=== PATIENT | female | born 1940 | race Asian ===

== ENCOUNTER 2016-07-28 00:41 | Inpatient (IN) | payer OTHER ==
[2016-07-28] MEDS ORDERED: dilTIAZem HCL 125 MG/25 ML - 25 ML VIAL ONE (00:55)
[2016-07-28] MEDS ORDERED: ADENOSINE 6 MG/2 ML VIAL IVPUSH ONE (00:55)
[2016-07-28 01:15] VITALS: BMI 16.1
[2016-07-28] MEDS ORDERED: SODIUM CHLORIDE 1,000 ML IV STA ×2 (01:15→03:11)
[2016-07-28] MEDS ORDERED: PANTOPRAZOLE SODIUM 40 MG in SODIUM CHLORIDE 100 ML IVPB ONE (01:15)
[2016-07-28] MEDS ORDERED: PANTOPRAZOLE SODIUM 40 MG VIAL ONE (01:19)
[2016-07-28 01:32] LABS: BASOPHIL 0.3 % (0-2.0); EOSINOPHIL 0.1 % (0-4.5); MCH 34.4 pg (25.7-33.7); MCHC 34.3 g/dl (32.0-36.0); MEAN CELL VOLUME 100.3 fl (80-96); MEAN PLT VOLUME 8.4 fl (7.5-11.1); NEUTROPHILS 82.2 % (42.8-82.8); PLATELET COUNT 143 K/MM3 (134-434); RDW 12.4 % (11.6-15.6); WHITE BLOOD COUNT 10.3 K/mm3 (4.0-10.0)
[2016-07-28 01:46] LABS: INR 1.29 (0.82-1.09); PROTHROMBIN TIME (PATIENT) 14.3 SEC (9.98-11.88)
[2016-07-28 01:48] LABS: ACTIVATED PTT 36.4 SECONDS (26.9-34.4)
[2016-07-28 01:54] LABS: ALBUMIN 2.8 g/dl (3.4-5.0); ANION GAP 11 (8-16); BILIRUBIN,TOTAL 0.9 mg/dL (0.2-1.0); CALCIUM 7.6 mg/dL (8.5-10.1); CO2 24 mmol/L (21-32); CREATININE 0.8 mg/dL (0.55-1.02); GLUCOSE,RANDOM 116 mg/dL (74-106); SGOT/AST 17 U/L (15-37); SGPT/ALT 11 U/L (12-78); TOT PROT 5.8 g/dl (6.4-8.2)
[2016-07-28 01:57] LABS: ALK PHOS 46 U/L (45-117); TROPONIN I 0.02 ng/ml (0.00-0.05)
[2016-07-28] MEDS ORDERED: KCL 10 MEQ IVPB 100 ML IVPB SCH (03:15)
[2016-07-28] MEDS ORDERED: KCL 10 MEQ IVPB 100 ML IVPB ONE (03:18)
--- NOTE | 2016-07-28 05:17 | PDOC ---
History of Present Illness - General Chief Complaint: Irregular Heart Beat Stated Complaint: CHEST PAIN Time Seen by Provider: 07/28/16 01:09 History Source: Patient Exam Limitations: No Limitations - History of Present Illness Initial Comments: 07/28/16 05:12 76yo Female patient w/ PmHx: HTN, CVA, Asthma, COPD presents to ED c/o Chest Pain radiating to her left shoulder. Patient denies nausea, vomiting, diarrhea, fever, trouble breathing, back pain, dizziness, lightheadedness, syncope or any other complaints at this time. Presenting Symptoms: Chest Pain Timing/Duration: reports: constant Severity/Quality: reports: moderate Location: reports: substernal Chest Pain Radiation: reports: arms, shoulders Activities at Onset: reports: no specific activity Past History - Travel Traveled outside of the country in the last 30 days: No Close contact w/someone who was outside of country & ill: No - Past Medical History Allergies/Adverse Reactions: Allergies Allergy/AdvReac Type Severity Reaction Status Date / Time No Known Allergies Allergy Verified 11/26/15 23:48 Home Medications: Ambulatory Orders Aspirin [David Chewable] 81 mg PO DAILY 11/27/15 Cholecalciferol (Vitamin D3) [Vitamin D3 -] 50,000 unit PO WEEKLY 11/27/15 Esomeprazole Magnesium [Nexium 24Hr] 40 mg PO DAILY 11/27/15 Ferrous Sulfate 325 mg PO DAILY 11/27/15 Fluticasone/Salmeterol [Advair 250-50 Diskus] 1 each IH BID 11/27/15 Folic Acid 1 mg PO DAILY 11/27/15 Mirabegron [Myrbetriq] 25 mg PO DAILY 11/27/15 Nitroglycerin [Nitrostat] 0.4 mg SL PRN PRN 11/27/15 Raloxifene HCl 60 mg PO DAILY 11/27/15 Sennosides [Senna] 8.6 mg PO DAILY 11/27/15 Simvastatin 20 mg PO DAILY 11/27/15 Tiotropium [place] [Spiriva] 1 inh PO DAILY 11/27/15 Umeclidinium Brm/Vilanterol Tr [Anoro Ellipta 62.5-25 Mcg INH] 1 each IH ASDIR 11/27/15 Valsartan/Hydrochlorothiazide [Valsartan-Hctz 80-12.5 mg Tab] 1 each PO DAILY Vit B12/FA/Pyridoxine HCl/Aa15 [Glycotrol Capsule] 1 each PO DAILY 11/27/15 Anemia: No Asthma: No Cancer: No Cardiac Disorders: Yes CVA: No COPD: Yes CHF: No Dementia: No Diabetes: No GI Disorders: No Disorders: No HTN: Yes Hypercholesterolemia: Yes Liver Disease: No Seizures: No Thyroid Disease: No - Surgical History Abdominal Surgery: No Appendectomy: No Cardiac Surgery: No Cholecystectomy: No Lung Surgery: No Neurologic Surgery: No Orthopedic Surgery: No - Psycho/Social/Smoking Cessation Hx Anxiety: No Suicidal Ideation: No Smoking Status: No Smoking History: Unknown if ever smoked Have you smoked in the past 12 months: No Number of Cigarettes Smoked Daily: 0 Hx Alcohol Use: No Drug/Substance Use Hx: No Substance Use Type: None Cardiac Specific PMH - Complaint Specific PMHX Pacemaker: No Review of Systems - Review of Systems Able to Perform ROS?: Yes Is the patient limited Ukrainian proficient: No Constitutional: No: Chills, Fever Respiratory: No: Cough, Shortness of Breath, Stridor, Wheezing Cardiac (ROS): Yes: Chest Pain, Chest Tightness. No: Edema, Irregular Heart Rate, Palpitations, Syncope ABD/GI: No: Constipated, Diarrhea, Nausea, Vomiting : No: Burning, Dysuria, Discharge, Hematuria, Pain Musculoskeletal: No: Back Pain, Gout, Muscle Pain Integumentary: No: Bruising, Erythema, Rash, Sweating Neurological: No: Seizure, Tingling, Ataxia, Dizziness All Other Systems: Reviewed and Negative *Physical Exam - Vital Signs Last Vital Signs Temp Pulse Resp BP Pulse Ox 98.2 F 78 20 96/54 97 07/28/16 00:53 07/28/16 06:23 07/28/16 06:23 07/28/16 06:23 07/28/16 06:23 - Physical Exam General Appearance: Yes: Nourished, Appropriately Dressed. No: Apparent Distress, Mild Distress, Moderate Distress, Severe Distress HEENT: positive: EOMI, ZAINA, Normal ENT Inspection, Normal Voice, TMs Normal, Pharynx Normal, Photophobia Neck: positive: Trachea midline, Supple. negative: Rigidity, Tender lateral Respiratory/Chest: positive: Lungs Clear, Normal Breath Sounds. negative: Labored Respiration, Rapid RR, Crackles, Stridor, Wheezing Cardiovascular: positive: Regular Rhythm, Regular Rate Gastrointestinal/Abdominal: positive: Normal Bowel Sounds, Soft. negative: Distended, Guarding, Rebound, Tenderness Musculoskeletal: positive: Normal Inspection. negative: CVA Tenderness Extremity: positive: Normal Capillary Refill, Normal Inspection, Normal Range of Motion. negative: Pedal Edema, Swelling, Calf Tenderness, Erythema, Inflammation Integumentary: positive: Normal Color, Dry, Warm. negative: Pale, Cold, Moist, Swelling, Bruising Neurologic: positive: clinical audiologist II-XII NML intact, Fully Oriented, Alert, Normal Mood/ Affect, Normal Response, Motor Strength 5/5 Heart Score/ECG Review - ECG Impressions Normal ECG: Yes Non-specific ST Elevation: No Ischemic Changes: No Bradycardia: No Torsades timo Pointes: No WPW: No Comment:: 07/28/16 06:41 NSR rate 81bpm ED Treatment Course - LABORATORY CBC & Chemistry Diagram: 07/28/16 01:30 07/28/16 01:30 - ADDITIONAL ORDERS Additional order review: Laboratory Results 07/28/16 07/28/16 01:30 01:30 INR 1.29 H PTT (Actin FS) 36.4 H Sodium 136 Potassium 3.1 L Chloride 101 Carbon Dioxide 24 Anion Gap 11 BUN 19 H Creatinine 0.8 Creat Clearance w eGFR > 60 Random Glucose 116 H Calcium 7.6 L Total Bilirubin 0.9 D AST 17 ALT 11 L D Alkaline Phosphatase 46 Creatine Kinase 59 Troponin I 0.02 Total Protein 5.8 L Albumin 2.8 L 07/28/16 01:30 RBC 3.14 L MCV 100.3 H MCHC 34.3 RDW 12.4 MPV 8.4 Neutrophils % 82.2 Lymphocytes % 6.9 L D Monocytes % 10.5 H Eosinophils % 0.1 Basophils % 0.3 - RADIOLOGY Radiology Studies Ordered: Category Date Time Status CHEST X-RAY PORTABLE* [RAD] Stat Radiology 07/28/16 01:15 Taken - Medications Given in the ED: ED Medications Discontinued Medications Generic Name Dose Route Start Last Admin Trade Name Freq PRN Reason Stop Dose Admin Pantoprazole Sodium 40 mg/ 100 mls @ 200 mls/hr 07/28/16 01:15 07/28/16 01:17 Sodium Chloride IVPB 07/28/16 01:44 200 mls/hr ONCE ONE Administration Sodium Chloride 1,000 mls @ 1,000 mls/hr 07/28/16 01:15 07/28/16 01:17 Normal Saline - IV 07/28/16 02:14 1,000 mls/hr ASDIR STA Administration Potassium Chloride 100 mls @ 100 mls/hr 07/28/16 03:15 07/28/16 03:34 Potassium Chloride 10 Meq Premix Ivpb - IVPB 07/28/16 04:14 100 mls/hr Q60M MANDI Administration Sodium Chloride 1,000 mls @ 1,000 mls/hr 07/28/16 03:11 07/28/16 03:34 Normal Saline - IV 07/28/16 04:10 1,000 mls/hr ASDIR STA Administration *DC/Admit/Observation/Transfer Diagnosis at time of Disposition: Chest pain - Discharge Dispostion Condition at time of disposition: Stable - Referrals Referrals: STAFF,NOT ON [Primary Care Provider] -
--- NOTE | 2016-07-28 05:24 | PDOC ---
*Physical Exam - Vital Signs Last Vital Signs Temp Pulse Resp BP Pulse Ox 98.2 F 85 25 H 95/42 98 07/28/16 00:53 07/28/16 01:16 07/28/16 01:16 07/28/16 01:16 07/28/16 01:16 ED Treatment Course - LABORATORY CBC & Chemistry Diagram: 07/28/16 01:30 07/28/16 01:30 - ADDITIONAL ORDERS Additional order review: Laboratory Results 07/28/16 07/28/16 01:30 01:30 INR 1.29 H PTT (Actin FS) 36.4 H Sodium 136 Potassium 3.1 L Chloride 101 Carbon Dioxide 24 Anion Gap 11 BUN 19 H Creatinine 0.8 Creat Clearance w eGFR > 60 Random Glucose 116 H Calcium 7.6 L Total Bilirubin 0.9 D AST 17 ALT 11 L D Alkaline Phosphatase 46 Creatine Kinase 59 Troponin I 0.02 Total Protein 5.8 L Albumin 2.8 L 07/28/16 01:30 RBC 3.14 L MCV 100.3 H MCHC 34.3 RDW 12.4 MPV 8.4 Neutrophils % 82.2 Lymphocytes % 6.9 L D Monocytes % 10.5 H Eosinophils % 0.1 Basophils % 0.3 - Medications Given in the ED: ED Medications Discontinued Medications Generic Name Dose Route Start Last Admin Trade Name Freq PRN Reason Stop Dose Admin Pantoprazole Sodium 40 mg/ 100 mls @ 200 mls/hr 07/28/16 01:15 07/28/16 01:17 Sodium Chloride IVPB 07/28/16 01:44 200 mls/hr ONCE ONE Administration Sodium Chloride 1,000 mls @ 1,000 mls/hr 07/28/16 01:15 07/28/16 01:17 Normal Saline - IV 07/28/16 02:14 1,000 mls/hr ASDIR STA Administration Potassium Chloride 100 mls @ 100 mls/hr 07/28/16 03:15 07/28/16 03:34 Potassium Chloride 10 Meq Premix Ivpb - IVPB 07/28/16 04:14 100 mls/hr Q60M MANDI Administration Sodium Chloride 1,000 mls @ 1,000 mls/hr 07/28/16 03:11 07/28/16 03:34 Normal Saline - IV 07/28/16 04:10 1,000 mls/hr ASDIR STA Administration Medical Decision Making - Medical Decision Making 07/28/16 05:23 agree with care GIOVANNA Alaniz *DC/Admit/Observation/Transfer Diagnosis at time of Disposition: Chest pain - Discharge Dispostion Condition at time of disposition: Stable Admit: No
[2016-07-28 06:47] LABS: TROPONIN I 0.15 ng/ml (0.00-0.05)
[2016-07-28] MEDS ORDERED: ASPIRIN 81 MG CHEWABLE TABLETS PO ONE (07:02)
[2016-07-28] MEDS ORDERED: ASPIRIN 325 MG ENTERIC COATED TABLET (FP) ONE (07:07)
--- NOTE | 2016-07-28 07:38 | PDOC ---
*Physical Exam - Vital Signs Last Vital Signs Temp Pulse Resp BP Pulse Ox 98.2 F 75 18 111/50 99 07/28/16 00:53 07/28/16 07:33 07/28/16 07:33 07/28/16 07:33 07/28/16 07:33 - Physical Exam General Appearance: Yes: Appropriately Dressed. No: Apparent Distress HEENT: positive: Normal Voice Neck: positive: Supple Respiratory/Chest: positive: Normal Breath Sounds. negative: Respiratory Distress Cardiovascular: positive: Regular Rate, S1, S2 Gastrointestinal/Abdominal: positive: Soft. negative: Tender Integumentary: positive: Dry, Warm Neurologic: positive: Fully Oriented, Alert, Normal Mood/Affect ED Treatment Course - LABORATORY CBC & Chemistry Diagram: 07/28/16 01:30 07/28/16 06:12 - ADDITIONAL ORDERS Additional order review: Laboratory Results 07/28/16 07/28/16 07/28/16 06:12 06:00 01:30 INR PTT (Actin FS) Sodium 136 Potassium 3.7 3.1 L Chloride 101 Carbon Dioxide 24 Anion Gap 11 BUN 19 H Creatinine 0.8 Creat Clearance w eGFR > 60 Random Glucose 116 H Calcium 7.6 L Total Bilirubin 0.9 D AST 17 ALT 11 L D Alkaline Phosphatase 46 Creatine Kinase 67 59 Troponin I 0.15 H 0.02 Total Protein 5.8 L Albumin 2.8 L 07/28/16 01:30 INR 1.29 H PTT (Actin FS) 36.4 H Sodium Potassium Chloride Carbon Dioxide Anion Gap BUN Creatinine Creat Clearance w eGFR Random Glucose Calcium Total Bilirubin AST ALT Alkaline Phosphatase Creatine Kinase Troponin I Total Protein Albumin 07/28/16 01:30 RBC 3.14 L MCV 100.3 H MCHC 34.3 RDW 12.4 MPV 8.4 Neutrophils % 82.2 Lymphocytes % 6.9 L D Monocytes % 10.5 H Eosinophils % 0.1 Basophils % 0.3 - Medications Given in the ED: ED Medications Discontinued Medications Generic Name Dose Route Start Last Admin Trade Name Freq PRN Reason Stop Dose Admin Aspirin 324 mg 07/28/16 07:02 07/28/16 07:06 Asa - PO 07/28/16 07:03 324 mg ONCE ONE Administration Pantoprazole Sodium 40 mg/ 100 mls @ 200 mls/hr 07/28/16 01:15 07/28/16 01:17 Sodium Chloride IVPB 05/24/17 01:44 200 mls/hr ONCE ONE Administration Sodium Chloride 1,000 mls @ 1,000 mls/hr 07/28/16 01:15 07/28/16 01:17 Normal Saline - IV 07/28/16 02:14 1,000 mls/hr ASDIR STA Administration Potassium Chloride 100 mls @ 100 mls/hr 07/28/16 03:15 07/28/16 03:34 Potassium Chloride 10 Meq Premix Ivpb - IVPB 07/28/16 04:14 100 mls/hr Q60M MANDI Administration Sodium Chloride 1,000 mls @ 1,000 mls/hr 07/28/16 03:11 07/28/16 03:34 Normal Saline - IV 07/28/16 04:10 1,000 mls/hr ASDIR STA Administration Medical Decision Making - Medical Decision Making 07/28/16 07:35 Signed out to me at 7am 76-year-old female, history of hypertension, CVA, asthma, COPD, presenting with chest pain radiating to her left shoulder last night, since resolved. Found to be in SVT in the 200s at scene not improved w/ multiple doses of adenosine. At some point found to be in afib that broke with dilt, has been in NSR on ekg in ED. Given asa. Repeat troponin 0.15. Repeat EKG in progress. Patient remains asymptomatic at this time. Plan is to admit to hospitalist and contact cardiology 07/28/16 07:39 07/28/16 07:41 07/28/16 07:42 Rpt ekg unremarkable. Pending cards c/s and admission 07/28/16 07:43 07/28/16 08:25 Pt admitted to hospitalist. Dr Josue of cards aware *DC/Admit/Observation/Transfer Diagnosis at time of Disposition: Chest pain Qualifiers: Chest pain type: unspecified Qualified Code(s): R07.9 - Chest pain, unspecified - Discharge Dispostion Condition at time of disposition: Stable Admit: Yes - Referrals Referrals: STAFF,NOT ON [Primary Care Provider] - - Patient Instructions - Post Discharge Activity
--- NOTE | 2016-07-28 08:50 | HP ---
CHIEF COMPLAINT: Chest pain. PCP:Dr. Elif Hameed ( [place], [place]) Cardiology: Dr. Zari Ballard HISTORY OF PRESENT ILLNESS: Language barrier 76 yo Syriac speaking female with PMHx CAD (no stent), HTN, HLD, COPD presents to ED via EMS after complaints of chest pain. As per EMS patient found to have PSVT and HR of 200 and given adenosine and HR came down to 130 in Afib. She also mentions nausea and poor appetite for the past few days accompanied by cough. At time of this history she denies ongoing CP, SOB, palpitations, edema or abd.pain. ER course was notable for: (1)EKG showed NSR with no acute ST or T wave changes. (2)CXR- shows possible LLL consolidation. (3)Trop I (-) x1 Recent Travel: Denies PAST MEDICAL HISTORY: HTN, HLD, CAD, COPD PAST SURGICAL HISTORY: cataract Social History: Smoking: no Alcohol:no Drugs: no Family History: Allergies No Known Allergies Allergy (Verified 11/26/15 23:48) HOME MEDICATIONS: Home Medications Medication Instructions Recorded Aspirin [David Chewable] 81 mg PO DAILY 11/27/15 Cholecalciferol (Vitamin D3) 50,000 unit PO WEEKLY 11/27/15 [Vitamin D3 -] Esomeprazole Magnesium [Nexium 40 mg PO DAILY 11/27/15 24Hr] Ferrous Sulfate 325 mg PO DAILY 11/27/15 Fluticasone/Salmeterol [Advair 1 each IH BID 11/27/15 250-50 Diskus] Folic Acid 1 mg PO DAILY 11/27/15 Mirabegron [Myrbetriq] 25 mg PO DAILY 11/27/15 Nitroglycerin [Nitrostat] 0.4 mg SL PRN PRN 11/27/15 Raloxifene HCl 60 mg PO DAILY 11/27/15 Sennosides [Senna] 8.6 mg PO DAILY 11/27/15 Simvastatin 20 mg PO DAILY 11/27/15 Tiotropium [place] [Spiriva] 1 inh PO DAILY 11/27/15 Umeclidinium Brm/Vilanterol Tr 1 each IH ASDIR 11/27/15 [Anoro Ellipta 62.5-25 Mcg INH] Valsartan/Hydrochlorothiazide 1 each PO DAILY 11/27/15 [Valsartan-Hctz 80-12.5 mg Tab] Vit B12/FA/Pyridoxine HCl/Aa15 1 each PO DAILY 11/27/15 [Glycotrol Capsule] REVIEW OF SYSTEMS difficult to obtain due to language barrier. PHYSICAL EXAMINATION GENERAL: awake and alert, NAD HEAD: AT/NC. EYES: PERRLA, EOMI sclera anicteric, conjunctiva clear. No lid lag. EARS, NOSE, THROAT: Dry mucous membranes. NECK:Supple with no JVD LUNGS: Diminshed breath sound Left base otherwise clear to auscultation, No wheezes, and no crackles. No accessory muscle use. HEART:RRR normal S1 and S2 ABDOMEN: soft, NT, ND , BS(+) MUSCULOSKELETAL: no deformities or CVA tenderness. UPPER EXTREMITIES: 2+ pulses, warm, well-perfused. No cyanosis. No clubbing. No peripheral edema. LOWER EXTREMITIES: 2+ pulses, warm, well-perfused. No calf tenderness. No peripheral edema. NEUROLOGICAL: Normal speech. gait not observed. PSYCHIATRIC: Cooperative. Good eye contact. Appropriate mood and affect. ASSESSMENT/PLAN: 76 yo F with significant PMHx of HTN, HLD, CAD, and COPD admitted tele to r/o ACS. Problem List - Problem (1) Chest pain Assessment/Plan: * Admitted to telemetry * PSVT vs. PAF * ASA 325 given in field -->81mg PO daily * Repeat troponin I * repeat EKG, * consult cardiology. (2) CAD (coronary artery disease) Assessment/Plan: * Continue ASA and statin (3) HTN (hypertension) Assessment/Plan: * Continue Diovan 80mg PO daily * Metoprolol 25mg PO BID (4) HLD (hyperlipidemia) Assessment/Plan: * Continue statin Lipitor 20mg PO HS (5) COPD without exacerbation Assessment/Plan: * Duonebs PRN * Symbicort 2puff IH BID * supplemental O2 PRN maintain SpO2 >90% Visit type - Emergency Visit Emergency Visit: Yes ED Registration Date: 07/28/16 Care time: The patient presented to the Emergency Department on the above date and was hospitalized for further evaluation of their emergent condition. - New Patient This patient is new to me today: Yes Date on this admission: 07/28/16 - Critical Care Critical Care patient: No
[2016-07-28] MEDS ORDERED: SODIUM CHLORIDE 1,000 ML IV SCH ×2 (09:45→17:07)
--- NOTE | 2016-07-28 10:23 | CON.CARD ---
Consult Consult Specialty:: Cardiology Referred by:: Hospitalist Medicine Reason for Consultation:: Chest pain - History of Present Illness Chief Complaint: Chest pain History of Present Illness: This is a 76 year old Danish woman with history of HTN, HLD, COPD presented to the ED with complaints of chest pain, per EMS patient found to have PSVT 200 and given adenosine and HR came down to 130 in Afib, strips unavailable for review. She denies associated symptoms of dyspnea, near or true syncope, palpitations, orthopnea, PND or LE edema. PCP: Dr. Elif Hameed ( [place], [place]) Cardiology: Dr. Zari Ballard . - History Source History Provided By: Medical Record Limitations to Obtaining History: Language Barrier - Past Medical History Cardio/Vascular: Yes: HTN - Alcohol/Substance Use Hx Alcohol Use: No - Smoking History Smoking history: Unknown if ever smoked Have you smoked in the past 12 months: No Aproximately how many cigarettes per day: 0 Home Medications - Allergies Allergies/Adverse Reactions: Allergies Allergy/AdvReac Type Severity Reaction Status Date / Time No Known Allergies Allergy Verified 11/26/15 23:48 - Home Medications Home Medications: Ambulatory Orders Aspirin [David Chewable] 81 mg PO DAILY 11/27/15 Cholecalciferol (Vitamin D3) [Vitamin D3 -] 50,000 unit PO WEEKLY 11/27/15 Esomeprazole Magnesium [Nexium 24Hr] 40 mg PO DAILY 11/27/15 Ferrous Sulfate 325 mg PO DAILY 11/27/15 Fluticasone/Salmeterol [Advair 250-50 Diskus] 1 each IH BID 11/27/15 Folic Acid 1 mg PO DAILY 11/27/15 Mirabegron [Myrbetriq] 25 mg PO DAILY 11/27/15 Nitroglycerin [Nitrostat] 0.4 mg SL PRN PRN 11/27/15 Raloxifene HCl 60 mg PO DAILY 11/27/15 Sennosides [Senna] 8.6 mg PO DAILY 11/27/15 Simvastatin 20 mg PO DAILY 11/27/15 Tiotropium [place] [Spiriva] 1 inh PO DAILY 11/27/15 Umeclidinium Brm/Vilanterol Tr [Anoro Ellipta 62.5-25 Mcg INH] 1 each IH ASDIR 11/27/15 Valsartan/Hydrochlorothiazide [Valsartan-Hctz 80-12.5 mg Tab] 1 each PO DAILY Vit B12/FA/Pyridoxine HCl/Aa15 [Glycotrol Capsule] 1 each PO DAILY 11/27/15 Review of Systems - Review of Systems Cardiovascular: reports: Chest Pain Vital Signs: Vital Signs Temperature 98.2 F 07/28/16 00:53 Pulse Rate 77 07/28/16 09:16 Respiratory Rate 18 07/28/16 09:16 Blood Pressure 99/49 07/28/16 09:16 O2 Sat by Pulse Oximetry (%) 100 07/28/16 09:16 Constitutional: Yes: No Distress, Calm Neck: Yes: Supple Respiratory: Yes: Regular, CTA Bilaterally Gastrointestinal: Yes: Normal Bowel Sounds, Soft Cardiovascular: Yes: Regular Rate and Rhythm JVD: No Carotid Bruit: No Heart Sounds: Yes: S1, S2 Edema: No - Other Data Labs, Other Data: INR, PTT INR 1.29 (0.82-1.09) H 07/28/16 01:30 Troponin, BNP 07/28/16 08:55 Troponin I 0.17 H Troponin, BNP 07/28/16 08:55 Troponin I 0.17 H NSR @ [address]-T changes Imaging - Results Chest X-ray: Report Reviewed (07/28/2016 CXR-LLL infiltrate) Problem List - Problems (1) Chest pain Code(s): R07.9 - CHEST PAIN, UNSPECIFIED Qualifiers: Chest pain type: unspecified Qualified Code(s): R07.9 - Chest pain, unspecified (2) CAD (coronary artery disease) Code(s): I25.10 - ATHSCL HEART DISEASE OF [place] CORONARY ARTERY W/O ANG PCTRS Qualifiers: Coronary Disease-Associated Artery/Lesion type: [place] artery [place] vs. transplanted heart: [place] heart Associated angina: without angina Qualified Code(s): I25.10 - Atherosclerotic heart disease of [place] coronary artery without angina pectoris (3) COPD without exacerbation Code(s): J44.9 - CHRONIC OBSTRUCTIVE PULMONARY DISEASE, UNSPECIFIED (4) HLD (hyperlipidemia) Code(s): E78.5 - HYPERLIPIDEMIA, UNSPECIFIED Qualifiers: Hyperlipidemia type: pure hypercholesterolemia Qualified Code(s): E78.00 - Pure hypercholesterolemia, unspecified; E78.0 - Pure hypercholesterolemia (5) HTN (hypertension) Code(s): I10 - ESSENTIAL (PRIMARY) HYPERTENSION Qualifiers: Hypertension type: essential hypertension Qualified Code(s): I10 - Essential (primary) hypertension (6) Demand ischemia Code(s): I24.8 - OTHER FORMS OF ACUTE ISCHEMIC HEART DISEASE (7) Paroxysmal supraventricular tachycardia Code(s): I47.1 - SUPRAVENTRICULAR TACHYCARDIA Assessment/Plan 01/26/2016 MPI: No ischemia, LVEF 74% 07/16/2015 ETT-Myoview: No ischemia, LVEF 66% 11/27/2015 Echo: Normal biventricular size and fxn, mild TR 04/04/2015 Echo: Normal LV size and fxn, mild MR, TR, [place] 1. Chest pain syndrome ? PSVT vs PAF 2, HTN/HCVD 3. Hyperlipidemia 4. Demand ischemia 5. COPD Plan: 1. Cycle enzymes to document peak, check TSH, lipid panel 2. Continue Diovan/HCT 80/12.5 qd, add Lopressor 25 bid, ASA 81 qd, Zocor 20 qhs 3. classroom monitor, will benefit from systemic anticoagulation if PAF is confirmed and documented 4. Bronchodilators, O2 as needed 5. Eventual F/u with Dr. Hameed in office. Thank you for consultative opportunity
[2016-07-28] MEDS: METOPROLOL TARTRATE 25 MG TABLET (FP) PO SCH ×2 (12:02→22:05)
[2016-07-28] MEDS: HEPARIN NA (PORCINE) 5,000 UNITS/ML 1ML VIAL SQ SCH ×2 (12:02→22:05)
--- NOTE | 2016-07-28 12:38 | PN ---
Teaching Attending Note Name of Resident: Yury Saldana ATTENDING PHYSICIAN STATEMENT I saw and evaluated the patient. I reviewed the resident's note and discussed the case with the resident. I agree with the resident's findings and plan as documented. SUBJECTIVE: This patient is a 76 year old Urdu woman with history of HTN, HLD, COPD presented to the ED with complaints of chest pain, per EMS notes, patient was found to have PSVT 200 and given adenosine and HR came down to 130 and was found to be in Afib. As per ER. Patient got converted to NSR post IVF. She denies having any dyspnea, or any chest pain at this time . Feels better, stated that she was not drinking enough water and her mouth was so dry . denies having any palpitations, YADAV or at rest. Had cough last week. OBJECTIVE: Vital Signs Temperature 98.1 F 07/28/16 10:16 Pulse Rate 66 07/28/16 10:16 Respiratory Rate 18 07/28/16 10:16 Blood Pressure 98/52 07/28/16 10:16 O2 Sat by Pulse Oximetry (%) 100 07/28/16 10:16 Constitutional: Yes: No Distress, Calm, very cooperative Neck: Yes: Supple, NO JVD Respiratory: Yes: Regular, CTA Bilaterally, GAE BL Gastrointestinal: Yes: Normal Bowel Sounds, Soft, NT, NR, positive BS Cardiovascular: Yes: Regular Rate and Rhythm, no murmur is appreciated Carotid Bruit: No Heart Sounds: Yes: S1, S2, RRR Extremities: edema, pulses are positive BL NEURO: AAOx3, NFD CBCD WBC 10.3 K/mm3 (4.0-10.0) H D 07/28/16 01:30 RBC 3.14 M/mm3 (3.60-5.2) L 07/28/16 01:30 Hgb 10.8 GM/dL (10.7-15.3) 07/28/16 01:30 Hct 31.5 % (32.4-45.2) L 07/28/16 01:30 MCV 100.3 fl (80-96) H 07/28/16 01:30 MCHC 34.3 g/dl (32.0-36.0) 07/28/16 01:30 RDW 12.4 % (11.6-15.6) 07/28/16 01:30 Plt Count 143 K/MM3 (134-434) 07/28/16 01:30 MPV 8.4 fl (7.5-11.1) 07/28/16 01:30 CMP Sodium 136 mmol/L (136-145) 07/28/16 01:30 Potassium 3.7 mmol/L (3.5-5.1) 07/28/16 06:12 Chloride 101 mmol/L (98-107) 07/28/16 01:30 Carbon Dioxide 24 mmol/L (21-32) 07/28/16 01:30 Anion Gap 11 (8-16) 07/28/16 01:30 BUN 19 mg/dL (7-18) H 07/28/16 01:30 Creatinine 0.8 mg/dL (0.55-1.02) 07/28/16 01:30 Creat Clearance w eGFR > 60 (>60) 07/28/16 01:30 Random Glucose 116 mg/dL (74-106) H 07/28/16 01:30 Calcium 7.6 mg/dL (8.5-10.1) L 07/28/16 01:30 Total Bilirubin 0.9 mg/dL (0.2-1.0) D 07/28/16 01:30 AST 17 U/L (15-37) 07/28/16 01:30 ALT 11 U/L (12-78) L D 07/28/16 01:30 Alkaline Phosphatase 46 U/L (45-117) 07/28/16 01:30 Total Protein 5.8 g/dl (6.4-8.2) L 07/28/16 01:30 Albumin 2.8 g/dl (3.4-5.0) L 07/28/16 01:30 CARDIAC ENZYMES Creatine Kinase 67 IU/L (26-192) 07/28/16 06:00 Troponin I 0.17 ng/ml (0.00-0.05) H 07/28/16 08:55 Current Medications Generic Name Dose Route Start Last Admin Trade Name Freq PRN Reason Stop Dose Admin Aspirin 81 mg 07/29/16 10:00 Asa - PO DAILY [facility] Atorvastatin Calcium 20 mg 07/28/16 22:00 Lipitor - PO HS MANDI Heparin Sodium (Porcine) 5,000 unit 07/28/16 10:00 07/28/16 12:02 Heparin - SQ 5,000 unit BID MANDI Administration Sodium Chloride 1,000 mls @ 50 mls/hr 07/28/16 09:45 07/28/16 12:02 Normal Saline - IV 07/29/16 09:32 50 mls/hr ASDIR MANDI Administration Metoprolol Tartrate 25 mg 07/28/16 10:45 07/28/16 12:02 Lopressor - PO 25 mg BID MANDI Administration Valsartan 80 mg 07/29/16 10:00 Diovan - PO DAILY [facility] Home Medications Medication Instructions Recorded Aspirin [David Chewable] 81 mg PO DAILY 11/27/15 Cholecalciferol (Vitamin D3) 50,000 unit PO WEEKLY 11/27/15 [Vitamin D3 -] Esomeprazole Magnesium [Nexium 40 mg PO DAILY 11/27/15 24Hr] Ferrous Sulfate 325 mg PO DAILY 11/27/15 Fluticasone/Salmeterol [Advair 1 each IH BID 11/27/15 250-50 Diskus] Folic Acid 1 mg PO DAILY 11/27/15 Mirabegron [Myrbetriq] 25 mg PO DAILY 11/27/15 Nitroglycerin [Nitrostat] 0.4 mg SL PRN PRN 11/27/15 Raloxifene HCl 60 mg PO DAILY 11/27/15 Sennosides [Senna] 8.6 mg PO DAILY 11/27/15 Simvastatin 20 mg PO DAILY 11/27/15 Tiotropium [place] [Spiriva] 1 inh PO DAILY 11/27/15 Umeclidinium Brm/Vilanterol Tr 1 each IH ASDIR 11/27/15 [Anoro Ellipta 62.5-25 Mcg INH] Valsartan/Hydrochlorothiazide 1 each PO DAILY 11/27/15 [Valsartan-Hctz 80-12.5 mg Tab] Vit B12/FA/Pyridoxine HCl/Aa15 1 each PO DAILY 11/27/15 [Glycotrol Capsule] Laboratory Tests 07/28/16 07/28/16 07/28/16 01:30 01:30 06:00 INR 1.29 H PTT ([place] FS) 36.4 H Potassium Troponin I 0.02 0.15 H 07/28/16 07/28/16 06:12 08:55 INR PTT (Actin FS) Potassium 3.7 Troponin I 0.17 H EKG: NSR @ [address]-T changes Chest X-ray: Report Reviewed (07/28/2016 CXR-LLL infiltrate) ASSESSMENT AND PLAN: This patient is a 76 year old Urdu woman with history of HTN, HLD, COPD presented to the ED with complaints of chest pain, per EMS notes, patient was found to have PSVT 200 and given adenosine and HR came down to 130 and was found to be in Afib. # Acute chest r/o ACS ; serial troponins ordered, EKG, Cardio consult appreciated. Troponins 0.02-->0.15-->0.17 , Troponin 4th set is pending. # s/p PSVT of 200, s/p adenosine, admit patient to Telemetry for further monitoring # Hx of COPD reported LLL infiltrate on 07/28/2016 , had cough last week , Patient is afebrile, no fever, no leukocytosis will monitor. clinically. #Hx of HTN continue meds # hx of T2DM sliding scale with coverage DVT Px: Heparin sq
--- NOTE | 2016-07-28 12:47 | EKG ---
Test Reason : Blood Pressure : / mmHG Vent. Rate : 081 BPM Atrial Rate : 081 BPM P-R Int : 176 ms QRS Dur : 084 ms QT Int : 404 ms P-R-T Axes : 043 064 017 degrees QTc Int : 469 ms NORMAL SINUS RHYTHM NORMAL ECG WHEN COMPARED WITH ECG OF 26-NOV-2015 23:34, NO SIGNIFICANT CHANGE WAS FOUND Confirmed by KENDALL RAMIREZ MD ([id number]) on 07/28/2016 12:47:36 PM Referred By: Confirmed By:KENDALL RAMIREZ MD
--- NOTE | 2016-07-28 12:49 | EKG ---
Test Reason : Blood Pressure : / mmHG Vent. Rate : 075 BPM Atrial Rate : 075 BPM P-R Int : 170 ms QRS Dur : 086 ms QT Int : 414 ms P-R-T Axes : 030 055 040 degrees QTc Int : 462 ms NORMAL SINUS RHYTHM NORMAL ECG WHEN COMPARED WITH ECG OF 28-JUL-2016 01:11, NO SIGNIFICANT CHANGE WAS FOUND Confirmed by KENDALL RAMIREZ MD ([id number]) on 07/28/2016 12:48:49 PM Referred By: Confirmed By:KENDALL RAMIREZ MD
[2016-07-28 13:08] LABS: TROPONIN I 0.16 ng/ml (0.00-0.05)
[2016-07-28] MEDS ORDERED: CHOLECALCIFEROL (VITAMIN D3) 400 UNIT TABLET (FP) PO SCH (13:15)
[2016-07-28 13:29] LABS: URINE APPEARANCE CLEAR; URINE BILIRUBIN NEGATIVE (NEGATIVE); URINE COLOR STRAW; URINE GLUCOSE (UA) NEGATIVE (NEGATIVE); URINE KETONE 1+ (NEGATIVE); URINE LEUK ESTERASE NEGATIVE (NEGATIVE); URINE NITRITE NEGATIVE (NEGATIVE); URINE PROTEIN NEGATIVE (NEGATIVE); URINE UROBILINOGEN NEGATIVE E.U./dl (0.2-1.0)
[2016-07-28 13:35] LABS: URINE BLOOD 1+ (NEGATIVE)
[2016-07-28 13:43] LABS: URINE RBC 1 /hpf (0-3); URINE WBC 1 /hpf (3-5)
[2016-07-28] MEDS: FERROUS SO4 325 MG TABLET (FP) PO SCH (14:24)
[2016-07-28] MEDS: BUDESONIDE/FORMETEROL FUMARATE 80/4.5 mcg INHALER IH SCH (22:00)
[2016-07-28] MEDS: ATORVASTATIN CA 20 MG TABLET (FP) PO SCH (22:05)
[2016-07-29 07:54] LABS: ALBUMIN 2.6 g/dl (3.4-5.0); ANION GAP 6 (8-16); CALCIUM 7.9 mg/dL (8.5-10.1); CO2 27 mmol/L (21-32); GLUCOSE,RANDOM 96 mg/dL (74-106); MAGNESIUM 2.1 mg/dL (1.8-2.4); SGPT/ALT 11 U/L (12-78)
[2016-07-29 08:02] LABS: FREE T4 1.28 ng/dl (0.76-1.46)
[2016-07-29 08:03] LABS: ALK PHOS 43 U/L (45-117); BILIRUBIN,TOTAL 0.4 mg/dL (0.2-1.0); CHOLESTEROL 156 mg/dL (50-200); COCKROFT - GAULT 55.3265; CREATININE 0.6 mg/dL (0.55-1.02); LDL CHOLESTEROL (ONLY SJRH) 84 mg/dL (5-100); PHOSPHOROUS 2.7 mg/dL (2.5-4.9); SGOT/AST 19 U/L (15-37); THYROID STIMULATING HORMONE 1.58 uIU/ml (0.358-3.74); TOT PROT 5.5 g/dl (6.4-8.2)
[2016-07-29 08:11] LABS: BASOPHIL 0.7 % (0-2.0); EOSINOPHIL 0.9 % (0-4.5); MCH 34.4 pg (25.7-33.7); MCHC 34.1 g/dl (32.0-36.0); MEAN CELL VOLUME 100.9 fl (80-96); MEAN PLT VOLUME 9.2 fl (7.5-11.1); NEUTROPHILS 61.1 % (42.8-82.8); PLATELET COUNT 152 K/MM3 (134-434); RDW 12.5 % (11.6-15.6); WHITE BLOOD COUNT 5.1 K/mm3 (4.0-10.0)
[2016-07-29 08:44] LABS: TROPONIN I 0.1 ng/ml (0.00-0.05)
[2016-07-29 08:54] LABS: INR 1.12 (0.82-1.09); PROTHROMBIN TIME (PATIENT) 12.3 SEC (9.98-11.88)
[2016-07-29] MEDS: HEPARIN NA (PORCINE) 5,000 UNITS/ML 1ML VIAL SQ SCH (09:56)
[2016-07-29] MEDS: FERROUS SO4 325 MG TABLET (FP) PO SCH (09:57)
[2016-07-29] MEDS: FOLIC ACID 1 MG TABLET (FP) PO SCH (09:57)
[2016-07-29] MEDS: VALSARTAN 80 MG TABLET (UD) PO SCH (09:57)
[2016-07-29] MEDS: SENNOSIDES 8.6MG TABLET (FP) PO SCH (09:57)
[2016-07-29] MEDS: METOPROLOL TARTRATE 25 MG TABLET (FP) PO SCH (09:57)
[2016-07-29] MEDS: BUDESONIDE/FORMETEROL FUMARATE 80/4.5 mcg INHALER IH SCH ×2 (09:58→22:21)
[2016-07-29] MEDS ORDERED: PATIENT'S OWN MEDICATION (NON-FORMULARY) (Raloxifene Hcl [Raloxifene Hcl] 60 MG) PO SCH (10:00)
[2016-07-29] MEDS ORDERED: ASPIRIN 81 MG CHEWABLE TABLETS PO SCH (10:00)
--- NOTE | 2016-07-29 12:49 | PN ---
Progress Note, Physician History of Present Illness: No events on telemetry, asymptomatic in unit, review of EMS runstrip shows rapid afib with rate-related changes slowed with Adenosine and Cardizem. PCP: Dr. Elif Hameed ( [place], [place]) Cardiology: Dr. Zari Ballard . - Current Medication List Current Medications: Active Medications Aspirin (Asa -) [address] [facility] Last Admin: 07/29/16 09:57 Dose: 81 mg Atorvastatin Calcium (Lipitor -) [address] [facility] Last Admin: 07/28/16 22:05 Dose: 20 mg Budesonide/Formoterol Fumarate (Symbicort 80/4.5mcg -) [address] [facility] Last Admin: 07/29/16 09:58 Dose: 2 puff Ferrous Sulfate (Feosol -) [address] [facility] Last Admin: 07/29/16 09:57 Dose: 325 mg Folic Acid (Folic Acid -) [address] [facility] Last Admin: 07/29/16 09:57 Dose: 1 mg Heparin Sodium (Porcine) (Heparin -) 5,[address] [facility] Last Admin: 07/29/16 09:56 Dose: 5,000 unit Metoprolol Tartrate (Lopressor -) [address] [facility] Last Admin: 07/29/16 09:57 Dose: 25 mg Senna (Senna -) [address] [facility] Last Admin: 07/29/16 09:57 Dose: 1 tab Valsartan (Diovan -) [address] [facility] Last Admin: 07/29/16 09:57 Dose: 80 mg - Objective Vital Signs: Vital Signs Temperature 98.4 F 07/29/16 10:00 Pulse Rate 74 07/29/16 10:00 Respiratory Rate 20 07/29/16 10:00 Blood Pressure 127/62 07/29/16 10:00 O2 Sat by Pulse Oximetry (%) 95 07/29/16 10:00 Constitutional: Yes: No Distress, Calm, Thin Neck: Yes: Supple Cardiovascular: Yes: Regular Rate and Rhythm Respiratory: Yes: Regular, CTA Bilaterally Gastrointestinal: Yes: Normal Bowel Sounds, Soft Edema: No Labs: CBC, BMP 07/29/16 05:35 07/29/16 05:35 INR, PTT INR 1.12 (0.82-1.09) 07/29/16 05:35 Problem List - Problems (1) Chest pain Code(s): R07.9 - CHEST PAIN, UNSPECIFIED Qualifiers: Chest pain type: unspecified Qualified Code(s): R07.9 - Chest pain, unspecified (2) CAD (coronary artery disease) Code(s): I25.10 - ATHSCL HEART DISEASE OF [place] CORONARY ARTERY W/O ANG PCTRS Qualifiers: Coronary Disease-Associated Artery/Lesion type: [place] artery [place] vs. transplanted heart: [place] heart Associated angina: without angina Qualified Code(s): I25.10 - Atherosclerotic heart disease of [place] coronary artery without angina pectoris (3) COPD without exacerbation Code(s): J44.9 - CHRONIC OBSTRUCTIVE PULMONARY DISEASE, UNSPECIFIED (4) HLD (hyperlipidemia) Code(s): E78.5 - HYPERLIPIDEMIA, UNSPECIFIED Qualifiers: Hyperlipidemia type: pure hypercholesterolemia Qualified Code(s): E78.00 - Pure hypercholesterolemia, unspecified; E78.0 - Pure hypercholesterolemia (5) HTN (hypertension) Code(s): I10 - ESSENTIAL (PRIMARY) HYPERTENSION Qualifiers: Hypertension type: essential hypertension Qualified Code(s): I10 - Essential (primary) hypertension (6) Demand ischemia Code(s): I24.8 - OTHER FORMS OF ACUTE ISCHEMIC HEART DISEASE (7) Paroxysmal atrial fibrillation Code(s): I48.0 - PAROXYSMAL ATRIAL FIBRILLATION Assessment/Plan 01/26/2016 MPI: No ischemia, LVEF 74% 07/16/2015 ETT-Myoview: No ischemia, LVEF 66% 11/27/2015 Echo: Normal biventricular size and fxn, mild TR 04/04/2015 Echo: Normal LV size and fxn, mild MR, TR, [place] 1. Chest pain syndrome referable to PAF->SR [id number] 2, HTN/HCVD 3. Hyperlipidemia 4. Demand ischemia 5. COPD Plan: 1. Trops have peaked 2. Continue Diovan 80 qd, Toprol XL 25 qd, start Eliquis 5 bid and Lipitor 20 qhs 3. 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 Bronchodilators, O2 as needed 5. Will f/u with Dr. Hameed in office 08/04 9:15 AM, consider cardionet to further elucidate PAF burden.
--- NOTE | 2016-07-29 14:32 | PN ---
Physical Exam: SUBJECTIVE: Patient seen and examined at bedside. No overnight events. No new complaints. Denies CP, HARRIS, SOB, abd. pain, N/V OBJECTIVE: Vital Signs Period Temp Pulse Resp BP Sys/Berg Pulse Ox Last 24 Hr 97.9 F-98.7 F 61-77 18-20 97-135/50-64 95-100 GENERAL: The patient is awake, alert, and fully oriented, in no acute distress. HEAD: Normal with no signs of trauma. EYES: PERRL, extraocular movements intact, sclera anicteric, conjunctiva clear. No ptosis. ENT: Ears normal, nares patent, oropharynx clear without exudates, moist mucous membranes. NECK: Trachea midline, full range of motion, supple. LUNGS: Breath sounds equal, clear to auscultation bilaterally, no wheezes, no crackles, no accessory muscle use. HEART: Regular rate and rhythm, S1, S2 without murmur, rub or gallop. ABDOMEN: Soft, nontender, nondistended, normoactive bowel sounds, no guarding, no rebound, no hepatosplenomegaly, no masses. EXTREMITIES: 2+ pulses, warm, well-perfused, no edema. NEUROLOGICAL: Cranial nerves II through XII grossly intact. Normal speech, gait not observed. PSYCH: Normal mood, normal affect. SKIN: Warm, dry, normal turgor, no rashes or lesions noted Laboratory Results - last 24 hr 07/28/16 07/29/16 07/29/16 13:00 05:35 05:35 WBC 5.1 D RBC 3.02 L Hgb 10.4 L Hct 30.5 L MCV 100.9 H MCHC 34.1 RDW 12.5 Plt Count 152 MPV 9.2 Neutrophils % 61.1 D Lymphocytes % 26.8 D Monocytes % 10.5 H Eosinophils % 0.9 D Basophils % 0.7 INR 1.12 Sodium Potassium Chloride Carbon Dioxide Anion Gap BUN Creatinine Creat Clearance w eGFR Random Glucose Calcium Phosphorus Magnesium Total Bilirubin AST ALT Alkaline Phosphatase Troponin I Total Protein Albumin Triglycerides Cholesterol Total LDL Cholesterol HDL Cholesterol TSH Free T4 Ur Specific [place] <= 1.005 07/29/16 07/29/16 07/29/16 05:35 05:35 05:35 WBC RBC Hgb Hct MCV MCHC RDW Plt Count MPV Neutrophils % Lymphocytes % Monocytes % Eosinophils % Basophils % INR Sodium 144 Potassium 3.6 Chloride 111 H Carbon Dioxide 27 Anion Gap 6 L BUN 18 Creatinine 0.6 D Creat Clearance w eGFR > 60 Random Glucose 96 Calcium 7.9 L Phosphorus 2.7 Magnesium 2.1 Total Bilirubin 0.4 D AST 19 ALT 11 L Alkaline Phosphatase 43 L Troponin I 0.10 H Cancelled Total Protein 5.5 L Albumin 2.6 L Triglycerides 105 Cholesterol 156 Total LDL Cholesterol 84 HDL Cholesterol 60 TSH 1.58 Free T4 1.28 Ur Specific [place] Active Medications Generic Name Dose Route Start Last Admin Trade Name Freq PRN Reason Stop Dose Admin Apixaban 5 mg 07/29/16 13:15 Eliquis - PO BID MANDI Atorvastatin Calcium 20 mg 07/28/16 22:00 07/28/16 22:05 Lipitor - PO 20 mg HS MANDI Administration Budesonide/Formoterol Fumarate 2 puff 07/28/16 22:00 07/29/16 09:58 Symbicort 80/4.5mcg - IH 2 puff BID MANDI Administration Ferrous Sulfate 325 mg 07/28/16 13:15 07/29/16 09:57 Feosol - PO 325 mg DAILY MANDI Administration Folic Acid 1 mg 07/29/16 10:00 07/29/16 09:57 Folic Acid - PO 1 mg DAILY MANDI Administration Metoprolol Succinate 25 mg 07/30/16 10:00 Toprol Xl - PO DAILY MANDI Senna 1 tab 07/29/16 10:00 07/29/16 09:57 Senna - PO 1 tab DAILY MANDI Administration Valsartan 80 mg 07/29/16 10:00 07/29/16 09:57 Diovan - PO 80 mg DAILY MANDI Administration ASSESSMENT/PLAN: Problem List - Problems (1) Chest pain Assessment/Plan: * NO events on tele. * CHADVASC2- 4 started on Eliwuis by cardiology. * ASA 325 given in field -->81mg PO daily * Repeat troponin I trending down * repeat EKG shows NSR with no st-t wave abdnormalities. (2) CAD (coronary artery disease) Assessment/Plan: * Continue ASA and statin (3) HTN (hypertension) Assessment/Plan: * Continue Diovan 80mg PO daily * Metoprolol 25mg PO BID (4) HLD (hyperlipidemia) Assessment/Plan: * Continue statin Lipitor 20mg PO HS (5) COPD without exacerbation Assessment/Plan: * Duonebs PRN * Symbicort 2puff IH BID * supplemental O2 PRN maintain SpO2 >90% Visit type - Emergency Visit Emergency Visit: Yes ED Registration Date: 07/28/16 Care time: The patient presented to the Emergency Department on the above date and was hospitalized for further evaluation of their emergent condition. - New Patient This patient is new to me today: No - Critical Care Critical Care patient: No
[2016-07-29] MEDS: APIXABAN 5 MG TABLET PO SCH ×2 (15:10→22:21)
--- NOTE | 2016-07-29 19:15 | PN ---
Teaching Attending Note Name of Resident: Yury Saldana ATTENDING PHYSICIAN STATEMENT I saw and evaluated the patient. I reviewed the resident's note and discussed the case with the resident. I agree with the resident's findings and plan as documented. SUBJECTIVE: Patient is comfortable with no acute distress, no further chest pain. OBJECTIVE: Vital Signs Temperature 98 F 07/29/16 14:00 Pulse Rate 67 07/29/16 14:00 Respiratory Rate 20 07/29/16 14:00 Blood Pressure 124/62 07/29/16 14:00 O2 Sat by Pulse Oximetry (%) 95 07/29/16 10:00 CBCD WBC 5.1 K/mm3 (4.0-10.0) D 07/29/16 05:35 RBC 3.02 M/mm3 (3.60-5.2) L 07/29/16 05:35 Hgb 10.4 GM/dL (10.7-15.3) L 07/29/16 05:35 Hct 30.5 % (32.4-45.2) L 07/29/16 05:35 MCV 100.9 fl (80-96) H 07/29/16 05:35 MCHC 34.1 g/dl (32.0-36.0) 07/29/16 05:35 RDW 12.5 % (11.6-15.6) 07/29/16 05:35 Plt Count 152 K/MM3 (134-434) 07/29/16 05:35 MPV 9.2 fl (7.5-11.1) 07/29/16 05:35 CMP Sodium 144 mmol/L (136-145) 07/29/16 05:35 Potassium 3.6 mmol/L (3.5-5.1) 07/29/16 05:35 Chloride 111 mmol/L (98-107) H 07/29/16 05:35 Carbon Dioxide 27 mmol/L (21-32) 07/29/16 05:35 Anion Gap 6 (8-16) L 07/29/16 05:35 BUN 18 mg/dL (7-18) 07/29/16 05:35 Creatinine 0.6 mg/dL (0.55-1.02) D 07/29/16 05:35 Creat Clearance w eGFR > 60 (>60) 07/29/16 05:35 Random Glucose 96 mg/dL (74-106) 07/29/16 05:35 Calcium 7.9 mg/dL (8.5-10.1) L 07/29/16 05:35 Total Bilirubin 0.4 mg/dL (0.2-1.0) D 07/29/16 05:35 AST 19 U/L (15-37) 07/29/16 05:35 ALT 11 U/L (12-78) L 07/29/16 05:35 Alkaline Phosphatase 43 U/L (45-117) L 07/29/16 05:35 Total Protein 5.5 g/dl (6.4-8.2) L 07/29/16 05:35 Albumin 2.6 g/dl (3.4-5.0) L 07/29/16 05:35 CARDIAC ENZYMES Creatine Kinase 78 IU/L (26-192) 07/28/16 12:20 Troponin I 0.10 ng/ml (0.00-0.05) H 07/29/16 05:35 Current Medications Generic Name Dose Route Start Last Admin Trade Name Freq PRN Reason Stop Dose Admin Apixaban 5 mg 07/29/16 13:15 07/29/16 15:10 Eliquis - PO 5 mg BID MANDI Administration Atorvastatin Calcium 20 mg 07/28/16 22:00 07/28/16 22:05 Lipitor - PO 20 mg HS MANDI Administration Budesonide/Formoterol Fumarate 2 puff 07/28/16 22:00 07/29/16 09:58 Symbicort 80/4.5mcg - IH 2 puff BID MANDI Administration Ferrous Sulfate 325 mg 07/28/16 13:15 07/29/16 09:57 Feosol - PO 325 mg DAILY MANDI Administration Folic Acid 1 mg 07/29/16 10:00 07/29/16 09:57 Folic Acid - PO 1 mg DAILY MANDI Administration Metoprolol Succinate 25 mg 07/30/16 10:00 Toprol Xl - PO DAILY MANDI Senna 1 tab 07/29/16 10:00 07/29/16 09:57 Senna - PO 1 tab DAILY MANDI Administration Valsartan 80 mg 07/29/16 10:00 07/29/16 09:57 Diovan - PO 80 mg DAILY MANDI Administration Home Medications Medication Instructions Recorded Aspirin [David Chewable] 81 mg PO DAILY 11/27/15 Cholecalciferol (Vitamin D3) 50,000 unit PO WEEKLY 11/27/15 [Vitamin D3 -] Esomeprazole Magnesium [Nexium 40 mg PO DAILY 11/27/15 24Hr] Ferrous Sulfate 325 mg PO DAILY 11/27/15 Fluticasone/Salmeterol [Advair 1 each IH BID 11/27/15 250-50 Diskus] Folic Acid 1 mg PO DAILY 11/27/15 Mirabegron [Myrbetriq] 25 mg PO DAILY 11/27/15 Nitroglycerin [Nitrostat] 0.4 mg SL PRN PRN 11/27/15 Raloxifene HCl 60 mg PO DAILY 11/27/15 Sennosides [Senna] 8.6 mg PO DAILY 11/27/15 Simvastatin 20 mg PO DAILY 11/27/15 Tiotropium [place] [Spiriva] 1 inh PO DAILY 11/27/15 Umeclidinium Brm/Vilanterol Tr 1 each IH ASDIR 11/27/15 [Anoro Ellipta 62.5-25 Mcg INH] Valsartan/Hydrochlorothiazide 1 each PO DAILY 11/27/15 [Valsartan-Hctz 80-12.5 mg Tab] Vit B12/FA/Pyridoxine HCl/Aa15 1 each PO DAILY 11/27/15 [Glycotrol Capsule] ASSESSMENT AND PLAN: This patient is a 76 year old Telugu woman with history of HTN, HLD, COPD presented to the ED with complaints of chest pain, per EMS notes, patient was found to have PSVT 200 and given adenosine and HR came down to 130 and was found to be in Afib. # Acute chest, CO is rulled out by negative troponins , Cardio consult appreciated. Troponins 0.02-->0.15-->0.17 , Troponin 4th set is pending. Chest pain syndrome most likely due to PAF->SR [id number] on Eliquis as per [place] 5mg po bid continue. # s/p PSVT of 200, s/p adenosine, admit patient to Telemetry for further monitoring # Hx of COPD reported LLL infiltrate on 07/28/2016 , had cough last week , Patient is afebrile, no fever, no leukocytosis will monitor. clinically. #Hx of HTN continue meds # hx of T2DM sliding scale with coverage DVT Px: Eliquis possible discharge in am
[2016-07-29] MEDS: ATORVASTATIN CA 20 MG TABLET (FP) PO SCH (22:21)
[2016-07-30 07:21] LABS: MCH 34.6 pg (25.7-33.7); MCHC 34.3 g/dl (32.0-36.0); MEAN CELL VOLUME 101.1 fl (80-96); MEAN PLT VOLUME 8.7 fl (7.5-11.1); PLATELET COUNT 164 K/MM3 (134-434); RDW 12.3 % (11.6-15.6); WHITE BLOOD COUNT 3.8 K/mm3 (4.0-10.0)
[2016-07-30 07:54] LABS: CALCIUM 8.1 mg/dL (8.5-10.1)
[2016-07-30 07:55] LABS: COCKROFT - GAULT 55.3265; CREATININE 0.6 mg/dL (0.55-1.02)
[2016-07-30] MEDS: FOLIC ACID 1 MG TABLET (FP) PO SCH (09:10)
[2016-07-30] MEDS: SENNOSIDES 8.6MG TABLET (FP) PO SCH (09:10)
[2016-07-30] MEDS: VALSARTAN 80 MG TABLET (UD) PO SCH (09:10)
[2016-07-30] MEDS: APIXABAN 5 MG TABLET PO SCH (09:10)
[2016-07-30] MEDS: FERROUS SO4 325 MG TABLET (FP) PO SCH (09:11)
[2016-07-30] MEDS: BUDESONIDE/FORMETEROL FUMARATE 80/4.5 mcg INHALER IH SCH (09:12)
[2016-07-30 09:27] VITALS: BP 135/57; PULSE 82; TEMP 98.6
--- NOTE | 2016-07-30 09:55 | PN ---
Progress Note, Physician History of Present Illness: No events on telemetry, asymptomatic in unit, review of EMS runstrip shows rapid afib with rate-related changes slowed with Adenosine and Cardizem. PCP: Dr. Elif Hameed ( [place], [place]) Cardiology: Dr. Zari Ballard . - Current Medication List Current Medications: Active Medications Apixaban (Eliquis -) 5 mg PO BID [facility] Last Admin: 07/30/16 09:10 Dose: 5 mg Atorvastatin Calcium (Lipitor -) 20 mg PO HS [facility] Last Admin: 07/29/16 22:21 Dose: 20 mg Budesonide/Formoterol Fumarate (Symbicort 80/4.5mcg -) 2 puff IH BID [facility] Last Admin: 07/30/16 09:12 Dose: 2 puff Ferrous Sulfate (Feosol -) 325 mg PO DAILY [facility] Last Admin: 07/30/16 09:11 Dose: 325 mg Folic Acid (Folic Acid -) 1 mg PO DAILY [facility] Last Admin: 07/30/16 09:10 Dose: 1 mg Metoprolol Succinate (Toprol Xl -) 25 mg PO DAILY [facility] Last Admin: 07/30/16 09:11 Dose: 25 mg Senna (Senna -) 1 tab PO DAILY [facility] Last Admin: 07/30/16 09:10 Dose: 1 tab Valsartan (Diovan -) 80 mg PO DAILY [facility] Last Admin: 07/30/16 09:10 Dose: 80 mg - Objective Vital Signs: Vital Signs Temperature 98.6 F 07/30/16 09:26 Pulse Rate 82 07/30/16 09:26 Respiratory Rate 22 07/30/16 09:26 Blood Pressure 135/57 07/30/16 09:26 O2 Sat by Pulse Oximetry (%) 96 07/29/16 21:00 Constitutional: Yes: No Distress, Calm, Thin Neck: Yes: Supple Cardiovascular: Yes: Regular Rate and Rhythm Respiratory: Yes: Regular, Diminished Gastrointestinal: Yes: Normal Bowel Sounds, Soft Edema: No Labs: CBC, BMP 07/30/16 05:35 07/30/16 05:35 INR, PTT INR 1.12 (0.82-1.09) 07/29/16 05:35 - ....Imaging EKG: Report Reviewed (Tele: NSR, no PAF) Problem List - Problems (1) Chest pain Code(s): R07.9 - CHEST PAIN, UNSPECIFIED Qualifiers: Chest pain type: unspecified Qualified Code(s): R07.9 - Chest pain, unspecified (2) CAD (coronary artery disease) Code(s): I25.10 - ATHSCL HEART DISEASE OF [place] CORONARY ARTERY W/O ANG PCTRS Qualifiers: Coronary Disease-Associated Artery/Lesion type: [place] artery [place] vs. transplanted heart: [place] heart Associated angina: without angina Qualified Code(s): I25.10 - Atherosclerotic heart disease of [place] coronary artery without angina pectoris (3) COPD without exacerbation Code(s): J44.9 - CHRONIC OBSTRUCTIVE PULMONARY DISEASE, UNSPECIFIED (4) HLD (hyperlipidemia) Code(s): E78.5 - HYPERLIPIDEMIA, UNSPECIFIED Qualifiers: Hyperlipidemia type: pure hypercholesterolemia Qualified Code(s): E78.00 - Pure hypercholesterolemia, unspecified; E78.0 - Pure hypercholesterolemia (5) HTN (hypertension) Code(s): I10 - ESSENTIAL (PRIMARY) HYPERTENSION Qualifiers: Hypertension type: essential hypertension Qualified Code(s): I10 - Essential (primary) hypertension (6) Demand ischemia Code(s): I24.8 - OTHER FORMS OF ACUTE ISCHEMIC HEART DISEASE (7) Paroxysmal atrial fibrillation Code(s): I48.0 - PAROXYSMAL ATRIAL FIBRILLATION Assessment/Plan 01/26/2016 MPI: No ischemia, LVEF 74% 07/16/2015 ETT-Myoview: No ischemia, LVEF 66% 11/27/2015 Echo: Normal biventricular size and fxn, mild TR 04/04/2015 Echo: Normal LV size and fxn, mild MR, TR, [place] 1. Chest pain syndrome referable to PAF->SR [id number] 2, HTN/HCVD 3. Hyperlipidemia 4. Demand ischemia 5. COPD Plan: 1. Trops have peaked 2. 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 Bronchodilators, O2 as needed 5. Will f/u with Dr. Hameed in office 08/04 9:15 AM, consider cardionet to further elucidate PAF burden.
[2016-07-30] MEDS ORDERED: METOPROLOL SUCCINATE 25 MG TAB.SR.24H (FP) PO SCH (10:00)
[2016-07-30] MEDS ORDERED: PT OWN MED DRAWER 7, Y5N ONE (10:01)
--- NOTE | 2016-07-30 11:28 | DS ---
Physical Exam: SUBJECTIVE: Patient seen and examined at bedside.No overnight events. No new compliants. Denies CP,HARRIS,SOB,abd. pain, N/V. OBJECTIVE: Vital Signs Period Temp Pulse Resp BP Sys/Berg Pulse Ox Last 24 Hr 97.9 F-98.6 F 62-82 18-22 120-135/57-67 96 PHYSICAL EXAM GENERAL: AAOx3 NAD HEAD:NC/AT EYES: PERRL, EOMI, sclera anicteric, conjunctiva clear. ENT: moist mucous membranes. NECK: Supple no jvd LUNGS: CTAB no wheezes, no crackles, no accessory muscle use. HEART: RRR, S1, S2 without murmur, rub or gallop. ABDOMEN: Soft, NT,ND, BS(+) no guarding, no rebound, no hepatosplenomegaly, no masses. EXTREMITIES: 2+ pulses, warm, well-perfused, no edema. NEUROLOGICAL: Normal speech, gait not observed. LABS Laboratory Results - last 24 hr 07/29/16 07/30/16 07/30/16 05:35 05:35 05:35 WBC 3.8 L RBC 3.04 L Hgb 10.5 L Hct 30.7 L MCV 101.1 H MCHC 34.3 RDW 12.3 Plt Count 164 MPV 8.7 Sodium 144 Potassium 3.7 Chloride 111 H Carbon Dioxide 27 Anion Gap 6 L BUN 14 D Creatinine 0.6 Random Glucose 98 Calcium 8.1 L Free T3 2.3 HOSPITAL COURSE: 76 yo Occitan speaking female with PMHx CAD (no stent), HTN, HLD, COPD presented to ED via EMS after complaints of chest pain. As per EMS patient found to have PSVT and HR of 200 and given adenosine and HR came down to 130 in Afib. She also mentioned nausea and poor appetite for the past few days accompanied by cough. ER course was notable for: (1)EKG showed NSR with no acute ST or T wave changes. (2)CXR- shows possible LLL consolidation. (3)Trop I (-) x1 Date of Admission:07/28/16 Date of Discharge: 07/30/16 Minutes to complete discharge: 35 Discharge Summary Reason For Visit: CHEST PAIN Current Active Problems Chest pain (Acute) Demand ischemia (Acute) Paroxysmal atrial fibrillation (Acute) Paroxysmal supraventricular tachycardia (Acute) Condition: Stable - Instructions Diet, Activity, Other Instructions: Please follow up with chart clerk Dr. Hameed on July. 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 One new medication Eliquis is a blood thinner please be conscious of any signs of bleeding and notify your doctor immediately. Regular diet. Increase activity as tolerated. Referrals: STAFF,NOT ON [Primary Care Provider] - Disposition: HOME - Home Medications Comprehensive Discharge Medication List: Ambulatory Orders Aspirin [David Chewable Aspirin] 81 mg PO DAILY 11/27/15 Cholecalciferol (Vitamin D3) [Vitamin D -] 50,000 unit PO WEEKLY 11/27/15 Esomeprazole Magnesium [Nexium 24Hr] 40 mg PO DAILY 11/27/15 Ferrous Sulfate 325 mg PO DAILY 11/27/15 Fluticasone/Salmeterol [Advair 250-50 Diskus] 1 each IH BID 11/27/15 Folic Acid 1 mg PO DAILY 11/27/15 Mirabegron [Myrbetriq] 25 mg PO DAILY 11/27/15 Nitroglycerin [Nitrostat] 0.4 mg SL PRN PRN 11/27/15 Raloxifene HCl 60 mg PO DAILY 11/27/15 Sennosides [Senna] 8.6 mg PO DAILY 11/27/15 Simvastatin 20 mg PO DAILY 11/27/15 Tiotropium [place] [Spiriva] 1 inh PO DAILY 11/27/15 Umeclidinium Brm/Vilanterol Tr [Anoro Ellipta 62.5-25 Mcg INH] 1 each IH ASDIR 11/27/15 Valsartan/Hydrochlorothiazide [Valsartan-Hctz 80-12.5 mg Tab] 1 each PO DAILY Vit B12/FA/Pyridoxine HCl/Aa15 [Glycotrol Capsule] 1 each PO DAILY 11/27/15 Apixaban [Eliquis -] 5 mg PO BID #60 tablet 07/30/16 Metoprolol Tartrate [Lopressor -] 25 mg PO BID #60 tablet 07/30/16 Problem List - Problems (1) Chest pain Assessment/Plan: * NO events on tele. * CHADVASC2- 4 started on Eliquis by cardiology. * Repeat troponin I trended down * repeat EKG shows NSR with no st-t wave abdnormalities. * Follow up with Cardiology in one week. * stable for discharge. (2) CAD (coronary artery disease) Assessment/Plan: * Continue ASA and statin * resume upon discharge (3) HTN (hypertension) Assessment/Plan: * Continued Diovan 80mg PO daily * Metoprolol 25mg PO BID (4) HLD (hyperlipidemia) Assessment/Plan: * Continued statin Lipitor 20mg PO HS (5) COPD without exacerbation Assessment/Plan: * Duonebs PRN * Symbicort 2puff IH BID * supplemental O2 PRN maintain SpO2 >90% This patient is new to me today: No Emergency Visit: Yes ED Registration Date: 07/28/16 Care time: The patient presented to the Emergency Department on the above date and was hospitalized for further evaluation of their emergent condition. Critical Care patient: No - Discharge Referral Referred to [facility] Med P.C.: No
--- NOTE | 2016-07-30 18:16 | PN ---
Teaching Attending Note Name of Resident: Yury Saldana ATTENDING PHYSICIAN STATEMENT I saw and evaluated the patient. I reviewed the resident's note and discussed the case with the resident. I agree with the resident's findings and plan as documented. SUBJECTIVE: Patient is feeling better, no new events. comfortable, no acute distress. OBJECTIVE: Vital Signs Temperature 98.6 F 07/30/16 09:26 Pulse Rate 82 07/30/16 09:26 Respiratory Rate 22 07/30/16 09:26 Blood Pressure 135/57 07/30/16 09:26 O2 Sat by Pulse Oximetry (%) 97 07/30/16 09:00 CBCD WBC 3.8 K/mm3 (4.0-10.0) L 07/30/16 05:35 RBC 3.04 M/mm3 (3.60-5.2) L 07/30/16 05:35 Hgb 10.5 GM/dL (10.7-15.3) L 07/30/16 05:35 Hct 30.7 % (32.4-45.2) L 07/30/16 05:35 MCV 101.1 fl (80-96) H 07/30/16 05:35 MCHC 34.3 g/dl (32.0-36.0) 07/30/16 05:35 RDW 12.3 % (11.6-15.6) 07/30/16 05:35 Plt Count 164 K/MM3 (134-434) 07/30/16 05:35 MPV 8.7 fl (7.5-11.1) 07/30/16 05:35 CMP Sodium 144 mmol/L (136-145) 07/30/16 05:35 Potassium 3.7 mmol/L (3.5-5.1) 07/30/16 05:35 Chloride 111 mmol/L (98-107) H 07/30/16 05:35 Carbon Dioxide 27 mmol/L (21-32) 07/30/16 05:35 Anion Gap 6 (8-16) L 07/30/16 05:35 BUN 14 mg/dL (7-18) D 07/30/16 05:35 Creatinine 0.6 mg/dL (0.55-1.02) 07/30/16 05:35 Creat Clearance w eGFR > 60 (>60) 07/29/16 05:35 Random Glucose 98 mg/dL (74-106) 07/30/16 05:35 Calcium 8.1 mg/dL (8.5-10.1) L 07/30/16 05:35 Total Bilirubin 0.4 mg/dL (0.2-1.0) D 07/29/16 05:35 AST 19 U/L (15-37) 07/29/16 05:35 ALT 11 U/L (12-78) L 07/29/16 05:35 Alkaline Phosphatase 43 U/L (45-117) L 07/29/16 05:35 Total Protein 5.5 g/dl (6.4-8.2) L 07/29/16 05:35 Albumin 2.6 g/dl (3.4-5.0) L 07/29/16 05:35 CARDIAC ENZYMES Creatine Kinase 78 IU/L (26-192) 07/28/16 12:20 Troponin I 0.10 ng/ml (0.00-0.05) H 07/29/16 05:35 Home Medications Medication Instructions Recorded Aspirin [David Chewable Aspirin] 81 mg PO DAILY 11/27/15 Cholecalciferol (Vitamin D3) 50,000 unit PO WEEKLY 11/27/15 [Vitamin D -] Esomeprazole Magnesium [Nexium 40 mg PO DAILY 11/27/15 24Hr] Ferrous Sulfate 325 mg PO DAILY 11/27/15 Fluticasone/Salmeterol [Advair 1 each IH BID 11/27/15 250-50 Diskus] Folic Acid 1 mg PO DAILY 11/27/15 Mirabegron [Myrbetriq] 25 mg PO DAILY 11/27/15 Nitroglycerin [Nitrostat] 0.4 mg SL PRN PRN 11/27/15 Raloxifene HCl 60 mg PO DAILY 11/27/15 Sennosides [Senna] 8.6 mg PO DAILY 11/27/15 Simvastatin 20 mg PO DAILY 11/27/15 Tiotropium [place] [Spiriva] 1 inh PO DAILY 11/27/15 Umeclidinium Brm/Vilanterol Tr 1 each IH ASDIR 11/27/15 [Anoro Ellipta 62.5-25 Mcg INH] Valsartan/Hydrochlorothiazide 1 each PO DAILY 11/27/15 [Valsartan-Hctz 80-12.5 mg Tab] Vit B12/FA/Pyridoxine HCl/Aa15 1 each PO DAILY 11/27/15 [Glycotrol Capsule] Apixaban [Eliquis -] 5 mg PO BID #60 tablet 07/30/16 Metoprolol Tartrate [Lopressor -] 25 mg PO BID #60 tablet 07/30/16 Laboratory Tests 07/28/16 07/28/16 07/28/16 01:30 01:30 06:00 INR 1.29 H PTT (Actin FS) 36.4 H Potassium Troponin I 0.02 0.15 H TSH Free T4 Free T3 07/28/16 07/28/16 07/28/16 06:12 08:55 12:20 INR PTT (Actin FS) Potassium 3.7 Troponin I 0.17 H 0.16 H TSH Free T4 Free T3 07/29/16 07/29/16 07/29/16 05:35 05:35 05:35 INR PTT (Actin FS) Potassium Troponin I 0.10 H TSH 1.58 Free T4 1.28 Free T3 2.3 01/26/2016 MPI: No ischemia, LVEF 74% 07/16/2015 ETT-Myoview: No ischemia, LVEF 66% 11/27/2015 Echo: Normal biventricular size and fxn, mild TR 04/04/2015 Echo: Normal LV size and fxn, mild MR, TR, [place] EKG: NSR @ [address]-T changes Chest X-ray: Report Reviewed (07/28/2016 CXR-LLL infiltrate) ASSESSMENT AND PLAN: This patient is a 76 year old Khmer woman with history of HTN, HLD, COPD presented to the ED with complaints of chest pain, per EMS notes, patient was found to have PSVT 200 and given adenosine and HR came down to 130 and was found to be in Afib. # Acute chest ,with mildly elevated troponins due to demand Ischemia ,cardio seen the patient ;Troponins 0.02-->0.15-->0.17-->0.10 # s/p PSVT of 200, s/p adenosine s/p PAF->SR [id number], patient was started by cinder block mason Eliquis 5mg po bid # Hx of COPD reported LLL infiltrate on 07/28/2016 , had cough last week , has no symptoms of Pneumonia #Hx of HTN continue meds # hx of T2DM sliding scale with coverage Continue Diovan 80 qd, Toprol XL 25 qd, Eliquis 5 bid and Lipitor [address] Hameed in office 08/04 9:15 AM, consider cardionet to further elucidate PAF burden. POssible stress test as an outpatient. discharge patient home
== END 2016-07-30 12:17 | disposition home or self-care (01) | DRG 309 ==
LOC: JER 00:41 → JERBED 08:24 → J4W 09:31
PROVIDERS: ADMIT Internal Medicine; ATTEND Internal Medicine
DX: I48.0 Paroxysmal atrial fibrillation (principal); I24.8 Other forms of acute ischemic heart disease; I10 Essential (primary) hypertension; J45.909 Unspecified asthma, uncomplicated; J44.9 Chronic obstructive pulmonary disease, unspecified; Z86.73 Personal history of transient ischemic attack (TIA), and cerebral infarction without residual deficits; I25.10 Atherosclerotic heart disease of native coronary artery without angina pectoris; I47.1 Supraventricular tachycardia
CPT/HCPCS: 36415; 71010-TC; 80048; 80053; 80061; 81003; 81015; 82550; 83721; 83735; 84100; 84132; 84439; 84443; 84481; 84484; 85025; 85027; 85610; 85730; 93005; 93010; 93306-TC; 94010; 99285-25; J1644

== ENCOUNTER 2016-08-12 01:03 | Emergency (ER) | payer OTHER ==
[2016-08-12 01:12] VITALS: BMI 20.7
[2016-08-12 01:22] LABS: BASOPHIL 0.7 % (0-2.0); EOSINOPHIL 0.8 % (0-4.5); MCH 33.1 pg (25.7-33.7); MEAN PLT VOLUME 7.8 fl (7.5-11.1); NEUTROPHILS 46.1 % (42.8-82.8); PLATELET COUNT 242 K/MM3 (134-434); WHITE BLOOD COUNT 5.8 K/mm3 (4.0-10.0)
[2016-08-12 01:37] LABS: INR 1.5 (0.82-1.09); PROTHROMBIN TIME (PATIENT) 16.6 SEC (9.98-11.88)
[2016-08-12 01:51] LABS: ALBUMIN 3.2 g/dl (3.4-5.0); ANION GAP 8 (8-16); BILIRUBIN,TOTAL 0.2 mg/dL (0.2-1.0); CALCIUM 8.3 mg/dL (8.5-10.1); CO2 27 mmol/L (21-32); COCKROFT - GAULT 52.1645; CREATININE 0.7 mg/dL (0.55-1.02); GLUCOSE,RANDOM 98 mg/dL (74-106); SGOT/AST 22 U/L (15-37); SGPT/ALT 16 U/L (12-78); TOT PROT 6.4 g/dl (6.4-8.2)
[2016-08-12 01:54] LABS: ALK PHOS 44 U/L (45-117); TROPONIN I < 0.02 ng/ml (0.00-0.05)
--- NOTE | 2016-08-12 02:27 | PDOC ---
History of Present Illness - General History Source: Patient Exam Limitations: Language Barrier - History of Present Illness Initial Comments: 08/12/16 02:36 The patient is a 76 year old female with significant past medical history of CAD with no stent, hypertension, hyperlipidemia, and asthma/COPD who presents to the ED for elevated blood pressure prior to arrival. Poor historian secondary to language barrier. Attempted to use [employer] via cell phone with minimal translation as patient does not have her glasses to read. Patient states she took her medications last night. However, she still felt her blood pressure was elevated despite taking her medications. During triage, patients blood pressure was noted to be 178/86. She denies lightheadedness, diaphoresis, chest pain, SOB, palpitations, nausea, or vomiting. The patient denies fever, chills, cough, abdominal pain, and diarrhea. Allergies: NKDA Social History: No alcohol, tobacco, or drug use reported. Past Surgical History: None reported PCP: Dr. Elif Hameed ([place], [place]) Cardio: Dr. Zari Ballard <Cinda Crystal - Last Filed: 08/12/16 05:36> - General History Source: Patient Exam Limitations: Language Barrier <Jeremy Mitchell - Last Filed: 08/12/16 06:06> - General Chief Complaint: Blood Pressure Problem Stated Complaint: BLOOD PRESSURE PROBLEM,CHEST PAIN Time Seen by Provider: 08/12/16 02:27 Past History <Cinda Crystal - Last Filed: 08/12/16 05:36> - Past Medical History Anemia: No Asthma: No Cancer: No Cardiac Disorders: Yes CVA: No COPD: Yes CHF: No Dementia: No Diabetes: No GI Disorders: No Disorders: No HTN: Yes Hypercholesterolemia: Yes Liver Disease: No Seizures: No Thyroid Disease: No - Surgical History Abdominal Surgery: No Appendectomy: No Cardiac Surgery: No Cholecystectomy: No Lung Surgery: No Neurologic Surgery: No Orthopedic Surgery: No - Psycho/Social/Smoking Cessation Hx Anxiety: No Suicidal Ideation: No Smoking Status: No Smoking History: Never smoked Have you smoked in the past 12 months: No Number of Cigarettes Smoked Daily: 0 Information on smoking cessation initiated: No Hx Alcohol Use: No Drug/Substance Use Hx: No Substance Use Type: None <Jeremy Mitchell - Last Filed: 08/12/16 06:06> - Past Medical History Allergies/Adverse Reactions: Allergies Allergy/AdvReac Type Severity Reaction Status Date / Time No Known Allergies Allergy Verified 08/12/16 01:11 Home Medications: Ambulatory Orders Cholecalciferol (Vitamin D3) [Vitamin D -] 50,000 unit PO WEEKLY 11/27/15 Esomeprazole Magnesium [Nexium 24Hr] 40 mg PO DAILY 11/27/15 Ferrous Sulfate 325 mg PO DAILY 11/27/15 Fluticasone/Salmeterol [Advair 250-50 Diskus] 1 each IH BID 11/27/15 Folic Acid 1 mg PO DAILY 11/27/15 Nitroglycerin [Nitrostat] 0.4 mg SL PRN PRN 11/27/15 Raloxifene HCl 60 mg PO DAILY 11/27/15 Sennosides [Senna] 8.6 mg PO DAILY 11/27/15 Apixaban [Eliquis -] 5 mg PO BID #60 tablet 07/30/16 Metoprolol Tartrate [Lopressor -] 25 mg PO BID #60 tablet 07/30/16 Review of Systems - Review of Systems Able to Perform ROS?: Yes Comments:: 08/12/16 02:38 CONSTITUTIONAL: Absent: fever, chills, diaphoresis, generalized weakness, malaise, loss of appetite HEENT: Absent: rhinorrhea, nasal congestion, throat pain, throat swelling, difficulty swallowing, ear pain, eye pain, visual Changes CARDIOVASCULAR: +elevated blood pressure Absent: chest pain, syncope, palpitations, lightheadedness, peripheral edema RESPIRATORY: Absent: cough, shortness of breath, dyspnea with exertion, orthopnea, wheezing GASTROINTESTINAL: Absent: abdominal pain, abdominal distension, nausea, vomiting, diarrhea, constipation MUSCULOSKELETAL: Absent: myalgia, arthralgia, joint swelling SKIN: Absent: rash, itching, pallor NEUROLOGIC: Absent: headache, focal weakness or paresthesias, dizziness, seizure <Cinda Crystal - Last Filed: 08/12/16 05:36> *Physical Exam - Vital Signs Last Vital Signs Temp Pulse Resp BP Pulse Ox 98.9 F 62 18 178/86 99 08/12/16 01:11 08/12/16 01:11 08/12/16 01:11 08/12/16 01:11 08/12/16 01:11 - Physical Exam Comments: 08/12/16 02:38 GENERAL: Well developed, well nourished. Awake and alert. No acute distress. HEENT: Normocephalic, atraumatic. PERRLA, EOMI. No conjunctival pallor. Sclera are non- icteric. Moist mucous membranes. Oropharynx is clear. NECK: Supple. Full ROM. No JVD. Carotid pulses 2+ and symmetric, without bruits. No thyromegaly. No lymphadenopathy. CARDIOVASCULAR: Regular rate and rhythm. No murmurs, rubs, or gallops. Distal pulses are 2+ and symmetric. PULMONARY: No evidence of respiratory distress. Lungs clear to auscultation bilaterally. No wheezing, rales or rhonchi. ABDOMINAL: Soft. Non-tender. Non-distended. No rebound or guarding. No organomegaly. Normoactive bowel sounds. MUSCULOSKELETAL Normal range of motion at all joints. No bony deformities or tenderness. No CVA tenderness. EXTREMITIES: No cyanosis. No clubbing. No edema. No calf tenderness. SKIN: Warm and dry. Normal capillary refill. No rashes. No jaundice. NEUROLOGICAL: Alert, awake, appropriate. Cranial nerves 2-12 intact. Moving all extremities. No gross neurological deficits. <Cinda Crystal - Last Filed: 08/12/16 05:36> - Vital Signs Last Vital Signs Temp Pulse Resp BP Pulse Ox 98.9 F 62 18 178/86 99 08/12/16 01:11 08/12/16 01:11 08/12/16 01:11 08/12/16 01:11 08/12/16 01:11 <Jeremy Mitchell - Last Filed: 08/12/16 06:06> Heart Score/ECG Review - ECG Impressions Comment:: 08/12/16 02:38 Undetermined rhythm @61bpm Voltage criteria for L ventricular hypertrophy Abnormal ECG 08/12/16 05:36 Sinus bradycardia @51bpm Minimal voltage criteria for LVH, may be normal variant Borderline ECG <Cinda Crystal - Last Filed: 08/12/16 05:36> ED Treatment Course - LABORATORY CBC & Chemistry Diagram: 08/12/16 01:16 08/12/16 01:16 - ADDITIONAL ORDERS Additional order review: Laboratory Results 08/12/16 08/12/16 01:16 01:16 INR 1.50 H D Sodium 141 Potassium 3.6 Chloride 106 Carbon Dioxide 27 Anion Gap 8 BUN 20 H D Creatinine 0.7 Creat Clearance w eGFR > 60 Random Glucose 98 Calcium 8.3 L Total Bilirubin 0.2 D AST 22 ALT 16 D Alkaline Phosphatase 44 L Creatine Kinase 85 Troponin I < 0.02 Total Protein 6.4 Albumin 3.2 L D 08/12/16 01:16 RBC 3.19 L MCV 100.0 H MCHC 33.0 RDW 13.0 MPV 7.8 D Neutrophils % 46.1 D Lymphocytes % 44.9 H D Monocytes % 7.5 Eosinophils % 0.8 Basophils % 0.7 - RADIOLOGY Radiograph Interpretation: 08/12/16 03:15 EXAM: CHEST XRAY Reviewed by Imaging clinical documentation manager: CHEST: CARDIOVASCULAR: The cardiopericardial silhouette is enlarged. Aortic calcifications noted. The mediastinum is not widened. LUNGS: Nosnecpfic retrocardiac opacities. No large pleural effusion. There is no visible pneumothorax. BONES: The imaged osseous structures demonstrate no acute abnormality. IMPRESSION: Nonspecific left lower lobe opacities may represent atelectasis, pneumonia and/or aspiration. Cardiomegaly. <Cinda Crystal - Last Filed: 08/12/16 05:36> - LABORATORY CBC & Chemistry Diagram: 08/12/16 01:16 08/12/16 01:16 - ADDITIONAL ORDERS Additional order review: Laboratory Results 08/12/16 08/12/16 01:16 01:16 INR 1.50 H D Sodium 141 Potassium 3.6 Chloride 106 Carbon Dioxide 27 Anion Gap 8 BUN 20 H D Creatinine 0.7 Creat Clearance w eGFR > 60 Random Glucose 98 Calcium 8.3 L Total Bilirubin 0.2 D AST 22 ALT 16 D Alkaline Phosphatase 44 L Creatine Kinase 85 Troponin I < 0.02 Total Protein 6.4 Albumin 3.2 L D 08/12/16 01:16 RBC 3.19 L MCV 100.0 H MCHC 33.0 RDW 13.0 MPV 7.8 D Neutrophils % 46.1 D Lymphocytes % 44.9 H D Monocytes % 7.5 Eosinophils % 0.8 Basophils % 0.7 - RADIOLOGY Radiology Studies Ordered: Category Date Time Status CHEST X-RAY PORTABLE* [RAD] Stat Radiology 08/12/16 01:13 Taken <Jeremy Mitchell Last Filed: 08/12/16 06:06> Medical Decision Making - Medical Decision Making 08/12/16 06:06 Dr. Mitchell: The scribe's documentation has been prepared under my direction and personally reviewed by me in its entirery. I confirm that the note above accurately reflects all work, treatment, procedures, and medical decision making performed by me. <Jeremy Mitchell - Last Filed: 08/12/16 06:06> *DC/Admit/Observation/Transfer - Attestations Scribe Attestion: 08/12/16 02:39 Documentation prepared by Cinda Crystal, acting as medical detailist for Jeremy Mitchell MD/DO. <Cinda Crystal - Last Filed: 08/12/16 05:36> - Discharge Dispostion Admit: No <Jeremy Mitchell - Last Filed: 08/12/16 06:06> Diagnosis at time of Disposition: HTN (hypertension) Qualifiers: Hypertension type: essential hypertension Qualified Code(s): I10 - Essential ( primary) hypertension - Discharge Dispostion Disposition: HOME Condition at time of disposition: Stable - Referrals Referrals: David Hameed MD [Primary Care Provider] - - Patient Instructions Printed Discharge Instructions: DI for High Blood Pressure
[2016-08-12 05:38] VITALS: BP 148/57; PULSE 61; TEMP 97.4
[2016-08-12 05:58] LABS: TROPONIN I < 0.02 ng/ml (0.00-0.05)
--- NOTE | 2016-08-12 10:30 | EKG ---
Test Reason : Blood Pressure : / mmHG Vent. Rate : 061 BPM Atrial Rate : 066 BPM P-R Int : 000 ms QRS Dur : 086 ms QT Int : 454 ms P-R-T Axes : 000 060 069 degrees QTc Int : 457 ms POOR DATA QUALITY, INTERPRETATION MAY BE ADVERSELY AFFECTED SINUS RHYTHM VOLTAGE CRITERIA FOR LEFT VENTRICULAR HYPERTROPHY ABNORMAL ECG WHEN COMPARED WITH ECG OF 28-JUL-2016 07:33, CURRENT UNDETERMINED RHYTHM PRECLUDES RHYTHM COMPARISON, NEEDS REVIEW Confirmed by HEAVEN FERNANDEZ MD ([id number]) on 08/12/2016 10:29:41 AM Referred By: Confirmed By:HEAVEN FERNANDEZ MD
--- NOTE | 2016-08-12 10:34 | EKG ---
Test Reason : Blood Pressure : / mmHG Vent. Rate : 051 BPM Atrial Rate : 051 BPM P-R Int : 142 ms QRS Dur : 074 ms QT Int : 484 ms P-R-T Axes : 003 056 058 degrees QTc Int : 446 ms POOR DATA QUALITY, INTERPRETATION MAY BE ADVERSELY AFFECTED SINUS BRADYCARDIA MINIMAL VOLTAGE CRITERIA FOR LVH, MAY BE NORMAL VARIANT BORDERLINE ECG WHEN COMPARED WITH ECG OF 12-AUG-2016 01:14, PREVIOUS ECG HAS UNDETERMINED RHYTHM, NEEDS REVIEW Confirmed by HEAVEN FERNANDEZ MD ([id number]) on 08/12/2016 10:34:26 AM Referred By: Confirmed By:HEAVEN FERNANDEZ MD
== END 2016-08-12 06:25 | disposition home or self-care (01) ==
LOC: JER 01:03
DX: I10 Essential (primary) hypertension (principal); E78.5 Hyperlipidemia, unspecified; J44.9 Chronic obstructive pulmonary disease, unspecified; J45.909 Unspecified asthma, uncomplicated
CPT/HCPCS: 36415; 71010-TC; 80053; 82550; 84484; 85025; 85610; 93005; 93010; 99282-25

== ENCOUNTER 2016-09-28 16:23 | Observation (INO) | payer OTHER ==
[2016-09-28 17:29] VITALS: BMI 17.4
--- NOTE | 2016-09-28 17:38 | PDOC ---
History of Present Illness - General Chief Complaint: Chest Pain Stated Complaint: CHEST PAIN Time Seen by Provider: 09/28/16 17:14 History Source: Patient Exam Limitations: Language Barrier - History of Present Illness Initial Comments: 09/28/16 17:30 HPI conducted using translation phone services Patient is a 76 y.o. female with a PMH of CAD, HTN, HLD and Asthma who presents to the ED today c/o substernal, non-radiating, 10/10 chest pain, which she states is "burning." Patient denies any associated shortness of breath, vomiting, diaphoresis, palpitations or lightheadedness. Patient states the pain is unassociated with food consumption. Patient further denies any recent travel, sick contacts or medication changes. As per EMR patient has been evaluated on two occasions for chest pain at which time she had a resting echocardiogram, however no stress testing. PMH: HTN, CAD, HLD, Asthma Surgical: None PMD: Dr. Elif Hameed Cardiology: Dr. Zari Ballard Timing/Duration: 24 hours Past History - Past Medical History Allergies/Adverse Reactions: Allergies Allergy/AdvReac Type Severity Reaction Status Date / Time No Known Allergies Allergy Verified 09/28/16 17:56 Home Medications: Ambulatory Orders Cholecalciferol (Vitamin D3) [Vitamin D -] 50,000 unit PO WEEKLY 11/27/15 Fluticasone/Salmeterol [Advair 250-50 Diskus] 1 each IH BID 11/27/15 Nitroglycerin [Nitrostat] 0.4 mg SL PRN PRN 11/27/15 Raloxifene HCl 60 mg PO DAILY 11/27/15 Apixaban [Eliquis -] 5 mg PO BID #60 tablet 07/30/16 Metoprolol Tartrate [Lopressor -] 25 mg PO BID #60 tablet 07/30/16 Simvastatin [Zocor -] 20 mg PO HS 09/28/16 Valsartan/Hydrochlorothiazide [Valsartan-Hctz 80-12.5 mg Tab] 1 each PO DAILY Anemia: No Asthma: No Cancer: No Cardiac Disorders: Yes CVA: No COPD: Yes CHF: No Dementia: No Diabetes: No GI Disorders: No Disorders: No HTN: Yes Hypercholesterolemia: Yes Liver Disease: No Seizures: No Thyroid Disease: No - Surgical History Abdominal Surgery: No Appendectomy: No Cardiac Surgery: No Cholecystectomy: No Lung Surgery: No Neurologic Surgery: No Orthopedic Surgery: No - Psycho/Social/Smoking Cessation Hx Anxiety: No Suicidal Ideation: No Smoking Status: No Smoking History: Never smoked Have you smoked in the past 12 months: No Number of Cigarettes Smoked Daily: 0 Hx Alcohol Use: No Drug/Substance Use Hx: No Substance Use Type: None Review of Systems - Review of Systems Constitutional: No: Chills, Diaphoresis, Fever, Malaise HEENTM: No: Blurred Vision, Double Vision, Hearing Loss, Throat Pain Respiratory: No: Cough, Orthopnea, Shortness of Breath, Wheezing Cardiac (ROS): Yes: Chest Pain. No: Irregular Heart Rate, Lightheadedness, Palpitations, Chest Tightness ABD/GI: No: Constipated, Diarrhea, Nausea, Vomiting : No: Burning, Dysuria Musculoskeletal: No: Back Pain, Joint Pain, Muscle Pain, Muscle Weakness Neurological: Yes: Headache. No: Numbness, Tingling, Tremors, Weakness Psychiatric: No: Anxiety, Depression All Other Systems: Reviewed and Negative *Physical Exam - Vital Signs Last Vital Signs Temp Pulse Resp BP Pulse Ox 98.2 F 55 L 18 138/60 99 09/28/16 16:44 09/28/16 16:49 09/28/16 16:44 09/28/16 16:44 09/28/16 16:49 - Physical Exam General Appearance: Yes: Nourished, Appropriately Dressed HEENT: positive: EOMI, ZAINA Neck: positive: Trachea midline Respiratory/Chest: positive: Lungs Clear, Normal Breath Sounds Cardiovascular: positive: Regular Rhythm, Regular Rate, S1, S2 Gastrointestinal/Abdominal: positive: Normal Bowel Sounds, Soft Musculoskeletal: positive: Normal Inspection Extremity: positive: Normal Capillary Refill, Normal Inspection Integumentary: positive: Normal Color, Dry, Warm Neurologic: positive: precipitator operator II-XII NML intact, Fully Oriented, Alert ED Treatment Course - LABORATORY CBC & Chemistry Diagram: 09/28/16 17:40 09/28/16 17:40 Medical Decision Making - Medical Decision Making 09/28/16 17:39 Patient is a 76 y.o. female who presents with acute onset of chest pain. On PE , patient's VS were within normal limits and EKG showed Sinus Bradycardia (as per EMR, consistent with previous EKG of 08/11/16). Differential diagnosis included ACS (less likely) vs. Muskoskeletal chest pain vs. Atypical Chest pain. DAVID score is calculated at 5. Troponin is negative and CXR showed no acute cardiopulmonary process. Patient was admitted to Telemetry under Dr. Baker. *DC/Admit/Observation/Transfer Diagnosis at time of Disposition: Chest pain in adult, Chest pain - Discharge Dispostion Condition at time of disposition: Good Admit: Yes - Attestations Physician Attestion: 09/28/16 19:29 I, Dr. Noelle Moreira, attest that this document has been prepared under my direction and personally reviewed by me in its entirety. I further attest, that it accurately reflects all work, treatment, procedures and medical decision -making performed by me.
[2016-09-28 17:56] LABS: BASOPHIL 0.7 % (0-2.0); EOSINOPHIL 1.3 % (0-4.5); MCH 33.9 pg (25.7-33.7); MCHC 33.6 g/dl (32.0-36.0); MEAN CELL VOLUME 100.8 fl (80-96); MEAN PLT VOLUME 10.1 fl (7.5-11.1); NEUTROPHILS 53.6 % (42.8-82.8); PLATELET COUNT 139 K/MM3 (134-434); RDW 12.8 % (11.6-15.6)
[2016-09-28 18:24] LABS: ANION GAP 7 (8-16); CALCIUM 8.6 mg/dL (8.5-10.1); CO2 31 mmol/L (21-32); GLUCOSE,RANDOM 120 mg/dL (74-106)
[2016-09-28 18:30] LABS: CREATININE 0.7 mg/dL (0.55-1.02); TROPONIN I < 0.02 ng/ml (0.00-0.05)
[2016-09-28 18:32] LABS: INR 1.43 (0.82-1.09); PROTHROMBIN TIME (PATIENT) 15.8 SEC (9.98-11.88)
[2016-09-28 18:35] LABS: ACTIVATED PTT 39.7 SECONDS (26.9-34.4)
--- NOTE | 2016-09-28 19:07 | PDOC ---
Attending Attestation - Resident Resident Name: Noelle Moreira - ED Attending Attestation I have performed the following: I have examined & evaluated the patient, The case was reviewed & discussed with the resident, I agree w/resident's findings & plan, Exceptions are as noted - HPI HPI: 09/28/16 19:06 68-year-old female with past mental history of coronary disease, hypertension, hyperlipidemia, asthma presents to the emergency department for chest pain. Patient reports some chest pain relieved with nitroglycerin. States that her chest pain improved. Came into the ED for further evaluation. - Physicial Exam PE: 09/28/16 19:06 GENERAL: Awake, alert, and fully oriented, in no acute distress. HEAD: No signs of trauma EYES: PERRLA, EOMI, sclera anicteric, conjunctiva clear ENT: Auricles normal inspection, hearing grossly normal, nares patent, oropharynx clear without exudates. NECK: Normal ROM, supple, no lymphadenopathy, JVD, or masses LUNGS: Breath sounds equal, clear to auscultation bilaterally. No wheezes, and no crackles HEART: Regular rate and rhythm, normal S1 and S2, no murmurs, rubs or gallops ABDOMEN: Soft, nontender, normoactive bowel sounds. No guarding, no rebound. No masses EXTREMITIES: Normal range of motion, no edema. No clubbing or cyanosis. No cords, erythema, or tenderness NEUROLOGICAL: Cranial nerves II through XII grossly intact. Normal speech, normal gait SKIN: Warm, Dry, normal turgor, no rashes or lesions noted. - Medical Decision Making 09/28/16 19:07 Will BUD. Chest xray, labs, troponin, and admit the patient to the hospital for ACS workup. Heart Score/ECG Review - History History: Moderately suspicious - Electrocardiogram EKG: Non specific repolarization disturbance - Age Age: >/= 65 - Risk Factors Based on the list above the patient has:: >/=3 risk factors or Hx atherosclerotic disease #1 ECG reviewed & interpreted by me at: 16:35 09/28/16 19:07 NSR 52, no std/vikki, normal axis, normal intervals, QTC 431 msec
[2016-09-28] MEDS ORDERED: ASPIRIN 81 MG CHEWABLE TABLETS PO ONE (19:47)
[2016-09-28] MEDS ORDERED: ASPIRIN 81 MG CHEWABLE TABLETS ONE (19:55)
[2016-09-28] MEDS ORDERED: ATORVASTATIN CA 10 MG TABLET (FP) PO SCH (22:00)
[2016-09-28] MEDS: BUDESONIDE/FORMETEROL FUMARATE 80/4.5 mcg INHALER IH SCH (22:29)
[2016-09-28] MEDS: METOPROLOL TARTRATE 25 MG TABLET (FP) PO SCH (22:29)
[2016-09-28] MEDS: APIXABAN 5 MG TABLET PO SCH (22:29)
[2016-09-29 01:05] LABS: TROPONIN I < 0.02 ng/ml (0.00-0.05)
--- NOTE | 2016-09-29 06:24 | HP ---
CHIEF COMPLAINT: Chest Pain PCP: Dr. Elif Hameed HISTORY OF PRESENT ILLNESS: This is a 76 y/o woman with a past medical history of CAD, HTN, HLD. Who presents to the ED with chest pain x 1 day. 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 Patient reports that she took her blood pressure and it was elevated sys- 200s, then she started having chest pain radiating to her left shoulder. Patient reports having pressure to both sides of her chest. Patient reports having dizziness as well. Patient denies SOB, N/V, numbness. Patient denies fever, chills, AP, diarrhea, constipation, dysuria. ER course was notable for: (1) Cardiac Enzymes neg x1 (2) EKG- SB 52 bpm (3) Chest Xray- no Acute Disease Recent Travel: None PAST MEDICAL HISTORY: CAD HTN HLD Asthma COPD PAST SURGICAL HISTORY: Social History: Smoking: Never, second hand exposure- work Alcohol: None Drugs: None Family History: Allergies No Known Allergies Allergy (Verified 09/28/16 17:56) HOME MEDICATIONS: Home Medications Medication Instructions Recorded Cholecalciferol (Vitamin D3) 50,000 unit PO WEEKLY 11/27/15 [Vitamin D -] Fluticasone/Salmeterol [Advair 1 each IH BID 11/27/15 250-50 Diskus] Nitroglycerin [Nitrostat] 0.4 mg SL PRN PRN 11/27/15 Raloxifene HCl 60 mg PO DAILY 11/27/15 Apixaban [Eliquis -] 5 mg PO BID #60 tablet 07/30/16 Metoprolol Tartrate [Lopressor -] 25 mg PO BID #60 tablet 07/30/16 Simvastatin [Zocor -] 20 mg PO HS 09/28/16 Valsartan/Hydrochlorothiazide 1 each PO DAILY 09/28/16 [Valsartan-Hctz 80-12.5 mg Tab] REVIEW OF SYSTEMS CONSTITUTIONAL: Absent: fever, chills, diaphoresis, generalized weakness, malaise, loss of appetite, weight change HEENT: Absent: rhinorrhea, nasal congestion, throat pain, throat swelling, difficulty swallowing, mouth swelling, ear pain, eye pain, visual changes CARDIOVASCULAR: chest pain Absent: syncope, palpitations, irregular heart rate, lightheadedness, peripheral edema RESPIRATORY: Absent: cough, shortness of breath, dyspnea with exertion, orthopnea, wheezing, stridor, hemoptysis GASTROINTESTINAL: Absent: abdominal pain, abdominal distension, nausea, vomiting, diarrhea, constipation, melena, hematochezia GENITOURINARY: Absent: dysuria, frequency, urgency, hesitancy, hematuria, flank pain, genital pain MUSCULOSKELETAL: Absent: myalgia, arthralgia, joint swelling, back pain, neck pain SKIN: Absent: rash, itching, pallor HEMATOLOGIC/IMMUNOLOGIC: Absent: easy bleeding, easy bruising, lymphadenopathy, frequent infections ENDOCRINE: Absent: unexplained weight gain, unexplained weight loss, heat intolerance, cold intolerance NEUROLOGIC: Absent: headache, focal weakness or paresthesias, dizziness, unsteady gait, seizure, mental status changes, bladder or bowel incontinence PSYCHIATRIC: Absent: anxiety, depression, suicidal or homicidal ideation, hallucinations. PHYSICAL EXAMINATION Vital Signs - 24 hr 09/29/16 09/29/16 03:20 03:41 Temperature 97.5 F L 98.2 F Pulse Rate 78 Pulse Rate [ 53 L Left Radial] Respiratory 17 20 Rate Blood Pressure 165/56 Blood Pressure 127/60 [Right Arm] O2 Sat by Pulse 99 98 Oximetry (%) GENERAL: Awake, alert, and fully oriented, in no acute distress. HEAD: Normal with no signs of trauma. EYES: Pupils equal, round and reactive to light, extraocular movements intact, sclera anicteric, conjunctiva clear. No lid lag. EARS, NOSE, THROAT: Ears normal, nares patent, oropharynx clear without exudates. Moist mucous membranes. NECK: Normal range of motion, supple without lymphadenopathy, JVD, or masses. LUNGS: Breath sounds equal, clear to auscultation bilaterally. No wheezes, and no crackles. No accessory muscle use. HEART: Regular rate and rhythm, normal S1 and S2 without murmur, rub or gallop. CP non reproducible ABDOMEN: Soft, nontender, not distended, normoactive bowel sounds, no guarding, no rebound, no masses. No hepatomegaly or splenomegaly. MUSCULOSKELETAL: Normal range of motion at all joints. No bony deformities or tenderness. No CVA tenderness. UPPER EXTREMITIES: 2+ pulses, warm, well-perfused. No cyanosis. No clubbing. No peripheral edema. LOWER EXTREMITIES: 2+ pulses, warm, well-perfused. No calf tenderness. No peripheral edema. NEUROLOGICAL: Cranial nerves II-XII intact. Normal speech. Gait not observed. PSYCHIATRIC: Cooperative. Good eye contact. Appropriate mood and affect. SKIN: Warm, dry, normal turgor, no rashes or lesions noted, normal capillary refill. Laboratory Results - last 24 hr 09/28/16 09/28/16 09/28/16 17:40 17:40 17:40 WBC 4.0 D RBC 3.32 L Hgb 11.2 Hct 33.5 MCV 100.8 H MCH 33.9 H MCHC 33.6 RDW 12.8 Plt Count 139 D MPV 10.1 D Neutrophils % 53.6 Lymphocytes % 36.0 Monocytes % 8.4 Eosinophils % 1.3 Basophils % 0.7 INR 1.43 H PTT (Actin FS) 39.7 H Sodium 141 Potassium 4.1 Chloride 103 Carbon Dioxide 31 Anion Gap 7 L BUN 19 H Creatinine 0.7 Random Glucose 120 H D Calcium 8.6 Creatine Kinase 86 Troponin I < 0.02 09/29/16 00:24 WBC RBC Hgb Hct MCV MCH MCHC RDW Plt Count MPV Neutrophils % Lymphocytes % Monocytes % Eosinophils % Basophils % INR PTT (Actin FS) Sodium Potassium Chloride Carbon Dioxide Anion Gap BUN Creatinine Random Glucose Calcium Creatine Kinase 76 Troponin I < 0.02 ASSESSMENT/PLAN: This is a 76 y/o woman with a PMHx of: CAD, HTN, HLD, Asthma, COPD. Placed on Tele Observation, Chest Pain r/o ACS for further evaluation of their emergent condition. Problem List - Problem (1) Chest pain Assessment/Plan: - r/o ACS - HEART Score 5 - DAVID Score 2 - Tele monitoring - Serial Enzymes '- EKG reviewed - Chest Xray- reviewed - Appreciate Cardiology Consult - Asa - Echo 07/2016 showed LVSF normal, mod TR, mild aortic valve thickening, mild Code(s): R07.9 - CHEST PAIN, UNSPECIFIED (2) CAD (coronary artery disease) Assessment/Plan: - Continue home meds Code(s): I25.10 - ATHSCL HEART DISEASE OF [place] CORONARY ARTERY W/O ANG PCTRS Qualifiers: Coronary Disease-Associated Artery/Lesion type: elem artery [place] vs. transplanted heart: elem heart Associated angina: without angina Qualified Code(s): I25.10 - Atherosclerotic heart disease of [place] coronary artery without angina pectoris (3) HLD (hyperlipidemia) Assessment/Plan: - Lipid profile - Continue Zocor Code(s): E78.5 - HYPERLIPIDEMIA, UNSPECIFIED Qualifiers: Hyperlipidemia type: pure hypercholesterolemia Qualified Code(s): E78.00 - Pure hypercholesterolemia, unspecified; E78.0 - Pure hypercholesterolemia (4) HTN (hypertension) Assessment/Plan: - Controlled - Monitor BP - Continue home med - Low Na Diet Code(s): I10 - ESSENTIAL (PRIMARY) HYPERTENSION Qualifiers: Hypertension type: essential hypertension Qualified Code(s): I10 - Essential (primary) hypertension (5) DVT prophylaxis Assessment/Plan: - OOB - SCDs Code(s): [id number] - Visit type - Emergency Visit Emergency Visit: Yes ED Registration Date: 09/28/16 Care time: The patient presented to the Emergency Department on the above date and was hospitalized for further evaluation of their emergent condition. - New Patient This patient is new to me today: Yes Date on this admission: 09/28/16 - Critical Care Critical Care patient: No
[2016-09-29 08:23] LABS: BASOPHIL 0.8 % (0-2.0); EOSINOPHIL 0.7 % (0-4.5); MCH 34.5 pg (25.7-33.7); MCHC 34.2 g/dl (32.0-36.0); MEAN PLT VOLUME 9.6 fl (7.5-11.1); PLATELET COUNT 136 K/MM3 (134-434); RDW 12.6 % (11.6-15.6); WHITE BLOOD COUNT 4.5 K/mm3 (4.0-10.0)
[2016-09-29 08:59] LABS: CHOLESTEROL 177 mg/dL (50-200)
[2016-09-29 09:02] LABS: LDL CHOLESTEROL (ONLY SJRH) 90 mg/dL (5-100); TROPONIN I < 0.02 ng/ml (0.00-0.05)
[2016-09-29 09:14] LABS: ANION GAP 9 (8-16); CALCIUM 8.9 mg/dL (8.5-10.1); CO2 28 mmol/L (21-32); GLUCOSE,RANDOM 86 mg/dL (74-106); MAGNESIUM 2.2 mg/dL (1.8-2.4)
[2016-09-29 09:16] LABS: CREATININE 0.7 mg/dL (0.55-1.02); PHOSPHOROUS 3.7 mg/dL (2.5-4.9)
[2016-09-29] MEDS ORDERED: HYDROCHLOROTHIAZIDE 12.5 MG CAPSULE (FP) PO SCH (10:00)
[2016-09-29] MEDS ORDERED: VALSARTAN 80 MG TABLET (UD) PO SCH (10:00)
[2016-09-29] MEDS ORDERED: ASPIRIN 81 MG CHEWABLE TABLETS PO SCH (10:00)
[2016-09-29] MEDS: METOPROLOL TARTRATE 25 MG TABLET (FP) PO SCH (10:41)
[2016-09-29] MEDS: APIXABAN 5 MG TABLET PO SCH (10:41)
[2016-09-29] MEDS: BUDESONIDE/FORMETEROL FUMARATE 80/4.5 mcg INHALER IH SCH (10:43)
--- NOTE | 2016-09-29 12:05 | CON.CARD ---
Consult Consult Specialty:: Cardiology Referred by:: Hospitalist Medicine Reason for Consultation:: Chest pain - History of Present Illness Chief Complaint: Chest pain History of Present Illness: This is a 76 year old [place] woman with history of CAD, HTN, HLD, COPD, PAF->SR presented to the ED with complaints of chest pain radiating to left shoulder in context of elevated SBP 200s associated with dizziness. She denies associated symptoms of dyspnea, true syncope, palpitations, orthopnea, PND or LE edema. She subsequently ruled out for IN, BP controlled, no events on telemetry. PCP: Dr. Elif Hameed ( [place], [place]) Cardiology: Dr. Zari Ballard - History Source History Provided By: Medical Record Limitations to Obtaining History: Language Barrier - Past Medical History Cardio/Vascular: Yes: HTN ...: No - Alcohol/Substance Use Hx Alcohol Use: No - Smoking History Smoking history: Never smoked Have you smoked in the past 12 months: No Aproximately how many cigarettes per day: 0 Home Medications - Allergies Allergies/Adverse Reactions: Allergies Allergy/AdvReac Type Severity Reaction Status Date / Time No Known Allergies Allergy Verified 09/28/16 17:56 - Home Medications Home Medications: Ambulatory Orders Cholecalciferol (Vitamin D3) [Vitamin D -] 50,000 unit PO WEEKLY 11/27/15 Fluticasone/Salmeterol [Advair 250-50 Diskus] 1 each IH BID 11/27/15 Nitroglycerin [Nitrostat] 0.4 mg SL PRN PRN 11/27/15 Raloxifene HCl 60 mg PO DAILY 11/27/15 Apixaban [Eliquis -] 5 mg PO BID #60 tablet 07/30/16 Metoprolol Tartrate [Lopressor -] 25 mg PO BID #60 tablet 07/30/16 Simvastatin [Zocor -] 20 mg PO HS 09/28/16 Valsartan/Hydrochlorothiazide [Valsartan-Hctz 80-12.5 mg Tab] 1 each PO DAILY Review of Systems - Review of Systems Cardiovascular: reports: Chest Pain Vital Signs: Vital Signs Temperature 98.4 F 09/29/16 07:52 Pulse Rate 74 09/29/16 07:52 Respiratory Rate 18 09/29/16 08:00 Blood Pressure 125/74 09/29/16 07:52 O2 Sat by Pulse Oximetry (%) 100 07/26/17 08:00 Constitutional: Yes: No Distress, Calm, Thin Neck: Yes: Supple Respiratory: Yes: Regular, CTA Bilaterally Gastrointestinal: Yes: Normal Bowel Sounds, Soft Cardiovascular: Yes: Regular Rate and Rhythm JVD: No Carotid Bruit: No Heart Sounds: Yes: S1, S2 Murmur: Yes: Systolic Murmur, Grade 1 Edema: No - Other Data Labs, Other Data: CBC, BMP 09/29/16 05:40 09/29/16 05:40 INR, PTT INR 1.43 (0.82-1.09) H 09/28/16 17:40 Troponin, BNP 09/29/16 09/29/16 00:24 05:40 Troponin I < 0.02 < 0.02 Troponin, BNP 09/29/16 09/29/16 00:24 05:40 Troponin I < 0.02 < 0.02 SB min criteria LVH Holter: Report Reviewed (Tele: SR) Ejection Fraction %: LVEF > or = 40 % Imaging - Results Chest X-ray: Report Reviewed (NAD) Problem List - Problems (1) Chest pain Code(s): R07.9 - CHEST PAIN, UNSPECIFIED Qualifiers: Chest pain type: precordial pain Qualified Code(s): R07.2 - Precordial pain (2) COPD without exacerbation Code(s): J44.9 - CHRONIC OBSTRUCTIVE PULMONARY DISEASE, UNSPECIFIED (3) Paroxysmal atrial fibrillation Code(s): I48.0 - PAROXYSMAL ATRIAL FIBRILLATION (4) CAD (coronary artery disease) Code(s): I25.10 - ATHSCL HEART DISEASE OF [place] CORONARY ARTERY W/O ANG PCTRS Qualifiers: Coronary Disease-Associated Artery/Lesion type: [place] artery [place] vs. transplanted heart: [place] heart Associated angina: without angina Qualified Code(s): I25.10 - Atherosclerotic heart disease of [place] coronary artery without angina pectoris (5) HLD (hyperlipidemia) Code(s): E78.5 - HYPERLIPIDEMIA, UNSPECIFIED Qualifiers: Hyperlipidemia type: pure hypercholesterolemia Qualified Code(s): E78.00 - Pure hypercholesterolemia, unspecified; E78.0 - Pure hypercholesterolemia (6) HTN (hypertension) Code(s): I10 - ESSENTIAL (PRIMARY) HYPERTENSION Qualifiers: Hypertension type: essential hypertension Qualified Code(s): I10 - Essential (primary) hypertension Assessment/Plan 01/26/2016 MPI: No ischemia, LVEF 74% 07/16/2015 ETT-Myoview: No ischemia, LVEF 66% 11/27/2015 Echo: Normal biventricular size and fxn, mild TR 04/04/2015 Echo: Normal LV size and fxn, mild MR, TR, TN Echo 07/2016 showed LVSF normal, mod TR, mild aortic valve thickening, mild 1. Chest pain syndrome 2. PAF->SR [id number] 3. HTN/HCVD 4. Hyperlipidemia 5. CAD, no ischemia on most recent MPI 6. COPD Plan: 1. Ruled out for IN 2. Continue Diovan-HCT 80/12.5 qd, Toprol XL 25 qd, Eliquis 5 bid and Lipitor [address] unrevealing in-house for recurrent PAF 4. Bronchodilators, O2 as needed 5. May d/c from CV standpoint with f/u with Dr. Hameed Sunday 10/01 11:15 AM. Consider cardionet to further elucidate PAF burden.
[2016-09-29] MEDS ORDERED: ACETAMINOPHEN 325 MG TABLET (FP) PO ONE (12:45)
--- NOTE | 2016-09-29 12:58 | EKG ---
Test Reason : Blood Pressure : / mmHG Vent. Rate : 052 BPM Atrial Rate : 052 BPM P-R Int : 162 ms QRS Dur : 082 ms QT Int : 464 ms P-R-T Axes : 033 060 062 degrees QTc Int : 431 ms SINUS BRADYCARDIA OTHERWISE NORMAL ECG WHEN COMPARED WITH ECG OF 12-AUG-2016 05:31, NO SIGNIFICANT CHANGE WAS FOUND Confirmed by KENDALL RAMIREZ MD ([id number]) on 09/29/2016 12:58:45 PM Referred By: Confirmed By:KENDALL RAMIREZ MD
--- NOTE | 2016-09-29 13:02 | DS ---
Physical Exam: Exam obtained with assistance of [employer] milk runner #[id number] SUBJECTIVE: Patient seen and examined. Complaining of headache which started after taking ntg at home yesterday. No chest pain, shortness of breath, palpitations, or dizziness. OBJECTIVE: Vital Signs Period Temp Pulse Resp BP Sys/Berg Pulse Ox Last 24 Hr 97.5 F-98.4 F 52-78 17-20 125-165/56-74 98-100 PHYSICAL EXAM GENERAL: The patient is awake, alert, and fully oriented, in no acute distress. EYES: PERRL, extraocular movements intact, sclera anicteric, conjunctiva clear. ENT: Ears normal, nares patent, oropharynx clear without exudates, moist mucous membranes. NECK: Trachea midline, full range of motion, supple. LUNGS: Breath sounds equal, clear to auscultation bilaterally, no wheezes, no crackles, no accessory muscle use. HEART: Regular rate and rhythm, S1, S2 without murmur, rub or gallop. ABDOMEN: Soft, nontender, nondistended, normoactive bowel sounds, no guarding, no rebound, no hepatosplenomegaly, no masses. EXTREMITIES: 2+ pulses, warm, well-perfused, no edema. NEUROLOGICAL: Cranial nerves II through XII grossly intact. Normal speech, gait not observed. PSYCH: Normal mood, normal affect. SKIN: Warm, dry, normal turgor, no rashes or lesions noted. LABS Laboratory Results - last 24 hr 09/29/16 09/29/16 09/29/16 00:24 05:40 05:40 WBC 4.5 RBC 3.59 L Hgb 12.4 D Hct 36.3 MCV 101.0 H MCH 34.5 H MCHC 34.2 RDW 12.6 Plt Count 136 MPV 9.6 Neutrophils % 63.0 Lymphocytes % 28.8 Monocytes % 6.7 Eosinophils % 0.7 Basophils % 0.8 Sodium 140 Potassium 3.8 Chloride 103 Carbon Dioxide 28 Anion Gap 9 BUN 15 D Creatinine 0.7 Random Glucose 86 D Hemoglobin A1c % Calcium 8.9 Phosphorus 3.7 D Magnesium 2.2 Creatine Kinase 76 Troponin I < 0.02 Triglycerides Cholesterol Total LDL Cholesterol HDL Cholesterol 09/29/16 09/29/16 05:40 05:40 WBC RBC Hgb Hct MCV MCH MCHC RDW Plt Count MPV Neutrophils % Lymphocytes % Monocytes % Eosinophils % Basophils % Sodium Potassium Chloride Carbon Dioxide Anion Gap BUN Creatinine Random Glucose Hemoglobin A1c % 5.5 D Calcium Phosphorus Magnesium Creatine Kinase 72 Troponin I < 0.02 Triglycerides 116 Cholesterol 177 Total LDL Cholesterol 90 HDL Cholesterol 73 H D HOSPITAL COURSE: This is a 76 year old female with a history CAD/angina pectoris , HTN, and HLD who presented to the ED on 09/28 complaining of chest pain which began after taking a walk. She was also noted that her blood pressure was in the "200s" at home, although it was within normal range here. Hospital course was notable for: (1) EKG: Sinus bradycardia at 52 bpm, no ischemic changes (2) CXR: No acute process (3) Troponins negative x 3 (4) BP well-maintained on home regimen This morning she complained of some headache, which she attributed to taking ntg. Tylenol given with improvement in symptoms. Neurologic exam is normal. Plan is to continue all prescribed medications and follow up with her tread booker next week. Return precautions reviewed. Date of Admission:09/28/16 Date of Discharge: 09/29/16 Minutes to complete discharge: 35 Discharge Summary Reason For Visit: CHEST PAIN Current Active Problems Chest pain (Acute) Chest pain in adult (Acute) DVT prophylaxis (Acute) Condition: Good - Instructions Diet, Activity, Other Instructions: -Continue all of your prescribed medications -Follow up with Dr. Hameed next week -Return here for recurrent chest pain, shortness of breath, fainting/near fainting, or any other concerning symptoms Referrals: Elio Hameed MD [Staff Physician] - Disposition: HOME - Home Medications Comprehensive Discharge Medication List: Ambulatory Orders Cholecalciferol (Vitamin D3) [Vitamin D -] 50,000 unit PO WEEKLY 11/27/15 Fluticasone/Salmeterol [Advair 250-50 Diskus] 1 each IH BID 11/27/15 Nitroglycerin [Nitrostat] 0.4 mg SL PRN PRN 11/27/15 Raloxifene HCl 60 mg PO DAILY 11/27/15 Apixaban [Eliquis -] 5 mg PO BID #60 tablet 07/30/16 Metoprolol Tartrate [Lopressor -] 25 mg PO BID #60 tablet 07/30/16 Simvastatin [Zocor -] 20 mg PO HS 07/25/17 Valsartan/Hydrochlorothiazide [Valsartan-Hctz 80-12.5 mg Tab] 1 each PO DAILY This patient is new to me today: Yes Date on this admission: 10/30/16 Emergency Visit: Yes ED Registration Date: 09/28/16 Care time: The patient presented to the Emergency Department on the above date and was hospitalized for further evaluation of their emergent condition. Critical Care patient: No - Discharge Referral Referred to [facility] No
[2016-09-29 14:21] VITALS: BP 117/50; PULSE 57; TEMP 98.7
== END 2016-09-29 16:45 | disposition home or self-care (01) ==
LOC: JER 16:23 → JERBED 19:29 → J4W 09-29 04:03
PROVIDERS: ADMIT Internal Medicine; ATTEND Registered Nurse Emergency
DX: R07.9 Chest pain, unspecified (principal); I10 Essential (primary) hypertension; I25.10 Atherosclerotic heart disease of native coronary artery without angina pectoris; I48.0 Paroxysmal atrial fibrillation; E78.5 Hyperlipidemia, unspecified; J45.909 Unspecified asthma, uncomplicated; J44.9 Chronic obstructive pulmonary disease, unspecified
CPT/HCPCS: 36415; 71020-TC; 80048; 80061; 82550; 83036; 83721; 83735; 84100; 84484; 85025; 85610; 85730; 93005; 93010; 99285-25; G0378

== ENCOUNTER 2018-03-17 02:18 | Emergency (ER) | payer OTHER ==
[2018-03-17 02:35] VITALS: TEMP 98.5; BMI 26.4
[2018-03-17 03:51] LABS: BASO % 1.2 % (0-2.0); HEMATOCRIT 30.9 % (32.4-45.2); HEMOGLOBIN 10.9 GM/dL (10.7-15.3); LYMPH % 24.9 % (8-40); MCH 35.5 pg (25.7-33.7); MCHC 35.2 g/dl (32.0-36.0); MEAN CELL VOLUME 100.8 fl (80-96); MEAN PLT VOLUME 8.2 fl (7.5-11.1); MONO % 8.3 % (3.8-10.2); NEUT % 64.6 % (42.8-82.8); PLATELET COUNT 253 K/MM3 (134-434); RBC 3.06 M/mm3 (3.60-5.2); RDW 13.5 % (11.6-15.6); WHITE BLOOD COUNT 3.8 K/mm3 (4.0-10.0)
[2018-03-17 04:30] LABS: ALBUMIN 3.3 g/dl (3.4-5.0); ALK PHOS 54 U/L (45-117); ANION GAP 6 MMOL/L (8-16); BILIRUBIN,TOTAL 0.3 mg/dL (0.2-1); BLOOD UREA NITROGEN 13 mg/dL (7-18); CALCIUM 8.6 mg/dL (8.5-10.1); CHLORIDE 104 mmol/L (98-107); CO2 29 mmol/L (21-32); CREATININE 0.8 mg/dL (0.55-1.3); GLUCOSE,RANDOM 92 mg/dL (74-106); POTASSIUM 4.1 mmol/L (3.5-5.1); SGOT/AST 27 U/L (15-37); SGPT/ALT 26 U/L (13-61); SODIUM 139 mmol/L (136-145); TOT PROT 6.8 g/dl (6.4-8.2)
--- NOTE | 2018-03-17 04:57 | PDOC ---
History of Present Illness - General Chief Complaint: Chest Pain Stated Complaint: CHEST PAIN Time Seen by Provider: 03/17/18 02:21 History Source: Patient Exam Limitations: Language Barrier (Phone Muffler Hand used) Past History - Past Medical History Allergies/Adverse Reactions: Allergies Allergy/AdvReac Type Severity Reaction Status Date / Time No Known Allergies Allergy Verified 12/04/16 23:44 Home Medications: Ambulatory Orders Cholecalciferol (Vitamin D3) [Vitamin D -] 50,000 unit PO WEEKLY 11/27/15 Fluticasone/Salmeterol [Advair 250-50 Diskus] 1 each IH BID 11/27/15 Nitroglycerin [Nitrostat] 0.4 mg SL PRN PRN 11/27/15 Raloxifene HCl 60 mg PO DAILY 11/27/15 Simvastatin [Zocor -] 20 mg PO HS 09/28/16 Valsartan/Hydrochlorothiazide [Valsartan-Hctz 80-12.5 mg Tab] 1 each PO DAILY Apixaban [Eliquis] 5 mg PO BID #60 tablet 12/04/16 Metoprolol Tartrate [Lopressor -] 25 mg PO BID #60 tablet 12/04/16 Apixaban [Eliquis -] 5 mg PO BID #60 tablet 12/05/16 Metoprolol Tartrate [Lopressor -] 25 mg PO BID #60 tablet 12/05/16 Anemia: No Asthma: No Cancer: No Cardiac Disorders: Yes CVA: No COPD: Yes CHF: No Dementia: No Diabetes: No GI Disorders: No Disorders: No HTN: Yes Hypercholesterolemia: Yes Liver Disease: No Seizures: No Thyroid Disease: No - Surgical History Abdominal Surgery: No Appendectomy: No Cardiac Surgery: No Cholecystectomy: No Lung Surgery: No Neurologic Surgery: No Orthopedic Surgery: No - Immunization History Td Vaccination: Yes TDAP Vaccination: Yes Immunization Up to Date: Yes - Suicide/Smoking/Psychosocial Hx Smoking Status: No Smoking History: Unknown if ever smoked Have you smoked in the past 12 months: No Number of Cigarettes Smoked Daily: 0 Information on smoking cessation initiated: No Hx Alcohol Use: No Drug/Substance Use Hx: No Substance Use Type: None Hx Substance Use Treatment: No *Physical Exam - Vital Signs Last Vital Signs Temp Pulse Resp BP Pulse Ox 98.5 F 53 L 53 H 156/59 L 100 03/17/18 02:33 03/17/18 02:33 03/17/18 02:33 03/17/18 02:33 03/17/18 02:33 - Physical Exam General Appearance: No: Apparent Distress Respiratory/Chest: positive: Lungs Clear, Normal Breath Sounds. negative: Respiratory Distress Cardiovascular: positive: Regular Rhythm, S1, S2, Bradycardia. negative: Murmur Gastrointestinal/Abdominal: positive: Normal Bowel Sounds, Soft. negative: Tender, Distended, Guarding, Rebound Extremity: positive: Normal Inspection. negative: Pedal Edema, Calf Tenderness Integumentary: positive: Normal Color Neurologic: positive: Fully Oriented, Alert, Normal Mood/Affect Moderate Sedation - Procedure Monitoring Vital Signs: Procedure Monitoring Vital Signs Temperature 98.5 F 03/17/18 02:33 Pulse Rate 53 L 03/17/18 02:33 Respiratory Rate 53 H 03/17/18 02:33 Blood Pressure 156/59 L 03/17/18 02:33 O2 Sat by Pulse Oximetry (%) 100 03/17/18 02:33 ED Treatment Course - LABORATORY CBC & Chemistry Diagram: 03/17/18 03:30 03/17/18 03:30 - ADDITIONAL ORDERS Additional order review: Laboratory Results 03/17/18 03:30 Sodium 139 Potassium 4.1 Chloride 104 Carbon Dioxide 29 Anion Gap 6 L BUN 13 Creatinine 0.8 Creat Clearance w eGFR > 60 Random Glucose 92 Calcium 8.6 Total Bilirubin 0.3 AST 27 ALT 26 Alkaline Phosphatase 54 Creatine Kinase 66 Troponin I < 0.02 Total Protein 6.8 Albumin 3.3 L 03/17/18 03:30 RBC 3.06 L MCV 100.8 H MCHC 35.2 RDW 13.5 MPV 8.2 D Neutrophils % 64.6 Lymphocytes % 24.9 D Monocytes % 8.3 Eosinophils % 1.0 Basophils % 1.2 Medical Decision Making - Medical Decision Making 78 y/o F hx of HTN, HLD, CAD (no PCI), pAF (on Eliquis), COPD, recent hospital admission in [facility] 02/25 for ?afib with RVR (patient mentions having very fast rhythm and requiring shock (?cardioversion)) presents as having elevated BP today. Mentions her SBP was around 190 at 12 PM today and it made her anxious and restless. She continued about her day hoping the pressure would improve on it's own. However, states when she checked it again around 1 AM, it was in the 200s and she grew nervous and came to ED. Patient mentions she was in [facility] recently again around 03/10 when she was told she had PNA and was started on Augmentin. During that time, the ED physician told her to stop taking her BP meds. Patient had missed 1-2 days of her BP meds, but saw her bike technician, Dr. Zari Reagan, yesterday who told her she can resume her BP meds. Patient has been taking her BP meds since yesterday and is compliant with her meds. Currently takes Toprol XL 25 mg and Olmesartan 20 mg daily. Denies fever, URI sxs, sob, cp, abd pain, n/v, dizziness. Since coming to hospital, patient no longer feels anxious and mentions feeling comfortable. BP on initial presentation was 156/59 EKG showed sinus bradycardia at 51 bpm Initial plan to d/c patient as was feeling well, but patient mentions would feel better if we could check some labs Labs done and unremarkable Repeat BP was 147/64 Patient has f/u with her bike technician next week 03/17/18 04:45 *DC/Admit/Observation/Transfer Diagnosis at time of Disposition: Hypertension Qualifiers: Hypertension type: essential hypertension Qualified Code(s): I10 - Essential ( primary) hypertension - Discharge Dispostion Disposition: HOME Condition at time of disposition: Stable Decision to Admit order: No - Referrals - Patient Instructions Printed Discharge Instructions: DI for High Blood Pressure Additional Instructions: Thank you for choosing [facility]. It was a pleasure taking care of you. Your labs here were reassuring Please continue taking your blood pressure medications Continue follow-up with your bike technician next week Also follow-up with your PCP in 3 days. Return to the Emergency Department if your symptoms worsen or persist, you have fever, shortness of breath, chest pain, severe abdominal pain, vomiting, dizziness, weakness of extremities (arms and/or legs), changes in vision or walking or other concerning symptoms. - Post Discharge Activity
[2018-03-17 05:16] VITALS: BP 147/64; PULSE 60
--- NOTE | 2018-03-17 11:53 | EKG ---
Test Reason : Blood Pressure : / mmHG Vent. Rate : 051 BPM Atrial Rate : 051 BPM P-R Int : 170 ms QRS Dur : 080 ms QT Int : 516 ms P-R-T Axes : 046 063 057 degrees QTc Int : 475 ms SINUS BRADYCARDIA MODERATE VOLTAGE CRITERIA FOR LVH, MAY BE NORMAL VARIANT BORDERLINE ECG WHEN COMPARED WITH ECG OF 04-DEC-2016 23:32, QT HAS LENGTHENED Confirmed by ASHLEY FERREIRA, KENDALL ([id number]) on 03/17/2018 11:53:21 AM Referred By: Confirmed By:KENDALL RAMIREZ MD
== END 2018-03-17 05:16 | disposition home or self-care (01) ==
LOC: JER 02:18
DX: I10 Essential (primary) hypertension (principal); I25.10 Atherosclerotic heart disease of native coronary artery without angina pectoris; E78.00 Pure hypercholesterolemia, unspecified; I48.0 Paroxysmal atrial fibrillation; Z79.01 Long term (current) use of anticoagulants; J44.9 Chronic obstructive pulmonary disease, unspecified
CPT/HCPCS: 36415; 80053; 82550; 84484; 85025; 93005; 93010; 99282-25

== ENCOUNTER 2018-03-21 22:04 | Emergency (ER) | payer OTHER ==
--- NOTE | 2018-03-21 22:41 | PDOC ---
History of Present Illness - General Chief Complaint: Irregular Heart Beat Stated Complaint: Bradycardia Time Seen by Provider: 03/21/18 22:33 - History of Present Illness Initial Comments: 03/21/18 22:36 78 yo F with h/o HTN, CAD, Sinus bradycardia, pAF( On Eliquis), COPD, who p/w palpitations. Patient reports 9 episodes of intermittent, palpitations, today with no identifiable triggers or alleviators. Palpitations lasted seconds and resolved. No other complaints. Reports ongoing h/o similiar symptoms. Follows with Dr. Zari Ballard cardiology. Patient recently evaluated in [facility] (03/17/18) with neg workup for chest pain, repeat trop neg, EKG sinus bradycardia. Patient denies HARRIS, vision change, tinnitus, orthopnea, PND, cough, wheezing, N/V , F,C, CP, SOB, urinary complaints, abdominal pain, diarrhea, hematuria, BPR, constipation, lightheadedness, weakness, sensory changes. PMHx: as noted above. Denies h/o KS, stent placement, CABG. Denies h/o DVT/PE. ROS: as noted SHx: Denies tobacco use, Etoh, IVDA Allergies: NKDA Past History - Past Medical History Allergies/Adverse Reactions: Allergies Allergy/AdvReac Type Severity Reaction Status Date / Time No Known Allergies Allergy Verified 03/21/18 22:24 Home Medications: Ambulatory Orders Cholecalciferol (Vitamin D3) [Vitamin D -] 50,000 unit PO WEEKLY 11/27/15 Nitroglycerin [Nitrostat] 0.4 mg SL PRN PRN 11/27/15 Simvastatin [Zocor -] 20 mg PO HS 09/28/16 Metoprolol Tartrate [Lopressor -] 25 mg PO BID #60 tablet 12/04/16 Amiodarone HCl [Cordarone -] 400 mg PO DAILY 03/21/18 Apixaban [Eliquis -] 2.5 mg PO BID 03/21/18 Hydrochlorothiazide [Hctz -] 12.5 mg PO DAILY 03/21/18 Olmesartan Medoxomil [Benicar (Nf)] 20 mg PO DAILY 03/21/18 Anemia: No Asthma: No Cancer: No Cardiac Disorders: Yes CVA: No COPD: Yes CHF: No Dementia: No Diabetes: No GI Disorders: No Disorders: No HTN: Yes Hypercholesterolemia: Yes Liver Disease: No Seizures: No Thyroid Disease: No - Surgical History Abdominal Surgery: No Appendectomy: No Cardiac Surgery: No Cholecystectomy: No Lung Surgery: No Neurologic Surgery: No Orthopedic Surgery: No - Immunization History Td Vaccination: Yes TDAP Vaccination: Yes Immunization Up to Date: Yes - Suicide/Smoking/Psychosocial Hx Smoking Status: No Smoking History: Never smoked Have you smoked in the past 12 months: No Number of Cigarettes Smoked Daily: 0 Information on smoking cessation initiated: No Hx Alcohol Use: No Drug/Substance Use Hx: No Substance Use Type: None Hx Substance Use Treatment: No Review of Systems - Review of Systems Comments:: 03/21/18 22:39 GENERAL/CONSTITUTIONAL: No fever or chills. No weakness. HEAD, EYES, EARS, NOSE AND THROAT: No change in vision. No ear pain or discharge. No sore throat. CARDIOVASCULAR: + Palpitations. No chest pain or shortness of breath RESPIRATORY: No cough, wheezing, or hemoptysis. GASTROINTESTINAL: No nausea, vomiting, diarrhea or constipation. GENITOURINARY: No dysuria, frequency, or change in urination. MUSCULOSKELETAL: No joint or muscle swelling or pain. No neck or back pain. SKIN: No rash NEUROLOGIC: No headache, vertigo, loss of consciousness, or change in strength/ sensation. ENDOCRINE: No increased thirst. No abnormal weight change HEMATOLOGIC/LYMPHATIC: No anemia, easy bleeding, or history of blood clots. ALLERGIC/IMMUNOLOGIC: No hives or skin allergy. *Physical Exam - Vital Signs Last Vital Signs Temp Pulse Resp BP Pulse Ox 98.1 F 55 L 16 174/75 H 98 03/21/18 22:04 03/21/18 22:04 03/21/18 22:04 03/21/18 22:04 03/21/18 22:04 - Physical Exam Comments: 03/21/18 22:39 GENERAL: Awake, alert, and fully oriented, in no acute distress HEAD: No signs of trauma, normocephalic, atraumatic EYES: PERRLA, EOMI, sclera anicteric, conjunctiva clear ENT: Hearing grossly normal, nares patent, oropharynx clear without exudates. Moist mucosa NECK: Normal ROM, supple, no lymphadenopathy, JVD, or masses LUNGS: No distress, speaks full sentences, clear to auscultation bilaterally HEART: Irregular rate and nml rhythm, normal S1 and S2, no murmurs, rubs or gallops, peripheral pulses normal and equal bilaterally. ABDOMEN: Soft, nontender, normoactive bowel sounds. No guarding, no rebound. No masses EXTREMITIES : Normal inspection, Normal range of motion, no edema. No clubbing or cyanosis. NEUROLOGICAL: Cranial nerves II through XII grossly intact. Normal speech, normal gait, no focal sensorimotor deficits SKIN: Warm, Dry, normal turgor, no rashes or lesions noted Moderate Sedation - Procedure Monitoring Vital Signs: Procedure Monitoring Vital Signs Temperature 98.1 F 03/21/18 22:04 Pulse Rate 55 L 03/21/18 22:04 Respiratory Rate 16 03/21/18 22:04 Blood Pressure 174/75 H 03/21/18 22:04 O2 Sat by Pulse Oximetry (%) 98 03/21/18 22:04 ED Treatment Course - LABORATORY CBC & Chemistry Diagram: 03/21/18 22:45 03/21/18 22:45 Medical Decision Making - Medical Decision Making 03/21/18 22:39 78 yo F with h/o HTN, CAD, Sinus bradycardia, pAF( On Eliquis), COPD, who p/w palpitations. BP 174/75, HR 55, vitals otherwise wnl, AF, A&Ox3. ACS/KS r/o. R/ o PNA. Will assess for cardiac dysarrtyhemia, electolyte abnl, metabolic derangements. Low suspicion pericarditis, CHF, asthma, COPD. No coughing, wheezing, fluid overload. Will reassess. ED Course: CBC, CMP, Cardiac Pr. EKG, CXR 03/21/18 22:43 EKG: Sinus bradycardia with HR 56. Absent SRI, STD. Nml interval durations, and axis. 03/21/18 23:05 03/22/18 01:24 CXR: Unremarkable CBC,CMP: Unremarkable Trop: Neg 03/22/18 01:23 Patient stable and ready for d/c. Advised to f/u with cardiology *DC/Admit/Observation/Transfer Diagnosis at time of Disposition: Heart palpitations - Discharge Dispostion Disposition: HOME Condition at time of disposition: Stable Decision to Admit order: No - Referrals Referrals: ON STAFF,NOT [Primary Care Provider] - Sonu Cox MD [Staff Physician] - - Patient Instructions Printed Discharge Instructions: DI for Arrhythmias Additional Instructions: Please return to the emergency department with any new or worsening symptoms or concerns. Please follow up with your primary care physician within 72 hours. Please follow up with cardiology within 48 hours. Return to ED with chest pain, shortness of breath, or other concerning symptoms. - Post Discharge Activity - Attestations Physician Attestion: 03/21/18 22:41 I attest to the information provided in this note.
[2018-03-21 22:44] VITALS: PULSE 55; TEMP 98.1; BMI 28.3
[2018-03-21 23:08] LABS: BASO % 1.2 % (0-2.0); EOS % 1.9 % (0-4.5); HEMATOCRIT 31.1 % (32.4-45.2); HEMOGLOBIN 10.9 GM/dL (10.7-15.3); LYMPH % 34.3 % (8-40); MCH 35.3 pg (25.7-33.7); MCHC 34.9 g/dl (32.0-36.0); MEAN CELL VOLUME 100.9 fl (80-96); MEAN PLT VOLUME 8.2 fl (7.5-11.1); MONO % 10.1 % (3.8-10.2); NEUT % 52.5 % (42.8-82.8); PLATELET COUNT 189 K/MM3 (134-434); RBC 3.09 M/mm3 (3.60-5.2); RDW 13.3 % (11.6-15.6); WHITE BLOOD COUNT 3.3 K/mm3 (4.0-10.0)
[2018-03-21 23:32] LABS: ALBUMIN 3.4 g/dl (3.4-5.0); ALK PHOS 50 U/L (45-117); ANION GAP 6 MMOL/L (8-16); BILIRUBIN,TOTAL 0.5 mg/dL (0.2-1); BLOOD UREA NITROGEN 12 mg/dL (7-18); CALCIUM 8.6 mg/dL (8.5-10.1); CHLORIDE 102 mmol/L (98-107); CO2 29 mmol/L (21-32); CREATININE 0.9 mg/dL (0.55-1.3); GLUCOSE,RANDOM 89 mg/dL (74-106); SGOT/AST 22 U/L (15-37); SGPT/ALT 19 U/L (13-61); SODIUM 137 mmol/L (136-145); TOT PROT 6.8 g/dl (6.4-8.2)
--- NOTE | 2018-03-21 23:57 | PDOC ---
Attending Attestation - Resident Resident Name: Geo Franco - ED Attending Attestation I have performed the following: I have examined & evaluated the patient, The case was reviewed & discussed with the resident, I agree w/resident's findings & plan, Exceptions are as noted - HPI HPI: 03/21/18 23:57 78 yo female has experienced nine episodes of palpitations today. 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 Plan outpt follow up w her overage shortage and damage clerk
[2018-03-22 02:20] VITALS: BP 147/87
--- NOTE | 2018-03-22 09:55 | EKG ---
Test Reason : Blood Pressure : / mmHG Vent. Rate : 056 BPM Atrial Rate : 056 BPM P-R Int : 158 ms QRS Dur : 088 ms QT Int : 478 ms P-R-T Axes : 032 068 052 degrees QTc Int : 461 ms SINUS BRADYCARDIA MODERATE VOLTAGE CRITERIA FOR LVH, MAY BE NORMAL VARIANT BORDERLINE ECG WHEN COMPARED WITH ECG OF 17-MAR-2018 02:32, NO SIGNIFICANT CHANGE WAS FOUND Confirmed by ASHLEY FERREIRA, KENDALL ([id number]) on 03/22/2018 9:55:06 AM Referred By: Confirmed By:KENDALL RAMIREZ MD
== END 2018-03-22 02:08 | disposition home or self-care (01) ==
LOC: JER 22:04
DX: R00.2 Palpitations (principal); I25.10 Atherosclerotic heart disease of native coronary artery without angina pectoris; I10 Essential (primary) hypertension; I48.0 Paroxysmal atrial fibrillation; Z79.01 Long term (current) use of anticoagulants; R00.1 Bradycardia, unspecified; J44.9 Chronic obstructive pulmonary disease, unspecified; E78.00 Pure hypercholesterolemia, unspecified
CPT/HCPCS: 36415; 71045-TC-FY; 80053; 82550; 84484; 85025; 93005; 93010; 99283-25

== ENCOUNTER 2018-07-03 23:24 | Observation (INO) | payer OTHER ==
[2018-07-03 23:30] VITALS: TEMP 96.3; BMI 16.9
--- NOTE | 2018-07-04 00:19 | PDOC ---
History of Present Illness - General Chief Complaint: Chest Pain Stated Complaint: CHEST PAIN Time Seen by Provider: 07/04/18 00:18 - History of Present Illness Initial Comments: 07/04/18 01:09 The patient is an 78 year old female with a history of HTN, HLD, COPD, Afib on eloquis who presents for evaluation of chest pain, headache, and elevated BP. The patient reports onset of chest pressure with associated pressure like headache earlier today. She noted that her BP was elevated at home despite taking her home medications prompting her presentation to the ED for further evaluation. She otherwise denies fevers, chills, SOB, nausea, vomiting, abdominal pain, numbness, tingling, weakness, or changes with urination or bowel movements. Past History - Past Medical History Allergies/Adverse Reactions: Allergies Allergy/AdvReac Type Severity Reaction Status Date / Time No Known Allergies Allergy Verified 07/03/18 23:30 Home Medications: Ambulatory Orders Cholecalciferol (Vitamin D3) [Vitamin D -] 50,000 unit PO WEEKLY 11/27/15 Nitroglycerin [Nitrostat] 0.4 mg SL PRN PRN 11/27/15 Simvastatin [Zocor -] 20 mg PO HS 09/28/16 Metoprolol Tartrate [Lopressor -] 25 mg PO BID #60 tablet 12/04/16 Amiodarone HCl [Cordarone -] 400 mg PO DAILY 03/21/18 Apixaban [Eliquis -] 2.5 mg PO BID 03/21/18 Hydrochlorothiazide [Hctz -] 12.5 mg PO DAILY 03/21/18 Olmesartan Medoxomil [Benicar (Nf)] 20 mg PO DAILY 03/21/18 Anemia: No Asthma: No Cancer: No Cardiac Disorders: Yes CVA: No COPD: Yes CHF: No Dementia: No Diabetes: No GI Disorders: No Disorders: No HTN: Yes Hypercholesterolemia: Yes Liver Disease: No Seizures: No Thyroid Disease: No - Surgical History Abdominal Surgery: No Appendectomy: No Cardiac Surgery: No Cholecystectomy: No Lung Surgery: No Neurologic Surgery: No Orthopedic Surgery: No - Immunization History Td Vaccination: Yes TDAP Vaccination: Yes Immunization Up to Date: Yes - Suicide/Smoking/Psychosocial Hx Smoking Status: No Smoking History: Never smoked Have you smoked in the past 12 months: No Number of Cigarettes Smoked Daily: 0 Information on smoking cessation initiated: No Hx Alcohol Use: No Drug/Substance Use Hx: No Substance Use Type: None Hx Substance Use Treatment: No Review of Systems - Review of Systems Comments:: 07/04/18 01:11 Constitutional: No fevers, chills, fatigue, malaise HEENT: No Rhinorrhea, nasal congestion, visual changes Cardiovascular: Chest pain. No syncope, palpitations, lightheadedness Respiratory: No Cough, SOB, Hemoptysis, Gastrointestinal: No Abdominal pain, Nausea, Vomiting, Constipation, Diarrhea, Melena Genitourinary: No Dysuria, Frequency, Urgency, Hesitancy, Hematuria, Flank pain Musculoskeletal: No Myalgia, arthralgia Skin: No rashes, itching, bruising, pallor Neurologic: Headache. No Dizziness, Numbness, Weakness, or Tingling Psychiatric: No Hallucinations. No SI or HI *Physical Exam - Vital Signs Last Vital Signs Temp Pulse Resp BP Pulse Ox 96.3 F L 72 17 222/71 H 100 07/03/18 23:25 07/03/18 23:25 07/03/18 23:25 07/03/18 23:25 07/03/18 23:25 - Physical Exam Comments: 07/04/18 01:13 General Appearance: Nourished. No Apparent Distress HEENT: EOMI, ZAINA. No Pharyngeal Erythema, Tonsillar Exudate, Tonsillar Erythema Neck: No Cervical Lymphadenopathy Respiratory/Chest: Lungs Clear, Normal Breath Sounds. No Crackles, Rales, Rhonchi, Wheezing Cardiovascular: Regular Rhythm, Regular Rate. No Murmur, Gallops, Rubs Gastrointestinal/Abdominal: Normal Bowel Sounds, Soft. No Guarding, Rebound, Tenderness Musculoskeletal: No CVA Tenderness Extremity: Normal Capillary Refill Integumentary: Normal Color, Dry, Warm Neurologic: electric power superintendent II-XII NML intact, Fully Oriented, Alert, Normal Mood/Affect, Normal Response, Motor Strength 5/5. Normal Finger to Nose and Heel to [place] Heart Score/ECG Review #1 ECG reviewed & interpreted by me at: 01:13 07/04/18 01:13 Normal Sinus Rhythm Prolonged QT No Acute ST elevations or depressions HR 66 QRS 92 QTc 488 ED Treatment Course - LABORATORY CBC & Chemistry Diagram: 07/04/18 01:05 07/04/18 01:05 Medical Decision Making - Medical Decision Making 07/04/18 01:15 The patient is an 78 year old female with a history of HTN, HLD, COPD, Afib on eloquis who presents for evaluation of chest pain, headache, and elevated BP. Differential includes but is not limited to: ACS, Intracranial process, Infectious, Metabolic Derangement. Given the patient's history and physical exam, we will obtain a cbc, cmp, troponin, ekg, chest plain film, head CT to evaluate further. The patient's BP has improved in the main ED to 170/74. We will continue to monitor and reassess while here in the ED. 07/04/18 04:41 CBC, cmp, troponin are unremarkable. Chest plain film is unremarkable. Head CT is unremarkable as preliminarily read by our outside sales consultant radiologist. Given the patient's cardiac risk factors, we believe she requires admission for further monitoring. We discussed the case with the admitting team who accepted the patient for admission. *DC/Admit/Observation/Transfer Diagnosis at time of Disposition: Chest pain Qualifiers: Chest pain type: unspecified Qualified Code(s): R07.9 - Chest pain, unspecified HTN (hypertension) Qualifiers: Hypertension type: unspecified Qualified Code(s): I10 - Essential (primary) hypertension - Discharge Dispostion Condition at time of disposition: Stable Decision to Admit order: Yes - Referrals - Patient Instructions - Post Discharge Activity
[2018-07-04 01:17] LABS: BASO % 0.9 % (0-2.0); EOS % 1.1 % (0-4.5); HEMATOCRIT 38.2 % (32.4-45.2); HEMOGLOBIN 12.8 GM/dL (10.7-15.3); LYMPH % 20.1 % (8-40); MCH 34.5 pg (25.7-33.7); MCHC 33.6 g/dl (32.0-36.0); MEAN CELL VOLUME 102.6 fl (80-96); MEAN PLT VOLUME 8.7 fl (7.5-11.1); MONO % 8.3 % (3.8-10.2); NEUT % 69.6 % (42.8-82.8); PLATELET COUNT 183 K/MM3 (134-434); RBC 3.73 M/mm3 (3.60-5.2); RDW 13.2 % (11.6-15.6); WHITE BLOOD COUNT 4.5 K/mm3 (4.0-10.0)
[2018-07-04 02:00] LABS: ALK PHOS 50 U/L (45-117); ANION GAP 4 MMOL/L (8-16); BILIRUBIN,TOTAL 0.5 mg/dL (0.2-1); BLOOD UREA NITROGEN 17 mg/dL (7-18); CALCIUM 9.1 mg/dL (8.5-10.1); CHLORIDE 102 mmol/L (98-107); CO2 30 mmol/L (21-32); CREATININE 0.9 mg/dL (0.55-1.3); GLUCOSE,RANDOM 97 mg/dL (74-106); POTASSIUM 4.3 mmol/L (3.5-5.1); SGOT/AST 40 U/L (15-37); SGPT/ALT 34 U/L (13-61); SODIUM 136 mmol/L (136-145)
--- NOTE | 2018-07-04 02:19 | PDOC ---
Documentation entered by Mj Talamantes SCRIBE, acting as scribe for Deisi Ramirez DO. Deisi Ramirez DO: This documentation has been prepared by the Vinita hammond Matthew, SCRIBE, under my direction and personally reviewed by me in its entirety. I confirm that the documentation accurately reflects all work, treatment, procedures, and medical decision making performed by me. Attending Attestation - Resident Resident Name: Vinh Joshua - HPI HPI: 07/04/18 01:07 Patient is an 78 year old female with a significant past medical history of CAD , HTN, HLD, Asthma, COPD, who presents to the ED with complaints of chest pain that began earlier today. Patient reports experiencing chest pain that she states is a pressure like pain that does not radiate. She reports experiencing associated symptoms of elevated blood pressure and head pain. Patient reports coming to the ED for further evaluation after becoming worried about the chest pain due to her past history of Afib. Denies chest pain, Sob. Denies nausea, vomiting. Denies fevers, chills. Denies constipation, diarrhea. Denies contact with sick individuals, out of state travellings. Denies any other symptoms. Allergies: NKDA Social history: No smoking. No alcohol. No illicit drugs. Surgical history: None PMD: Not on staff. - Physicial Exam PE: 07/04/18 01:07 Agree with residents Physical Exam. - Medical Decision Making 07/04/18 02:09 78-year-old female with a history of A. fib currently on anticoagulation complaining of chest pain headache and elevated blood pressures CT scan of the brain showed no acute abnormality Chest x-ray shows no acute infiltrate Patient is currently in a sinus rhythm, chest pain has been relieved Markedly elevated systolic blood pressure on arrival has improved on its own Due to patient's age and chest pain while in the emergency department she will be held for observation on medical service
--- NOTE | 2018-07-04 02:44 | PN ---
Teaching Attending Note Name of Resident: Vinh Holloway ATTENDING PHYSICIAN STATEMENT I saw and evaluated the patient. I reviewed the resident's note and discussed the case with the resident. I agree with the resident's findings and plan as documented. SUBJECTIVE: Seen and examined; please refer to resident note for further historical information. Briefly, she presents with a 1 day history of chest pain and headache (no red flag signs) and she noted that she had elevated BP at home. Pressures 174/75 in triage, 200s in the ER and corrected back to 170s without any intervention. Labs were unremarkable. NSR on EKG. Dr. Hameed consulted by ER ; appreciate expert opinion. No prior stress tests, last echo 07/2016. Noted to be chest pain free when we assessed her. She did take all her PM medications today and endorses compliance at home. Headache is resolved. She will be placed on telemetry with a cardiology consultation. 10 sys ROS done and negative aside from PMH PMH, PSH, FH, SH reviewed Home Medications Medication Instructions Recorded Cholecalciferol (Vitamin D3) 50,000 unit PO WEEKLY 11/27/15 [Vitamin D -] Nitroglycerin [Nitrostat] 0.4 mg SL PRN PRN 11/27/15 Simvastatin [Zocor -] 20 mg PO HS 09/28/16 Metoprolol Tartrate [Lopressor -] 25 mg PO BID #60 tablet 12/04/16 Amiodarone HCl [Cordarone -] 400 mg PO DAILY 03/21/18 Apixaban [Eliquis -] 2.5 mg PO BID 03/21/18 Hydrochlorothiazide [Hctz -] 12.5 mg PO DAILY 03/21/18 Olmesartan Medoxomil [Benicar (Nf)] 20 mg PO DAILY 03/21/18 OBJECTIVE: VS, labs, imaging reviewed NAD, AAO, resting comfortably in bed NC AT EOMI PERRLA RRR s1/2 no mgr Lungs CTAB, w/ sym exp NT ND +BS CN2-12 wnl, no fnd Normal mood, appropriate behavior EKG reviewed Echo pending Telemetry ordered CXR reviewed; NAD and awaiting final report CT head reviewed; final report pending ASSESSMENT AND PLAN: Presents with chest pain and headache found to be hypertensive (170sx2 with ? reading off the cuff in the 200s that resolved spontaneously). 1) Chest Pain in Adult -Place on telemetry and trend troponin (first one was negative). CV was consulted by the ER; appreciate expert opinion. -Would like to r/o ACS but will consider other diagnosis on ddx, especially given elevated pressure, etc. Will defer further diagnostics and treatment to CV -Check echo to r/o any wmas. -Prior echo, stress reviewed. 2) Hypertensive urgency vs. emergency -Her HARRIS, CP, etc. could be from this issue. All presenting sx have resolved, negative troponin, etc. -BP 170s; this has been the trend. The 1 value documented off the cuff in the ER in the 200s was not reproducible and resolved spontaneously. Would like to keep <160mmHg when inpatient. Will continue home meds; if BP still elevated can give a PRN dose of hydralazine. -Reconcile and continue home medications; she is on olmesartan 20, lopressor, and HCTZ 12.5 3) Headache -CT head negative and symptoms resolved; will continue to monitor and give PRN APAP. Likely could be related to pressure. If recurring, etc. can consider OP followup, etc. 4) P-Afib on Eliquis -EKG reviewed; not acute issue. Continue amio, eliquis, lopressor. 5) HLD -Continue home Zocor 6) Hx CAD -Noted; negative MIBI 2015 7) Hx COPD -Noted in prior encounters; no current exacerbation. Full Code
[2018-07-04] MEDS ORDERED: NITROGLYCERIN SUBLINGUAL 1/150 0.4 MG TAB SL PRN (02:47)
[2018-07-04] MEDS ORDERED: hydrALAZINE HCL 20 MG/ML VIAL IVPUSH ONE (02:49)
--- NOTE | 2018-07-04 02:58 | HP ---
CHIEF COMPLAINT: CP, HARRIS, HTN PCP: Larissa Hameed HISTORY OF PRESENT ILLNESS: Patient is an 78 y/o F w/ PMHx HTN, HLD, COPD, Afib on Eliquis, p/w 1 day h/o pressure-like CP, pressure-like HARRIS, elevated BP noted on home BP monitor despite compliance with all home medications including 3 anti-hypertensive agents. Blood pressure elevation in this setting prompted ED visit. On presentation afebrile, labile HR ranging 55-72, initial BP 174/75, then 222/71, then 170/74 in the absence of any intervention. Labs show mild macrocytic anemia , chemistry wnl, negative troponin. EKG NSR w/ QTc 488. HCT negative. Most recent echocardiogram 07/2016 was grossly normal. No prior record of a stress test. Pain had resolved by time of encounter. Recent Travel: PAST MEDICAL HISTORY: As per [facility] PAST SURGICAL HISTORY: None Social History: Smoking: Alcohol: Drugs: Family History: Allergies No Known Allergies Allergy (Verified 07/03/18 23:30) HOME MEDICATIONS: Home Medications Medication Instructions Recorded Cholecalciferol (Vitamin D3) 50,000 unit PO WEEKLY 11/27/15 [Vitamin D -] Nitroglycerin [Nitrostat] 0.4 mg SL PRN PRN 11/27/15 Simvastatin [Zocor -] 20 mg PO HS 09/28/16 Metoprolol Tartrate [Lopressor -] 25 mg PO BID #60 tablet 12/04/16 Amiodarone HCl [Cordarone -] 400 mg PO DAILY 03/21/18 Apixaban [Eliquis -] 2.5 mg PO BID 03/21/18 Hydrochlorothiazide [Hctz -] 12.5 mg PO DAILY 03/21/18 Olmesartan Medoxomil [Benicar (Nf)] 20 mg PO DAILY 03/21/18 REVIEW OF SYSTEMS As per [facility] PHYSICAL EXAMINATION Vital Signs - 24 hr 07/03/18 23:25 Temperature 96.3 F L Pulse Rate 72 Respiratory 17 Rate Blood Pressure 222/71 H O2 Sat by Pulse 100 Oximetry (%) GENERAL: A&Ox3, NAD HEENT: NC/AT, PERRLA, EOMI, MMM NECK: Normal range of motion, supple without lymphadenopathy, JVD, or masses. LUNGS: CTA b/l HEART: RRR no m/r/g ABDOMEN: +bs, soft, NT, ND UPPER EXTREMITIES: 2+ pulses, warm, well-perfused. No cyanosis. No clubbing. No peripheral edema. LOWER EXTREMITIES: 2+ pulses, warm, well-perfused. No calf tenderness. No peripheral edema. 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 Good eye contact. Appropriate mood and affect. SKIN: Warm, dry, normal turgor, no rashes or lesions noted, normal capillary refill. Laboratory Results - last 24 hr 07/04/18 07/04/18 01:05 01:05 WBC 4.5 RBC 3.73 Hgb 12.8 Hct 38.2 D MCV 102.6 H MCH 34.5 H MCHC 33.6 RDW 13.2 Plt Count 183 MPV 8.7 Absolute Neuts (auto) 3.1 Neutrophils % 69.6 D Lymphocytes % 20.1 D Monocytes % 8.3 Eosinophils % 1.1 Basophils % 0.9 Nucleated RBC % 0 Sodium 136 Potassium 4.3 Chloride 102 Carbon Dioxide 30 Anion Gap 4 L BUN 17 Creatinine 0.9 Creat Clearance w eGFR 60.24 Random Glucose 97 Calcium 9.1 Total Bilirubin 0.5 AST 40 H ALT 34 Alkaline Phosphatase 50 Creatine Kinase 113 Troponin I < 0.02 Total Protein 8.0 Albumin 4.0 ASSESSMENT/PLAN: 78 y/o F w/ PMHx HTN, HLD, COPD, Afib on Eliquis, p/w 1 day h/o pressure-like CP , pressure-like HARRIS, elevated BP #A -negative troponin -benign EKG -negative HCT -BP control inadequate on home regimen -macrocytic anemia #P -cardiology consulted (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 - New Patient This patient is new to me today: Yes Date on this admission: 07/04/18 - Critical Care Critical Care patient: No
[2018-07-04] MEDS ORDERED: CHOLECALCIFEROL (VITAMIN D3) 400 UNIT TABLET (FP) PO SCH (03:00)
[2018-07-04] MEDS: VALSARTAN 160 MG TABLET (UD) PO SCH ×2 (09:43→11:07)
[2018-07-04] MEDS: AMIODARONE HCL 200 MG TABLET (FP) PO SCH ×2 (09:43→11:07)
[2018-07-04] MEDS: APIXABAN 2.5 MG TABLET PO SCH ×2 (09:43→11:06)
[2018-07-04] MEDS: METOPROLOL TARTRATE 25 MG TABLET (FP) PO SCH ×2 (09:43→11:07)
[2018-07-04] MEDS: HYDROCHLOROTHIAZIDE 12.5 MG CAPSULE (FP) PO SCH ×2 (09:43→11:07)
[2018-07-04 09:53] VITALS: PULSE 51
[2018-07-04] MEDS ORDERED: ENOXAPARIN NA (PORCINE) 40 MG/0.4 ML DISP.SYRIN SQ SCH (10:00)
--- NOTE | 2018-07-04 11:27 | CON.CARD ---
Consult Consult Specialty:: Cardiology Referred by:: ER Reason for Consultation:: Cardiac evaluation - History of Present Illness Chief Complaint: Hypertensive urgency History of Present Illness: Patient is an 78 year old [place] female with underlying history of HTN, hypercholesterolemia, CAD (non-obstructive), COPD and PAF ([id number] score of 5) on DOAC/Eliquis history of synchronized cardioversions, presents to [facility] with elevated BP>200 systolic. She complained of epigastric discomfort during the elevation up to 250 mmHg systolic when she measured at home. Episode of hypertension occurred on Tuesday and then again last night. Currently, her BP has decreased to 110/50 mmHg and she appears comfortable. She denies chest pain , SOB or palpitations. She denies paroxysmal nocturnal dyspnea or orthopnea. She denies fever or chills. She denies headache or lightheadedness this morning , although she did complain of headache of lightheadedness while her BP was elevated. She states that she did not take her BP meds everyday since her BP would sometimes go too low. - History Source History Provided By: Patient, Medical Record Limitations to Obtaining History: No Limitations - Past Medical History Cardio/Vascular: Yes: AFIB, CAD, HTN, Hyperlipdemia Pulmonary: Yes: COPD Renal/: Yes: Renal Inusuff - Alcohol/Substance Use Hx Alcohol Use: No History of Substance Use: reports: None - Smoking History Smoking history: Never smoked Have you smoked in the past 12 months: No Aproximately how many cigarettes per day: 0 Home Medications - Allergies Allergies/Adverse Reactions: Allergies Allergy/AdvReac Type Severity Reaction Status Date / Time No Known Allergies Allergy Verified 07/03/18 23:30 - Home Medications Home Medications: Ambulatory Orders Cholecalciferol (Vitamin D3) [Vitamin D -] 50,000 unit PO WEEKLY 11/27/15 Nitroglycerin [Nitrostat] 0.4 mg SL PRN PRN 11/27/15 Simvastatin [Zocor -] 20 mg PO HS 09/28/16 Metoprolol Tartrate [Lopressor -] 25 mg PO BID #60 tablet 12/04/16 Amiodarone HCl [Cordarone -] 400 mg PO DAILY 03/21/18 Apixaban [Eliquis -] 2.5 mg PO BID 03/21/18 Hydrochlorothiazide [Hctz -] 12.5 mg PO DAILY 03/21/18 Olmesartan Medoxomil [Benicar (Nf)] 20 mg PO DAILY 03/21/18 Review of Systems - Review of Systems Constitutional: denies: Chills, Fever Cardiovascular: reports: Chest Pain, Palpitations. denies: Shortness of Breath Respiratory: denies: Cough, Hemoptysis, Orthopnea, PND, SOB, SOB on Exertion Gastrointestinal: denies: Abdominal Pain, Constipation, Diarrhea, Melena, Nausea , Rectal Bleeding, Vomiting Musculoskeletal: reports: Joint Pain. denies: Back Pain Neurological: reports: Dizziness, Headache. denies: Seizure, Syncope Vital Signs: Vital Signs Temperature 96.3 F L 07/03/18 23:25 Pulse Rate 51 L 07/04/18 09:52 Respiratory Rate 17 07/03/18 23:25 Blood Pressure 122/55 L 07/04/18 09:52 O2 Sat by Pulse Oximetry (%) 100 07/04/18 09:52 Eyes: Yes: PERRL HENT: Yes: Atraumatic Neck: Yes: Supple Respiratory: Yes: CTA Bilaterally Gastrointestinal: Yes: Normal Bowel Sounds, Soft. No: Tenderness Cardiovascular: Yes: Regular Rate and Rhythm JVD: No Carotid Bruit: No PMI: Non-Displaced Heart Sounds: Yes: S1, S2. No: Gallop Edema: No - Other Data Labs, Other Data: CBC, BMP 07/04/18 01:05 07/04/18 01:05 Troponin, BNP 07/04/18 01:05 Troponin I < 0.02 Sinus rhythm Imaging - Results Chest X-ray: Report Reviewed (Unremarkable) Cat Scan: Report Reviewed (Head CT unremarkable) EKG: Report Reviewed Problem List - Problems (1) HTN (hypertension) Code(s): I10 - ESSENTIAL (PRIMARY) HYPERTENSION Qualifiers: Hypertension type: unspecified Qualified Code(s): I10 - Essential (primary ) hypertension (2) Atypical chest pain Code(s): R07.89 - OTHER CHEST PAIN (3) COPD without exacerbation Code(s): J44.9 - CHRONIC OBSTRUCTIVE PULMONARY DISEASE, UNSPECIFIED (4) Paroxysmal atrial fibrillation Code(s): I48.0 - PAROXYSMAL ATRIAL FIBRILLATION (5) CAD (coronary artery disease) Code(s): I25.10 - ATHSCL HEART DISEASE OF [place] CORONARY ARTERY W/O ANG PCTRS Qualifiers: Coronary Disease-Associated Artery/Lesion type: [place] artery [place] vs. transplanted heart: [place] heart Associated angina: without angina Qualified Code(s): I25.10 - Atherosclerotic heart disease of [place] coronary artery without angina pectoris (6) HLD (hyperlipidemia) Code(s): E78.5 - HYPERLIPIDEMIA, UNSPECIFIED Qualifiers: Hyperlipidemia type: pure hypercholesterolemia Qualified Code(s): E78.00 - Pure hypercholesterolemia, unspecified (7) Hypertensive urgency Code(s): I10 - ESSENTIAL (PRIMARY) HYPERTENSION Assessment/Plan 1. Post hypertensive urgency now normalized 2. CAD, angina pectoris 3. Hypercholesterolemia 4. PAF currently in sinus rhythm [id number] score of 5 on DOAC 5. COPD PLAN: 1. Continue Eliquis 2.5 mg BID and Amiodarone 200 mg QD 2. Continue Metoprolol Tartrate 25 mg BID 3. Recommend to resume Olmesartan 20 mg QD or equivalent if not available. She may resume her medications 4. She may be discharged home and will follow up in office 1-2 weeks Further plans are to follow Elio Hameed MD
--- NOTE | 2018-07-04 12:07 | PN ---
Teaching Attending Note Name of Resident: Jhon Jin ATTENDING PHYSICIAN STATEMENT I saw and evaluated the patient. I reviewed the resident's note and discussed the case with the resident. I agree with the resident's findings and plan as documented. SUBJECTIVE:asymptomatic. denies CP, SOB, fever, chills, N/V/C/D states she is compliant with medications OBJECTIVE: Last Vital Signs Temp Pulse Resp BP Pulse Ox 96.3 F L 51 L 17 122/55 L 100 07/03/18 23:25 07/04/18 09:52 07/03/18 23:25 07/04/18 09:52 07/04/18 09:52 General NAD CV S1 S2 irregular +murmur Lungs CTA B/L no wheezing/rales/rhonchi abdomen soft NT/ND ASSESSMENT AND PLAN: 78yo F with PMH afib on eliquis, dyslipidemia, CAD s/p PCI in 2015 and COPD presented to with HARRIS and CP and found to have elevated BP 1. HTN emergency- initial SBP 200's however then on repeat reading is 170 without medications. received hydralazine 10mg IVP for SBP 170 and now BP is controlled. pt is no longer having any symptoms. trop neg x 1. cardio consulted. if BP remains controlled and cardio agrees with outpatient monitoring can likely d/c home later today
--- NOTE | 2018-07-04 12:43 | DS ---
Physical Exam: SUBJECTIVE: Patient seen and examined OBJECTIVE: Vital Signs Period Temp Pulse Resp BP Sys/Berg Pulse Ox Last 24 Hr 96.3 F 51-72 17 122-222/55-71 100-100 PHYSICAL EXAM GENERAL: The patient is awake, alert, and fully oriented, in no acute distress. HEAD: Normal with no signs of trauma. EYES: PERRL, extraocular movements intact, sclera anicteric, conjunctiva clear. ENT: Ears normal, nares patent, oropharynx clear without exudates, moist mucous membranes. NECK: Trachea midline, full range of motion, supple. LUNGS: Breath sounds equal, clear to auscultation bilaterally, no wheezes, no crackles, no accessory muscle use. HEART: Regular rate and rhythm, S1, S2 without murmur, rub or gallop. ABDOMEN: Soft, nontender, nondistended, normoactive bowel sounds, no guarding, no rebound, no hepatosplenomegaly, no masses. EXTREMITIES: 2+ pulses, warm, well-perfused, no edema. NEUROLOGICAL: Cranial nerves II through XII grossly intact. Normal speech, gait not observed. PSYCH: Normal mood, normal affect. SKIN: Warm, dry, normal turgor, no rashes or lesions noted. LABS Laboratory Results - last 24 hr 07/04/18 07/04/18 01:05 01:05 WBC 4.5 RBC 3.73 Hgb 12.8 Hct 38.2 D MCV 102.6 H MCH 34.5 H MCHC 33.6 RDW 13.2 Plt Count 183 MPV 8.7 Absolute Neuts (auto) 3.1 Neutrophils % 69.6 D Lymphocytes % 20.1 D Monocytes % 8.3 Eosinophils % 1.1 Basophils % 0.9 Nucleated RBC % 0 Sodium 136 Potassium 4.3 Chloride 102 Carbon Dioxide 30 Anion Gap 4 L BUN 17 Creatinine 0.9 Creat Clearance w eGFR 60.24 Random Glucose 97 Calcium 9.1 Total Bilirubin 0.5 AST 40 H ALT 34 Alkaline Phosphatase 50 Creatine Kinase 113 Troponin I < 0.02 Total Protein 8.0 Albumin 4.0 HOSPITAL COURSE: Date of Admission:07/04/18 Date of Discharge: 07/04/18 Discharge Summary Reason For Visit: CHEST PAIN,HYPERTENSION Current Active Problems Chest pain (Acute) HTN (hypertension) (Chronic) Condition: Improved - Instructions Diet, Activity, Other Instructions: You came in for Hypertensive Emergency We gave you medications to help control your blood pressure. We evaluated you and did not find anything concerning on EKG, cardiac enzymes or Head CT. Please resume your medications as they were prescribed. Please follow up with your human resources leader, Dr. Hameed, within 1-2 weeks. Pleas return to the ED if you are having high BP with headache, nausea vomiting , acute changes in vision or chest pain. Referrals: Elio Hameed MD [Staff Physician] - 1 Week Disposition: HOME - Home Medications Comprehensive Discharge Medication List: Ambulatory Orders Cholecalciferol (Vitamin D3) [Vitamin D -] 50,000 unit PO WEEKLY 11/27/15 Nitroglycerin [Nitrostat] 0.4 mg SL PRN PRN 11/27/15 Simvastatin [Zocor -] 20 mg PO HS 09/28/16 Metoprolol Tartrate [Lopressor -] 25 mg PO BID #60 tablet 12/04/16 Amiodarone HCl [Cordarone -] 400 mg PO DAILY 03/21/18 Apixaban [Eliquis -] 2.5 mg PO BID 03/21/18 Hydrochlorothiazide [Hctz -] 12.5 mg PO DAILY 03/21/18 Olmesartan Medoxomil [Benicar -] 20 mg PO DAILY 03/21/18
[2018-07-04 12:56] VITALS: BP 131/71
--- NOTE | 2018-07-04 13:09 | ECHO ---
Version: 1 Name: MITCH JACKSON Exam: Adult Echocardiogram Study Date: 07/04/2018, 10:07 AM Age: 78 Years MMode/2D Measurements & Calculations IVSd: 1.14 cm LVIDs: 2.14 cm LVIDd: 4.0 cm LVPWd: 0.89 cm LAV (MOD-bp): 29.9 ml LVOT diam: 1.97 cm Ao root diam: 2.6 cm LA dimension: 3.1 cm Doppler Measurements & Calculations MV E max harshal: 66.9 cm/sec Med E/e': 9.8 MV A max harshal: 90.2 cm/sec Med Peak E' Harshal: 6.9 cm/sec MV E/A: 0.74 Lat E/e': 10.6 Lat Peak E' Harshal: 6.3 cm/sec MR max P.9 mmHg Ao max P.5 mmHg Ao V2 max: 176.5 cm/sec TR max harshal: 167.0 cm/sec TR max P.1 mmHg Left Ventricle The left ventricular size, thickness and function are normal. Right Ventricle The right ventricle is normal in size and function. Atria Normal left and right atrial size and function. Mitral Valve The mitral valve is grossly normal. There is trace mitral regurgitation. Tricuspid Valve The tricuspid valve is normal. There is trace tricuspid regurgitation. Aortic Valve The aortic valve is normal in structure and function. Pulmonic Valve The pulmonic valve is normal in structure and function. Great Vessels The aortic root is normal size. Pericardium/Pleura There is no pericardial effusion. Summary Statements The left ventricular size, thickness and function are normal The right ventricle is normal in size and function. Normal left and right atrial size and function. The mitral valve is grossly normal. There is trace mitral regurgitation. The aortic valve is normal in structure and function. EF 73 - 70% MD Vinh Sultana 07/04/2018, 12:08 PM Ordering Physician: MIRANDA VAZQUEZ Performed By: Perri Singer
--- NOTE | 2018-07-04 17:16 | EKG ---
Test Reason : Blood Pressure : / mmHG Vent. Rate : 066 BPM Atrial Rate : 066 BPM P-R Int : 168 ms QRS Dur : 092 ms QT Int : 466 ms P-R-T Axes : 064 066 051 degrees QTc Int : 488 ms POOR DATA QUALITY, INTERPRETATION MAY BE ADVERSELY AFFECTED NORMAL SINUS RHYTHM MINIMAL VOLTAGE CRITERIA FOR LVH, MAY BE NORMAL VARIANT NONSPECIFIC ST ABNORMALITY PROLONGED QT ABNORMAL ECG WHEN COMPARED WITH ECG OF 21-MAR-2018 22:25, NO SIGNIFICANT CHANGE WAS FOUND Confirmed by MD Rd, Vinh ([id number]) on 07/04/2018 5:15:33 PM Referred By: Confirmed By:Vinh Sultana MD
[2018-07-04] MEDS ORDERED: ATORVASTATIN CA 10 MG TABLET (FP) PO SCH (22:00)
== END 2018-07-04 13:30 | disposition home or self-care (01) ==
LOC: JER 23:24 → JERBED 07-04 02:10
PROVIDERS: ADMIT Internal Medicine; ATTEND Internal Medicine
PROC: 3E033GC Introduction of Other Therapeutic Substance into Peripheral Vein, Percutaneous Approach (ICD-10-PCS; principal; 2018-07-04)
DX: R07.89 Other chest pain (principal); I16.0 Hypertensive urgency; I10 Essential (primary) hypertension; E78.5 Hyperlipidemia, unspecified; J44.9 Chronic obstructive pulmonary disease, unspecified; I48.0 Paroxysmal atrial fibrillation; I25.10 Atherosclerotic heart disease of native coronary artery without angina pectoris; Z79.01 Long term (current) use of anticoagulants
CPT/HCPCS: 36415; 70450-TC; 71045-TC-FY; 80053; 82550; 84484; 85025; 93005; 93010; 93306-TC; 96374; 99284-25; G0378

== ENCOUNTER 2018-07-16 21:37 | Observation (INO) | payer OTHER ==
[2018-07-16] MEDS ORDERED: NITROGLYCERIN SUBLINGUAL 1/150 0.4 MG TAB SL ONE (22:29)
[2018-07-16] MEDS ORDERED: ACETAMINOPHEN 500 MG TABLET (FP) PO ONE (22:29)
[2018-07-16] MEDS ORDERED: ASPIRIN 81 MG CHEWABLE TABLETS PO ONE (22:30)
[2018-07-16] MEDS ORDERED: ACETAMINOPHEN 325 MG TABLET (FP) ONE (22:32)
[2018-07-16] MEDS ORDERED: ASPIRIN 81 MG CHEWABLE TABLETS ONE (22:32)
[2018-07-16] MEDS ORDERED: NITROGLYCERIN SUBLINGUAL 1/150 0.4 MG TAB ONE (22:32)
--- NOTE | 2018-07-16 22:32 | PDOC ---
History of Present Illness - General Chief Complaint: Chest Pain Stated Complaint: BLOOD PRESSURE PROBLEM Time Seen by Provider: 07/16/18 21:57 History Source: Patient Exam Limitations: Language Barrier (phone int used) - History of Present Illness Initial Comments: 07/16/18 22:33 Patient is an 78M with history of HTN, afib on eliquis, CAD, COPD here today with chest pain that onset today. Patient states that she became concerned because her blood pressure was around 250 systolic. She endorses a headache located all over her head, but states that it's mild and has been going on for the past 3 months. Denies arm, face, leg weakness. Denies fever, chills, nausea , vomiting. Denies leg swelling, prior blood clots, recent travel. Patient states that she has been compliant with her medications. Patient was admitted with similar story in late June. ECHO was normal, had run of HR in 250s. Trops neg. Discharged home with outpatient follow up. PCP: Zari (Cato) Cards: Zari Past History - Past Medical History Allergies/Adverse Reactions: Allergies Allergy/AdvReac Type Severity Reaction Status Date / Time No Known Allergies Allergy Verified 07/03/18 23:30 Home Medications: Ambulatory Orders Cholecalciferol (Vitamin D3) [Vitamin D -] 50,000 unit PO WEEKLY 11/27/15 Nitroglycerin [Nitrostat] 0.4 mg SL PRN PRN 11/27/15 Metoprolol Tartrate [Lopressor -] 25 mg PO BID #60 tablet 12/04/16 Amiodarone HCl [Cordarone -] 400 mg PO DAILY 03/21/18 Apixaban [Eliquis -] 2.5 mg PO BID 03/21/18 Hydrochlorothiazide [Hctz -] 25 mg PO DAILY 03/21/18 Olmesartan Medoxomil [Benicar -] 20 mg PO DAILY 03/21/18 Anemia: No Asthma: No Cancer: No Cardiac Disorders: Yes CVA: No COPD: Yes CHF: No Dementia: No Diabetes: No GI Disorders: No Disorders: No HTN: Yes Hypercholesterolemia: Yes Liver Disease: No Seizures: No Thyroid Disease: No - Surgical History Abdominal Surgery: No Appendectomy: No Cardiac Surgery: No Cholecystectomy: No Lung Surgery: No Neurologic Surgery: No Orthopedic Surgery: No - Immunization History Td Vaccination: Yes TDAP Vaccination: Yes Immunization Up to Date: Yes - Suicide/Smoking/Psychosocial Hx Smoking Status: No Smoking History: Never smoked Have you smoked in the past 12 months: No Number of Cigarettes Smoked Daily: 0 Information on smoking cessation initiated: No Hx Alcohol Use: No Drug/Substance Use Hx: No Substance Use Type: None Hx Substance Use Treatment: No Review of Systems - Review of Systems Able to Perform ROS?: Yes Comments:: 07/16/18 22:44 GENERAL/CONSTITUTIONAL: No fever or chills. No weakness. HEAD, EYES, EARS, NOSE AND THROAT: No change in vision. No sore throat. CARDIOVASCULAR: +chest pain no shortness of breath RESPIRATORY: No cough, wheezing, or hemoptysis. GASTROINTESTINAL: No nausea, vomiting, diarrhea or constipation. GENITOURINARY: No dysuria, frequency, or change in urination. MUSCULOSKELETAL: No joint or muscle swelling or pain. No neck or back pain. SKIN: No rash NEUROLOGIC: +headache, no vertigo, loss of consciousness, or change in strength/ sensation. ENDOCRINE: No increased thirst. No abnormal weight change HEMATOLOGIC/LYMPHATIC: No anemia, easy bleeding, or history of blood clots. ALLERGIC/IMMUNOLOGIC: No hives or skin allergy. *Physical Exam - Vital Signs Last Vital Signs Temp Pulse Resp BP Pulse Ox 97.6 F 62 20 186/68 H 97 07/16/18 21:52 07/16/18 21:52 07/16/18 21:52 07/16/18 21:52 07/16/18 21:52 - Physical Exam Comments: 07/16/18 22:51 GENERAL: Awake, alert, and fully oriented, in no acute distress HEAD: No signs of trauma, normocephalic, atraumatic EYES: PERRLA, EOMI, sclera anicteric, conjunctiva clear ENT: Auricles normal inspection, hearing grossly normal, nares patent, oropharynx clear without exudates. Moist mucosa NECK: Normal ROM, supple, no lymphadenopathy, JVD, or masses LUNGS: No distress, speaks full sentences, clear to auscultation bilaterally HEART: Regular rate and rhythm, normal S1 and S2, no murmurs, rubs or gallops, peripheral pulses normal and equal bilaterally. ABDOMEN: Soft, nontender, normoactive bowel sounds. No guarding, no rebound. No masses EXTREMITIES: Normal inspection, Normal range of motion, no edema. No clubbing or cyanosis. NEUROLOGICAL: Cranial nerves II through XII grossly intact. Normal speech, no focal sensorimotor deficits SKIN: Warm, Dry, normal turgor, no rashes or lesions noted. Heart Score/ECG Review - History History: Slightly suspicious - Electrocardiogram EKG: Normal - Age Age: >/= 65 - Risk Factors Risk Factors Heart Score: Yes Positive family hx of cardiac disease Based on the list above the patient has:: >/=3 risk factors or Hx atherosclerotic disease - Troponin Troponin: </= normal limit - Score Heart Score - Total: 4 ED Treatment Course - LABORATORY CBC & Chemistry Diagram: 07/16/18 22:40 07/16/18 22:40 - RADIOLOGY Radiology Studies Ordered: Category Date Time Status CHEST X-RAY PORTABLE* [RAD] Stat Radiology 07/16/18 22:30 Ordered Medical Decision Making - Medical Decision Making 07/16/18 22:51 Patient is 78F with history of CAD, HTN, afib on eliquis here today with chest pain. Initially hypertensive, now 160 systolic. Vitals otherwise normal. EKG shows normal sinus rhythm with rate of 63. No st elevations/depressions. Normal axis. QTc prolonged to 517. No significant t wave changes. DDx includes, but is not limited to: acs, arrhythmia, chf. PE considered, on eliquis and no risk factors. SAH/Bleed considered, headache not consistent with bleed and normal CT in late June. 07/16/18 23:00 CXR shows increased markings in right lung, stable compared to prior CXR. 07/17/18 05:23 Trop neg. CBC CMP stable. D/w Dr Patton. Admitted for acs r/o, HEART score 4. *DC/Admit/Observation/Transfer Diagnosis at time of Disposition: Chest pain Qualifiers: Chest pain type: unspecified Qualified Code(s): R07.9 - Chest pain, unspecified - Discharge Dispostion Condition at time of disposition: Stable Decision to Admit order: Yes - Referrals - Patient Instructions - Post Discharge Activity
[2018-07-16 22:49] LABS: BASO % 1.1 % (0-2.0); EOS % 0.9 % (0-4.5); HEMATOCRIT 35.6 % (32.4-45.2); LYMPH % 28.7 % (8-40); MCH 34.4 pg (25.7-33.7); MCHC 33.7 g/dl (32.0-36.0); MEAN CELL VOLUME 102.2 fl (80-96); MEAN PLT VOLUME 8.6 fl (7.5-11.1); MONO % 9.1 % (3.8-10.2); NEUT % 60.2 % (42.8-82.8); PLATELET COUNT 166 K/MM3 (134-434); RBC 3.48 M/mm3 (3.60-5.2); WHITE BLOOD COUNT 4.2 K/mm3 (4.0-10.0)
[2018-07-16 23:05] LABS: INR 1.09 (0.83-1.09); PROTHROMBIN TIME (PATIENT) 12.9 SEC (9.7-13.0)
[2018-07-16 23:15] LABS: ALBUMIN 3.7 g/dl (3.4-5.0); ALK PHOS 44 U/L (45-117); ANION GAP 6 MMOL/L (8-16); BILIRUBIN,TOTAL 0.5 mg/dL (0.2-1); BLOOD UREA NITROGEN 19 mg/dL (7-18); CALCIUM 8.7 mg/dL (8.5-10.1); CHLORIDE 101 mmol/L (98-107); CO2 29 mmol/L (21-32); GLUCOSE,RANDOM 97 mg/dL (74-106); MAGNESIUM 1.9 mg/dL (1.8-2.4); POTASSIUM 3.6 mmol/L (3.5-5.1); SGOT/AST 36 U/L (15-37); SGPT/ALT 29 U/L (13-61); SODIUM 136 mmol/L (136-145)
--- NOTE | 2018-07-16 23:45 | PN ---
Teaching Attending Note Name of Resident: Sun Patton ATTENDING PHYSICIAN STATEMENT I saw and evaluated the patient. I reviewed the resident's note and discussed the case with the resident. I agree with the resident's findings and plan as documented. SUBJECTIVE: Patient is an 78 year old woman with a PMH Paroxysmal Afib on Eliquis, synchronized cardio versions, CAD, COPD, asthma, hypertension, and hyperlipidemia who presents to the ER with chest pain since earlier today. The patient states that her chest pain is mid-sternal and pressure-like with palpitations. She has associated high blood pressure since earlier today (high 250s) and a diffuse headache for about 3 months. The patient denies any shortness of breath, history of PE, fever, chills, nausea, vomiting, diarrhea, constipation, urinary symptoms or weakness. Patient says that she took all of her medications today. OBJECTIVE: Alert Vital Signs Period Temp Pulse Resp BP Sys/Berg Pulse Ox Last 24 Hr 97.6 F 56-62 16-20 169-186/65-68 97-98 HEENT: No Jaundice, eye redness or discharge, PERRLA, EOMI. Normocephalic, atraumatic. External ears are normal and hearing is grossly intact. No nasal discharge. Neck: Supple, nontender. No palpable adenopathy or thyromegaly. No JVD Chest: Good effort. Clear to auscultation and percussion. Heart: Regular. No S3, rub or murmur Abdomen: Not distended, soft, nontender and no HSM. No rebound or guarding. Normal bowel sounds. Ext: Peripheral pulses intact. No leg edema. Skin: Warm and dry. No petechiae, rash or ecchymosis. Neuro: Alert. Oriented x3. CN 2-12 grossly intact. Sensation grossly intact in all four extremities and DTR are symmetric. Psych: Appropriate mood and affect. Good insight. Home Medications Medication Instructions Recorded Cholecalciferol (Vitamin D3) 50,000 unit PO WEEKLY 11/27/15 [Vitamin D -] Nitroglycerin [Nitrostat] 0.4 mg SL PRN PRN 11/27/15 Metoprolol Tartrate [Lopressor -] 25 mg PO BID #60 tablet 12/04/16 Amiodarone HCl [Cordarone -] 400 mg PO DAILY 03/21/18 Apixaban [Eliquis -] 2.5 mg PO BID 03/21/18 Hydrochlorothiazide [Hctz -] 25 mg PO DAILY 03/21/18 Olmesartan Medoxomil [Benicar -] 20 mg PO DAILY 03/21/18 Abnormal Lab Results 07/16/18 07/16/18 22:40 22:40 RBC 3.48 L MCV 102.2 H MCH 34.4 H Anion Gap 6 L BUN 19 H Alkaline Phosphatase 44 L ASSESSMENT AND PLAN: 1. Chest pain/Hypertensive urgency - Pain is atypical and may signal the acute effects of uncontrolled hypertension. Patient is now painfree with improvement in her BP in the ER. EKG shows NSR with prolonged QTc and no significant ST-T wave changes. Initial troponin is negative. No acute pathology on CXR. Will admit to telemetry to rule out ACS. Patient was admitted on 07/04/18 for similar complaints - ACS was ruled out and an ECHO showed normal LV function, normal RV function and ejection fraction of 70%. Will continue Eliquis for Afib. 2. Hypertension - Restart outpatient antihypertensive drugs and revise regimen to ensure smooth [id number] good BP control. Nonpharmacologic measures to control hypertension like weight loss, salt restriction and exercise discussed. 3. DVT prophylaxis - On Eliquis for Afib 4. Advance directives - Full code
--- NOTE | 2018-07-17 00:07 | HP ---
CHIEF COMPLAINT: chest pain HISTORY OF PRESENT ILLNESS: Patient is an 78 year old woman with a PMH Paroxysmal Afib (on eliquis), synchronized cardio versions, CAD, COPD, asthma, hypertension, and hyperlipidemia who presents to the ER with chest pain earlier today. She states that her chest pain is mid-sternal and pressure-like with palpitations. She mentioned to the ED residents her BP reads at home have been as high as 250, which she also complained about the last time she was here. She had an ECHO that showed normal LV function, normal RV function and ejection fraction of 70% She was just recently discharged on 07/04 for the same symptoms. The patient currently denies symptoms. She denies any shortness of breath, history of PE, fever, chills, nausea, vomiting, diarrhea, constipation, urinary symptoms or weakness. Patient says that she took all of her medications today. ER course was notable for: (1) 1st tropinin negative (2) no ekg changes PAST MEDICAL HISTORY: per HPI Family History: n/a Allergies No Known Allergies Allergy (Verified 07/03/18 23:30) HOME MEDICATIONS: Home Medications Medication Instructions Recorded Cholecalciferol (Vitamin D3) 50,000 unit PO WEEKLY 11/27/15 [Vitamin D -] Nitroglycerin [Nitrostat] 0.4 mg SL PRN PRN 11/27/15 Metoprolol Tartrate [Lopressor -] 25 mg PO BID #60 tablet 12/04/16 Amiodarone HCl [Cordarone -] 400 mg PO DAILY 03/21/18 Apixaban [Eliquis -] 2.5 mg PO BID 03/21/18 Hydrochlorothiazide [Hctz -] 25 mg PO DAILY 03/21/18 Olmesartan Medoxomil [Benicar -] 20 mg PO DAILY 03/21/18 REVIEW OF SYSTEMS CONSTITUTIONAL: Absent: fever, chills, diaphoresis, generalized weakness, malaise, loss of appetite, weight change HEENT: Absent: rhinorrhea, nasal congestion, throat pain, throat swelling, difficulty swallowing, mouth swelling, ear pain, eye pain, visual changes CARDIOVASCULAR: Absent: chest pain, syncope, palpitations, irregular heart rate, lightheadedness , peripheral edema RESPIRATORY: Absent: cough, shortness of breath, dyspnea with exertion, orthopnea, wheezing, stridor, hemoptysis GASTROINTESTINAL: Absent: abdominal pain, abdominal distension, nausea, vomiting, diarrhea, constipation, melena, hematochezia GENITOURINARY: Absent: dysuria, frequency, urgency, hesitancy, hematuria, flank pain, genital pain MUSCULOSKELETAL: Absent: myalgia, arthralgia, joint swelling, back pain, neck pain SKIN: Absent: rash, itching, pallor HEMATOLOGIC/IMMUNOLOGIC: Absent: easy bleeding, easy bruising, lymphadenopathy, frequent infections ENDOCRINE: Absent: unexplained weight gain, unexplained weight loss, heat intolerance, cold intolerance NEUROLOGIC: Absent: headache, focal weakness or paresthesias, dizziness, unsteady gait, seizure, mental status changes, bladder or bowel incontinence PSYCHIATRIC: Absent: anxiety, depression, suicidal or homicidal ideation, hallucinations. PHYSICAL EXAMINATION Vital Signs - 24 hr 07/16/18 07/16/18 21:52 22:50 Temperature 97.6 F Pulse Rate 62 Pulse Rate [ 56 L Apical] Respiratory 20 16 Rate Blood Pressure 186/68 H Blood Pressure 169/65 [Left Arm] O2 Sat by Pulse 97 98 Oximetry (%) GENERAL: A&Ox3, NAD HEENT: NC/AT, PERRLA, EOMI, MMM NECK: Normal range of motion, supple without lymphadenopathy, JVD, or masses. LUNGS: CTA b/l HEART: RRR no m/r/g ABDOMEN: +bs, soft, NT, ND UPPER EXTREMITIES: 2+ pulses, warm, well-perfused. No cyanosis. No clubbing. No peripheral edema. LOWER EXTREMITIES: 2+ pulses, warm, well-perfused. No calf tenderness. No peripheral edema. NEUROLOGICAL: body builder, motor, sensory systems w/o focal deficit PSYCHIATRIC: Cooperative. Good eye contact. Appropriate mood and affect. SKIN: Warm, dry, normal turgor, no rashes or lesions noted, normal capillary refill. Laboratory Results - last 24 hr 07/16/18 07/16/18 07/16/18 22:40 22:40 22:40 WBC 4.2 RBC 3.48 L Hgb 12.0 Hct 35.6 MCV 102.2 H MCH 34.4 H MCHC 33.7 RDW 13.0 Plt Count 166 MPV 8.6 Absolute Neuts (auto) 2.5 Neutrophils % 60.2 Lymphocytes % 28.7 D Monocytes % 9.1 Eosinophils % 0.9 Basophils % 1.1 Nucleated RBC % 0 PT with INR 12.90 INR 1.09 Sodium 136 Potassium 3.6 Chloride 101 Carbon Dioxide 29 Anion Gap 6 L BUN 19 H Creatinine 1.0 Est GFR (CKD-EPI)AfAm 61.62 Est GFR (CKD-EPI)NonAf 53.17 Random Glucose 97 Calcium 8.7 Magnesium 1.9 Total Bilirubin 0.5 AST 36 ALT 29 Alkaline Phosphatase 44 L Creatine Kinase 145 Troponin I < 0.02 Total Protein 7.0 Albumin 3.7 ASSESSMENT/PLAN: 78yo F with PMH afib on eliquis, dyslipidemia, CAD s/p PCI in 2016 and COPD presented with chest pain. #Chest pain r/o ACS -symptoms resolved -tele monitoring -first trop neg -repeat 2nd set -No EKG changes -consider cardiology consult in AM #HTN -resume home meds -monitor BP #FEN -no iv fluids -monitor -sodium diet #Dvt -cont home eliquis dispo: tele obs Visit type - Emergency Visit Emergency Visit: Yes ED Registration Date: 07/16/18 Care time: The patient presented to the Emergency Department on the above date and was hospitalized for further evaluation of their emergent condition. - New Patient This patient is new to me today: Yes Date on this admission: 07/19/18 - Critical Care Critical Care patient: No
--- NOTE | 2018-07-17 00:14 | PDOC ---
Documentation entered by Jim Marmolejo SCRIBE, acting as scribe for Janie Palacios MD. Janie Palacios MD: This documentation has been prepared by the scribe, Jim Marmolejo SCRIBE, under my direction and personally reviewed by me in its entirety. I confirm that the documentation accurately reflects all work, treatment, procedures, and medical decision making performed by me. Attending Attestation - Resident Resident Name: Philip Morales - ED Attending Attestation I have performed the following: I have examined & evaluated the patient, The case was reviewed & discussed with the resident, I agree w/resident's findings & plan, Exceptions are as noted - HPI HPI: 07/16/18 22:36 The patient is a 78 year old female with a significant past medical history of CAD, COPD, asthma, hypertension, and hyperlipidemia who presents to the emergency department with chest pain since earlier today. The patient states that her chest pain is mid-sternal and pressure-like with palpitations. She endorses associated high blood pressure since earlier today (high 250s) and a diffuse headache for about 3 months. The patient denies any shortness of breath , history of PE, fever, chills, nausea, vomiting, diarrhea, constipation, urinary symptoms or weakness. It is noted , as per the patient, that she took all of her medications today. The patient denies any other complaints. - Physicial Exam PE: 07/17/18 00:10 Petite 78 yo female p/w chest pain head ncat neck no jvd lungs cta b/l cvs [id number] abd flat,nontender no cva tenderness skin warm and dry neuro alert,conversant,moving all extremities psych appropriate - Medical Decision Making 07/16/18 22:08 This 78-year-old Telugu female. Past medical history of hypertension, hypercholesterolemia, coronary artery disease, COPD, and paroxysmal atrial fibrillation , she has a chads score 5, she has been on Eliaquis, history of synchronized cardio versions. -this 07/04/18 she had an echo that showed normal LV function, normal RV function and ejection fraction of 70% Dr. Elio Hameed evaluating this patient, July 04 and wanted to continue Levaquin is 2.5 mg twice a day, amiodarone 200 mg daily, metoprolol titrate 25 mg twice a day and to resume olmesartan 20 mg daily 07/16/18 22:21 -today's ekg is sinus bradycardia @55 bpm,QTc =480ms 07/17/18 00:13 heart score of four with history of heart disease ,admit to tele
[2018-07-17 02:11] VITALS: BMI 17.9
[2018-07-17 07:44] LABS: BASO % 1.1 % (0-2.0); HEMATOCRIT 34.7 % (32.4-45.2); HEMOGLOBIN 11.7 GM/dL (10.7-15.3); LYMPH % 34.1 % (8-40); MCHC 33.9 g/dl (32.0-36.0); MEAN CELL VOLUME 100.5 fl (80-96); MEAN PLT VOLUME 8.5 fl (7.5-11.1); MONO % 7.9 % (3.8-10.2); NEUT % 55.9 % (42.8-82.8); PLATELET COUNT 174 K/MM3 (134-434); RBC 3.45 M/mm3 (3.60-5.2); RDW 13.1 % (11.6-15.6); WHITE BLOOD COUNT 3.3 K/mm3 (4.0-10.0)
--- NOTE | 2018-07-17 07:46 | PN ---
Teaching Attending Note Name of Resident: Karly Eubanks ATTENDING PHYSICIAN STATEMENT I saw and evaluated the patient. I reviewed the resident's note and discussed the case with the resident. I agree with the resident's findings and plan as documented. SUBJECTIVE:Pat feels comfortable denies any Chest pain SOB or Palpittaion OBJECTIVE: Vital Signs Temperature 97.6 F 07/17/18 05:49 Pulse Rate 87 07/17/18 05:49 Respiratory Rate 20 07/17/18 05:49 Blood Pressure 164/80 07/17/18 05:49 O2 Sat by Pulse Oximetry (%) 97 07/17/18 02:00 General: Elderly F comfortable not in distress HEENT:Mm moist, no anemia, PERRLA EOMI NECK:No JVD No Bruit CHEST: CTA B/L CVS: S1S2 IR no m/g/r ABD: No distention, non tender BS + EXT: No edema feet, no calf tenderness MEDICAID BILLING SPECIALIST:AOX3 non focal CBC, BMP 07/17/18 06:30 07/17/18 06:30 EKG: Active Medications Amiodarone HCl (Cordarone -) 400 mg PO DAILY [facility] Last Admin: 07/17/18 09:47 Dose: 400 mg Amlodipine Besylate (Norvasc -) 5 mg PO DAILY [facility] Last Admin: 07/17/18 10:17 Dose: 5 mg Apixaban (Eliquis -) 2.5 mg PO BID [facility] Last Admin: 07/17/18 09:48 Dose: 2.5 mg Atorvastatin Calcium (Lipitor -) 20 mg PO [facility] Cholecalciferol (Vitamin D3 -) 50,000 unit PO Mo [facility] Hydrochlorothiazide (Hctz -) 25 mg PO DAILY [facility] Last Admin: 07/17/18 09:47 Dose: 25 mg Metoprolol Tartrate (Lopressor -) 25 mg PO BID [facility] Last Admin: 07/17/18 09:48 Dose: 25 mg Nitroglycerin (Nitrostat -) 0.4 mg SL PRN PRN PRN Reason: PAIN Valsartan (Diovan -) 160 mg PO DAILY [facility] Last Admin: 07/17/18 09:47 Dose: 160 mg ASSESSMENT AND PLAN:78 year old Italian female with underlying history of HTN, hypercholesterolemia, CAD (non-obstructive), COPD and PAF ([id number] score of 5) on Eliquis history of synchronized cardioversions, recently Dc after treated for uncontrolled HT 07/04 present with Left sided CP CHEST Pain: Patient admitted with similar presentation in the past multiple times, lately BP remained uncontrolled as per Cardiology note non Obstructive CAD no resting pain last NST was in 01/2016, needs optimization of BP Control will recommend adding Amlodipine 5 mg evening , cont Olmesartan am and HCTZ am switch to Metoprolol Xl 50 mg am if patient welt sole layer agrees. HTN: needs optimization of BP Control will recommend adding Amlodipine 5 mg evening , cont Olmesartan am and HCTZ am switch to Metoprolol Xl 50 mg am if patient welt sole layer agrees. PAF: Cpnt amiodatrone at home dose COPD: Resume home meds If cleared by Cardiology can be Dc Home.
[2018-07-17] MEDS ORDERED: NITROGLYCERIN SUBLINGUAL 1/150 0.4 MG TAB SL PRN (07:48)
[2018-07-17 08:02] LABS: ALBUMIN 3.6 g/dl (3.4-5.0); ALK PHOS 44 U/L (45-117); ANION GAP 6 MMOL/L (8-16); BILIRUBIN,TOTAL 0.8 mg/dL (0.2-1); BLOOD UREA NITROGEN 18 mg/dL (7-18); CALCIUM 8.8 mg/dL (8.5-10.1); CHLORIDE 98 mmol/L (98-107); CO2 30 mmol/L (21-32); GLUCOSE,RANDOM 87 mg/dL (74-106); PHOSPHOROUS 4.3 mg/dL (2.5-4.9); POTASSIUM 3.4 mmol/L (3.5-5.1); SGOT/AST 33 U/L (15-37); SGPT/ALT 26 U/L (13-61); SODIUM 135 mmol/L (136-145); TOT PROT 6.6 g/dl (6.4-8.2)
[2018-07-17 08:07] LABS: INR 1.08 (0.83-1.09); PROTHROMBIN TIME (PATIENT) 12.8 SEC (9.7-13.0)
[2018-07-17] MEDS ORDERED: PT OWN MED DRAWER 7, Y5N ONE ×2 (09:02→11:36)
--- NOTE | 2018-07-17 09:06 | PN ---
Physical Exam: SUBJECTIVE: Patient seen and examined OBJECTIVE: Vital Signs Period Temp Pulse Resp BP Sys/Berg Pulse Ox Last 24 Hr 97.3 F-97.6 F 56-87 16-20 164-186/64-80 97-98 GENERAL: The patient is awake, alert, and fully oriented, in no acute distress. HEAD: Normal with no signs of trauma. EYES: PERRL, extraocular movements intact, sclera anicteric, conjunctiva clear. No ptosis. ENT: Ears normal, nares patent, oropharynx clear without exudates, moist mucous membranes. NECK: Trachea midline, full range of motion, supple. LUNGS: Breath sounds equal, clear to auscultation bilaterally, no wheezes, no crackles, no accessory muscle use. HEART: Regular rate and rhythm, S1, S2 without murmur, rub or gallop. ABDOMEN: Soft, nontender, nondistended, normoactive bowel sounds, no guarding, no rebound, no hepatosplenomegaly, no masses. EXTREMITIES: 2+ pulses, warm, well-perfused, no edema. NEUROLOGICAL: Cranial nerves II through XII grossly intact. Normal speech, gait not observed. PSYCH: Normal mood, normal affect. SKIN: Warm, dry, normal turgor, no rashes or lesions noted Laboratory Results - last 24 hr 07/16/18 07/16/18 07/16/18 22:40 22:40 22:40 WBC 4.2 RBC 3.48 L Hgb 12.0 Hct 35.6 MCV 102.2 H MCH 34.4 H MCHC 33.7 RDW 13.0 Plt Count 166 MPV 8.6 Absolute Neuts (auto) 2.5 Neutrophils % 60.2 Lymphocytes % 28.7 D Monocytes % 9.1 Eosinophils % 0.9 Basophils % 1.1 Nucleated RBC % 0 PT with INR 12.90 INR 1.09 Sodium 136 Potassium 3.6 Chloride 101 Carbon Dioxide 29 Anion Gap 6 L BUN 19 H Creatinine 1.0 Est GFR (CKD-EPI)AfAm 61.62 Est GFR (CKD-EPI)NonAf 53.17 Random Glucose 97 Calcium 8.7 Phosphorus Magnesium 1.9 Total Bilirubin 0.5 AST 36 ALT 29 Alkaline Phosphatase 44 L Creatine Kinase 145 Troponin I < 0.02 Total Protein 7.0 Albumin 3.7 07/17/18 07/17/18 07/17/18 06:30 06:30 06:30 WBC 3.3 L RBC 3.45 L Hgb 11.7 Hct 34.7 MCV 100.5 H MCH 34.0 H MCHC 33.9 RDW 13.1 Plt Count 174 MPV 8.5 Absolute Neuts (auto) 1.8 Neutrophils % 55.9 Lymphocytes % 34.1 Monocytes % 7.9 Eosinophils % 1.0 Basophils % 1.1 Nucleated RBC % 0 PT with INR 12.80 INR 1.08 Sodium 135 L Potassium 3.4 L Chloride 98 Carbon Dioxide 30 Anion Gap 6 L BUN 18 Creatinine 1.0 Est GFR (CKD-EPI)AfAm 61.62 Est GFR (CKD-EPI)NonAf 53.17 Random Glucose 87 Calcium 8.8 Phosphorus 4.3 Magnesium 2.0 Total Bilirubin 0.8 AST 33 ALT 26 Alkaline Phosphatase 44 L Creatine Kinase Troponin I < 0.02 Total Protein 6.6 Albumin 3.6 Active Medications Generic Name Dose Route Start Last Admin Trade Name Freq PRN Reason Stop Dose Admin Amiodarone HCl 400 mg 07/17/18 10:00 Cordarone - PO DAILY [facility] Apixaban 2.5 mg 07/17/18 10:00 Eliquis - PO BID [facility] Atorvastatin Calcium 20 mg 07/17/18 22:00 Lipitor - PO HS [facility] Cholecalciferol 50,000 unit 07/17/18 10:00 Vitamin D3 - PO Mo [facility] Hydrochlorothiazide 25 mg 07/17/18 10:00 Hctz - PO DAILY [facility] Potassium Chloride 10 meq in 100 mls @ 100 mls/hr 07/17/18 08:30 Potassium Chloride 10 Meq Premix Ivpb - IVPB 07/17/18 10:29 Q60M [facility] Metoprolol Tartrate 25 mg 07/17/18 10:00 Lopressor - PO BID [facility] Nitroglycerin 0.4 mg 07/17/18 07:48 Nitrostat - SL PRN PRN PAIN Valsartan 160 mg 07/17/18 10:00 Diovan - PO DAILY [facility] ASSESSMENT/PLAN: 78yo F with PMH afib on eliquis, dyslipidemia, CAD s/p PCI in 2016 and COPD presented with chest pain. #Chest pain r/o ACS -symptoms resolved -tele monitoring -first trop neg -repeat 2nd set -No EKG changes -consider cardiology consult in AM #HTN -resume home meds -monitor BP #FEN -no iv fluids -monitor -sodium diet #Dvt -cont home eliquis
[2018-07-17] MEDS: KCL 10 MEQ IVPB 10 MEQ/100 ML INFUS.BAG IVPB SCH ×2 (09:48→11:38)
--- NOTE | 2018-07-17 09:53 | EKG ---
Test Reason : Blood Pressure : / mmHG Vent. Rate : 055 BPM Atrial Rate : 055 BPM P-R Int : 162 ms QRS Dur : 086 ms QT Int : 502 ms P-R-T Axes : 033 070 039 degrees QTc Int : 480 ms SINUS BRADYCARDIA OTHERWISE NORMAL ECG WHEN COMPARED WITH ECG OF 03-JUL-2018 23:26, NO SIGNIFICANT CHANGE WAS FOUND Confirmed by KIM DE PAZ MD ([id number]) on 07/17/2018 9:53:03 AM Referred By: Confirmed By:KIM DE PAZ MD
[2018-07-17] MEDS ORDERED: amLODIPine BESYLATE 5 MG TABLET (FP) PO SCH (10:00)
[2018-07-17] MEDS ORDERED: AMIODARONE HCL 200 MG TABLET (FP) PO SCH (10:00)
[2018-07-17] MEDS ORDERED: CHOLECALCIFEROL (VITAMIN D3) 400 UNIT TABLET (FP) PO SCH ×2 (10:00→13:51)
[2018-07-17] MEDS ORDERED: VALSARTAN 160 MG TABLET (UD) PO SCH (10:00)
[2018-07-17] MEDS ORDERED: APIXABAN 2.5 MG TABLET PO SCH (10:00)
[2018-07-17] MEDS ORDERED: HYDROCHLOROTHIAZIDE 25 MG TABLET (FP) PO SCH (10:00)
[2018-07-17] MEDS ORDERED: METOPROLOL TARTRATE 25 MG TABLET (FP) PO SCH (10:00)
[2018-07-17 14:30] VITALS: BP 121/58; PULSE 49; TEMP 98.1
--- NOTE | 2018-07-17 15:13 | DS ---
Physical Exam: SUBJECTIVE: Patient seen and examined at bedside- no acute events overnigt; patient states that she is feeling well- she is no longer having CP; she denies CP/SOB/N/V fevers or chills OBJECTIVE: Vital Signs Period Temp Pulse Resp BP Sys/Berg Pulse Ox Last 24 Hr 97.3 F-99.3 F 49-87 16-20 121-186/58-80 97-98 PHYSICAL EXAM GENERAL: The patient is awake, alert, and fully oriented, in no acute distress.. EYES: PEERLA: EOMI; no scleral icterusa . NECK: no JVD: no lymphadenoapthy LUNGS: CTA B/L; no rales, rhonchi or whezing HEART: Regular rate and rhythm, S1, S2 without murmur, rub or gallop. ABDOMEN: Soft, nontender, nondistended, normoactive bowel sounds, no guarding, no rebound, no hepatosplenomegaly, no masses. EXTREMITIES: 2+ pulses, warm, well-perfused, no edema. PSYCH: Normal mood, normal affect. SKIN: Warm, dry, normal turgor, no rashes or lesions noted. LABS Laboratory Results - last 24 hr 07/16/18 07/16/18 07/16/18 22:40 22:40 22:40 WBC 4.2 RBC 3.48 L Hgb 12.0 Hct 35.6 MCV 102.2 H MCH 34.4 H MCHC 33.7 RDW 13.0 Plt Count 166 MPV 8.6 Absolute Neuts (auto) 2.5 Neutrophils % 60.2 Lymphocytes % 28.7 D Monocytes % 9.1 Eosinophils % 0.9 Basophils % 1.1 Nucleated RBC % 0 PT with INR 12.90 INR 1.09 Sodium 136 Potassium 3.6 Chloride 101 Carbon Dioxide 29 Anion Gap 6 L BUN 19 H Creatinine 1.0 Est GFR (CKD-EPI)AfAm 61.62 Est GFR (CKD-EPI)NonAf 53.17 Random Glucose 97 Calcium 8.7 Phosphorus Magnesium 1.9 Total Bilirubin 0.5 AST 36 ALT 29 Alkaline Phosphatase 44 L Creatine Kinase 145 Troponin I < 0.02 Total Protein 7.0 Albumin 3.7 07/17/18 07/17/18 07/17/18 06:30 06:30 06:30 WBC 3.3 L RBC 3.45 L Hgb 11.7 Hct 34.7 MCV 100.5 H MCH 34.0 H MCHC 33.9 RDW 13.1 Plt Count 174 MPV 8.5 Absolute Neuts (auto) 1.8 Neutrophils % 55.9 Lymphocytes % 34.1 Monocytes % 7.9 Eosinophils % 1.0 Basophils % 1.1 Nucleated RBC % 0 PT with INR 12.80 INR 1.08 Sodium 135 L Potassium 3.4 L Chloride 98 Carbon Dioxide 30 Anion Gap 6 L BUN 18 Creatinine 1.0 Est GFR (CKD-EPI)AfAm 61.62 Est GFR (CKD-EPI)NonAf 53.17 Random Glucose 87 Calcium 8.8 Phosphorus 4.3 Magnesium 2.0 Total Bilirubin 0.8 AST 33 ALT 26 Alkaline Phosphatase 44 L Creatine Kinase Troponin I < 0.02 Total Protein 6.6 Albumin 3.6 HOSPITAL COURSE: Date of Admission:07/16/18 Patient is an 78 year old woman with a PMH Paroxysmal Afib (on eliquis), synchronized cardio versions, CAD, COPD, asthma, hypertension, and hyperlipidemia who presents to the ER with chest pain earlier today. She states that her chest pain is mid-sternal and pressure-like with palpitations. She mentioned to the ED residents her BP reads at home have been as high as 250, which she also complained about the last time she was here. She had an ECHO that showed normal LV function, normal RV function and ejection fraction of 70% She was just recently discharged on 07/04 for the same symptoms. The patient currently denies symptoms. She denies any shortness of breath, history of PE, fever, chills, nausea, vomiting, diarrhea, constipation, urinary symptoms or weakness. Patient says that she took all of her medications today. her troponins were negative times two and no EKG changes. she was restarted on some of her home meds and amlodipine was added- spoke to dr. caputo her thinner sprayer he said to DC her home with olmesartan and amlodipine and to dc the metoprolol and HCTZ. she will be following up with dr. caputo within the next week. she was also instructed to follow a low dosium diet and to check her blood pressures at home Date of Discharge: 07/17/18 Minutes to complete discharge: 35 Discharge Summary Reason For Visit: CHEST PAIN Condition: Stable - Instructions Diet, Activity, Other Instructions: You came to the emergency room with complaints of chest pain and elevated blood pressure. We gave you medication to decrease your blood pressure, in addition, measured your cardiac enzymes which were negative. Your symptoms improved and you were discharged back home. Please resume all of your home medications in addition: Please take the medication, Amlodipine 5mg in the evening for your blood pressure Please DO NOT continue taking Metoprolol 25mg twice a day Please DO NOT continue taking Hydrochlorthiazide 25mg daily Please follow up with your primary care physician, Dr. Caputo, within one week Please follow up with your thinner sprayer, Dr. Caputo, within one week Please monitor your blood pressures at home Please follow a low sodium diet *if you begin to experience worsening chest pains, shortness of breath, headache , vision changes nausea/vomiting please return to the emergency room immediately Referrals: Elio Caputo MD [Staff Physician] - 1 Week Disposition: HOME - Home Medications Comprehensive Discharge Medication List: Ambulatory Orders Cholecalciferol (Vitamin D3) [Vitamin D -] 50,000 unit PO WEEKLY 11/27/15 Nitroglycerin [Nitrostat] 0.4 mg SL PRN PRN 11/27/15 Amiodarone HCl [Cordarone -] 400 mg PO DAILY 03/21/18 Apixaban [Eliquis -] 2.5 mg PO BID 03/21/18 Olmesartan Medoxomil [Benicar -] 20 mg PO DAILY 03/21/18 Amlodipine Besylate [Norvasc -] 5 mg PO DAILY #30 tablet 07/17/18 Problem List - Problems (1) Atypical chest pain Code(s): R07.89 - OTHER CHEST PAIN (2) COPD without exacerbation Code(s): J44.9 - CHRONIC OBSTRUCTIVE PULMONARY DISEASE, UNSPECIFIED (3) Chest pain Code(s): R07.9 - CHEST PAIN, UNSPECIFIED Qualifiers: Chest pain type: unspecified Qualified Code(s): R07.9 - Chest pain, unspecified This patient is new to me today: Yes Date on this admission: 07/17/18 Emergency Visit: Yes ED Registration Date: 07/16/18 Care time: The patient presented to the Emergency Department on the above date and was hospitalized for further evaluation of their emergent condition. Critical Care patient: No - Discharge Referral Referred to [facility] Med P.C.: No
[2018-07-17] MEDS ORDERED: ATORVASTATIN CA 20 MG TABLET (FP) PO SCH (22:00)
== END 2018-07-17 17:34 | disposition home or self-care (01) ==
LOC: JER 21:37 → INTOOBSV 23:52 → JERBED 23:52 → J4S 07-17 01:30
PROVIDERS: ADMIT Internal Medicine; ATTEND Internal Medicine
DX: R07.9 Chest pain, unspecified (principal); I10 Essential (primary) hypertension; E78.5 Hyperlipidemia, unspecified; I25.10 Atherosclerotic heart disease of native coronary artery without angina pectoris; I48.0 Paroxysmal atrial fibrillation; J44.9 Chronic obstructive pulmonary disease, unspecified; Z79.01 Long term (current) use of anticoagulants
CPT/HCPCS: 36415; 71045-TC-FY; 80053; 82550; 83735; 84100; 84484; 85025; 85610; 93005; 93010; 99283-25; G0378

== ENCOUNTER 2019-05-30 00:44 | Emergency (ER) | payer OTHER ==
[2019-05-30 01:04] VITALS: BP 166/79; PULSE 69; TEMP 98.6; BMI 17.6
--- NOTE | 2019-05-30 01:22 | PDOC ---
History of Present Illness - General Chief Complaint: Chest Pain Stated Complaint: CHEST PAIN History Source: Patient - History of Present Illness Initial Comments: 05/30/19 01:39 79-year-old female complaining of midsternal chest pain, slight shortness of breath, patient reports that her blood pressure is high and she has a slight headache. Patient was seen in this ER on 05/28/2019 was admitted for chest pain. Hospital course is significant for a positive troponin which trended down. Patient has history of hypertension, hypercholesteremia, CAD nonobstructive, COPD, A. fib on Eliquis seen in this ER on 05/28/2019. Patient had a troponin level of 0.21. Patient was admitted at the time. Patient had downtrending troponin II days ago. Patient was advised to follow-up with cardiology as an outpatient by Dr. Hameed. Previous chart reviewed Past History - Past Medical History Allergies/Adverse Reactions: Allergies Allergy/AdvReac Type Severity Reaction Status Date / Time No Known Allergies Allergy Verified 05/30/19 01:04 Home Medications: Ambulatory Orders Amiodarone HCl [Cordarone -] 200 mg PO DAILY #60 tablet 05/28/19 Amlodipine Besylate 5 mg PO DAILY 05/28/19 Apixaban [Eliquis] 2.5 mg PO BID 05/28/19 Atorvastatin Ca [Lipitor] 40 mg PO HS #60 tablet 05/28/19 Olmesartan Medoxomil [Benicar] 20 mg PO DAILY 05/28/19 Anemia: No Asthma: No Cancer: No Cardiac Disorders: (Yes, A Fib,CAD) CVA: No COPD: Yes CHF: No Dementia: No Diabetes: No GI Disorders: No Disorders: No HTN: Yes Hypercholesterolemia: Yes Liver Disease: No Seizures: No Thyroid Disease: No - Surgical History Abdominal Surgery: No Appendectomy: No Cardiac Surgery: No Cholecystectomy: No Lung Surgery: No Neurologic Surgery: No Orthopedic Surgery: No - Immunization History Td Vaccination: Yes TDAP Vaccination: Yes Immunization Up to Date: Yes - Psycho Social/Smoking Cessation Hx Smoking Status: No Smoking History: Never smoked Have you smoked in the past 12 months: No Number of Cigarettes Smoked Daily: 0 Hx Alcohol Use: No Drug/Substance Use Hx: No Substance Use Type: None Hx Substance Use Treatment: No Cardiac Specific PMH - Complaint Specific PMHX Pacemaker: No Review of Systems - Review of Systems Able to Perform ROS?: Yes Is the patient limited Slovenian proficient: No Constitutional: No: Symptoms Reported, See HPI, Chills, Diaphoresis, Fever, Loss of Appetite, Malaise, Night Sweats, Weakness, Weight Stable, Unintentional Wgt. Loss, Unexplained wgt Loss, Other Respiratory: Yes: Shortness of Breath Cardiac (ROS): Yes: Chest Pain *Physical Exam - Vital Signs Last Vital Signs Temp Pulse Resp BP Pulse Ox 98.6 F 69 16 166/79 99 05/30/19 01:00 05/30/19 01:00 05/30/19 01:00 05/30/19 01:00 05/30/19 01:00 - Physical Exam General Appearance: Yes: Appropriately Dressed, Thin Respiratory/Chest: positive: Lungs Clear, Normal Breath Sounds Cardiovascular: positive: Regular Rhythm, Regular Rate Gastrointestinal/Abdominal: positive: Normal Bowel Sounds Musculoskeletal: positive: Normal Inspection Extremity: positive: Normal Capillary Refill, Normal Inspection, Normal Range of Motion Integumentary: positive: Normal Color, Dry, Warm Neurologic: positive: zookeeper II-XII NML intact, Fully Oriented, Alert, Normal Mood/Affect, Normal Response, Motor Strength 5/5 Heart Score/ECG Review - History History: Slightly suspicious - Electrocardiogram EKG: Normal - Age Age: >/= 65 - Risk Factors Risk Factors Heart Score: Yes Hx Hypercholesterolemia, Yes Hx Hypertension Based on the list above the patient has:: 1-2 risk factors - Troponin Troponin: </= normal limit - Score Heart Score - Total: 3 - ECG Intrepretation Rhythm: Regular Rhythm Comment:: 05/30/19 03:13 NSR: 70 bpm, prolonged QT 478ms ED Treatment Course - LABORATORY CBC & Chemistry Diagram: 05/30/19 01:17 05/30/19 01:17 - ADDITIONAL ORDERS Additional order review: 05/30/19 01:17 RBC 3.35 L MCV 101.9 H MCHC 34.6 RDW 13.5 MPV 8.0 D Neutrophils % 66.9 Lymphocytes % 21.4 Monocytes % 10.5 H Eosinophils % 0.3 Basophils % 0.9 - RADIOLOGY Radiology Studies Ordered: Category Date Time Status CHEST PA & LAT [RAD] Stat Radiology 05/30/19 01:21 Completed - Medications Given in the ED: ED Medications Discontinued Medications Generic Name Dose Route Start Last Admin Trade Name Glo PRN Reason Stop Dose Admin Acetaminophen 650 mg 05/30/19 02:01 05/30/19 02:22 Tylenol - PO 05/30/19 02:02 650 mg ONCE ONE Administration Aspirin 325 mg 05/30/19 02:00 05/30/19 02:22 Asa - PO 05/30/19 02:01 325 mg ONCE ONE Administration Medical Decision Making - Medical Decision Making 05/30/19 03:13 A: chest pain P: cbc cmp cardiac EK05/30/19 05:47 chest xray: COPD with mild fibrosis. Low thoracic compression fracture may be old. 05/30/19 06:22 second troponin pending. 05/30/19 06:46 second troponin wnl. i spoke to Son. son will come to olive [employer] patient signed out to [facility] Discharge - Discharge Information Problems reviewed: Yes Clinical Impression/Diagnosis: Atypical chest pain Condition: Fair Disposition: HOME - Follow up/Referral Referrals: Ras Mobley MD [Primary Care Provider] - Elio Hameed MD [Staff Physician] - Call tomorrow - Patient Discharge Instructions Patient Printed Discharge Instructions: DI for Atypical Chest Pain Additional Instructions: please follow up with your adz worker as soon as possible. - Post Discharge Activity
[2019-05-30 01:28] LABS: BASO % 0.9 % (0-2.0); EOS % 0.3 % (0-4.5); HEMATOCRIT 34.2 % (32.4-45.2); HEMOGLOBIN 11.8 GM/dL (10.7-15.3); LYMPH % 21.4 % (8-40); MCH 35.3 pg (25.7-33.7); MCHC 34.6 g/dl (32.0-36.0); MEAN CELL VOLUME 101.9 fl (80-96); MONO % 10.5 % (3.8-10.2); NEUT % 66.9 % (42.8-82.8); PLATELET COUNT 168 K/MM3 (134-434); RBC 3.35 M/mm3 (3.60-5.2); RDW 13.5 % (11.6-15.6); WHITE BLOOD COUNT 3.7 K/mm3 (4.0-10.0)
--- NOTE | 2019-05-30 01:29 | PDOC ---
*Physical Exam - Vital Signs Last Vital Signs Temp Pulse Resp BP Pulse Ox 98.6 F 69 16 166/79 99 05/30/19 01:00 05/30/19 01:00 05/30/19 01:00 05/30/19 01:00 05/30/19 01:00 ED Treatment Course - LABORATORY CBC & Chemistry Diagram: 05/30/19 01:17 05/30/19 01:17 Medical Decision Making - Medical Decision Making 05/30/19 01:29 Patient seen by the advanced practice provider under my supervision. Ancillary testing reviewed as necessary. I agree with plan as outlined by the advanced practice provider. Discharge - Discharge Information Problems reviewed: Yes Clinical Impression/Diagnosis: Atypical chest pain Condition: Fair Disposition: HOME - Follow up/Referral Referrals: Ras Mobley MD [Primary Care Provider] - Elio Hameed MD [Staff Physician] - Call tomorrow - Patient Discharge Instructions Patient Printed Discharge Instructions: DI for Atypical Chest Pain Additional Instructions: please follow up with your barrel loader as soon as possible. - Post Discharge Activity
[2019-05-30 01:42] LABS: INR 1.29 (0.83-1.09); PROTHROMBIN TIME (PATIENT) 15.3 SEC (9.7-13.0)
[2019-05-30 01:45] LABS: ACTIVATED PTT 38.1 SECONDS (25.2-36.5)
[2019-05-30 01:54] LABS: ALBUMIN 3.7 g/dl (3.4-5.0); BILIRUBIN,TOTAL 0.9 mg/dL (0.2-1); BLOOD UREA NITROGEN 16.2 mg/dL (7-18); CALCIUM 8.3 mg/dL (8.5-10.1); CREATININE 0.9 mg/dL (0.55-1.3); POTASSIUM 3.6 mmol/L (3.5-5.1); TOT PROT 7.1 g/dl (6.4-8.2)
[2019-05-30] MEDS ORDERED: ASPIRIN 325 MG TABLET PO ONE (02:00)
[2019-05-30] MEDS ORDERED: ACETAMINOPHEN 325 MG TABLET (FP) PO ONE (02:01)
[2019-05-30] MEDS ORDERED: ACETAMINOPHEN 325 MG TABLET (FP) ONE (02:20)
[2019-05-30] MEDS ORDERED: ASPIRIN 325 MG ENTERIC COATED TABLET (FP) ONE (02:20)
--- NOTE | 2019-05-30 10:16 | EKG ---
Test Reason : Blood Pressure : / mmHG Vent. Rate : 070 BPM Atrial Rate : 070 BPM P-R Int : 170 ms QRS Dur : 096 ms QT Int : 478 ms P-R-T Axes : 047 074 035 degrees QTc Int : 516 ms NORMAL SINUS RHYTHM MODERATE VOLTAGE CRITERIA FOR LVH, MAY BE NORMAL VARIANT PROLONGED QT ABNORMAL ECG WHEN COMPARED WITH ECG OF 27-MAY-2019 23:19, NO SIGNIFICANT CHANGE WAS FOUND Confirmed by Juan Ford MD ([id number]) on 05/30/2019 10:15:26 AM Referred By: Confirmed By:Juan Ford MD
--- NOTE | 2019-05-30 12:49 | PDOC ---
*Physical Exam - Vital Signs Last Vital Signs Temp Pulse Resp BP Pulse Ox 98.6 F 69 16 166/79 99 05/30/19 01:00 05/30/19 01:00 05/30/19 01:00 05/30/19 01:00 05/30/19 01:00 - Physical Exam 05/30/19 12:48 Called to patient's bedside. Patient complaining of substernal chest discomfort, climbing off the stretcher. Repeat EKG shows no evidence of acute ischemia and no acute changes from previous. 2 sets of cardiac enzymes within normal limit. Patient had recently been admitted to this hospital for chest pain evaluated by cardiology. Will obtain CTA of chest to rule out PE. If no PE found, will likely discharge. ED Treatment Course - LABORATORY CBC & Chemistry Diagram: 05/30/19 01:17 05/30/19 01:17 - ADDITIONAL ORDERS Additional order review: Laboratory Results 05/30/19 05/30/19 05/30/19 11:00 05:40 01:17 PT with INR INR PTT (Actin FS) Sodium 131 L Potassium 3.6 Chloride 96 L Carbon Dioxide 29 Anion Gap 6 L BUN 16.2 Creatinine 0.9 Est GFR (CKD-EPI)AfAm 69.50 Est GFR (CKD-EPI)NonAf 59.96 Random Glucose 105 Calcium 8.3 L Total Bilirubin 0.9 AST 54 H ALT 51 Alkaline Phosphatase 66 Creatine Kinase 171 Creatine Kinase Index 1.6 CK-MB (CK-2) 2.8 Troponin I 0.03 0.04 0.04 Total Protein 7.1 Albumin 3.7 05/30/19 01:17 PT with INR 15.30 H INR 1.29 H PTT (Actin FS) 38.1 H Sodium Potassium Chloride Carbon Dioxide Anion Gap BUN Creatinine Est GFR (CKD-EPI)AfAm Est GFR (CKD-EPI)NonAf Random Glucose Calcium Total Bilirubin AST ALT Alkaline Phosphatase Creatine Kinase Creatine Kinase Index CK-MB (CK-2) Troponin I Total Protein Albumin 05/30/19 01:17 RBC 3.35 L MCV 101.9 H MCHC 34.6 RDW 13.5 MPV 8.0 D Neutrophils % 66.9 Lymphocytes % 21.4 Monocytes % 10.5 H Eosinophils % 0.3 Basophils % 0.9 - RADIOLOGY Radiology Studies Ordered: Category Date Time Status CHEST CTA [CT] Stat CT Scan 05/30/19 10:50 Completed - Medications Given in the ED: ED Medications Discontinued Medications Generic Name Dose Route Start Last Admin Trade Name Glo PRN Reason Stop Dose Admin Acetaminophen 650 mg 05/30/19 02:01 05/30/19 02:22 Tylenol - PO 05/30/19 02:02 650 mg ONCE ONE Administration Aspirin 325 mg 05/30/19 02:00 05/30/19 02:22 Asa - PO 05/30/19 02:01 325 mg ONCE ONE Administration Discharge - Discharge Information Problems reviewed: Yes Clinical Impression/Diagnosis: Atypical chest pain Condition: Fair Disposition: HOME - Follow up/Referral Referrals: Ras Mobley MD [Primary Care Provider] - Elio Hameed MD [Staff Physician] - Call tomorrow - Patient Discharge Instructions Patient Printed Discharge Instructions: DI for Atypical Chest Pain Additional Instructions: please follow up with your wrist liner as soon as possible. - Post Discharge Activity
--- NOTE | 2019-05-31 11:46 | EKG ---
Test Reason : Blood Pressure : / mmHG Vent. Rate : 061 BPM Atrial Rate : 061 BPM P-R Int : 178 ms QRS Dur : 088 ms QT Int : 506 ms P-R-T Axes : 070 070 040 degrees QTc Int : 509 ms POOR DATA QUALITY, INTERPRETATION MAY BE ADVERSELY AFFECTED NORMAL SINUS RHYTHM PROLONGED QT ABNORMAL ECG WHEN COMPARED WITH ECG OF 30-MAY-2019 01:09, NO SIGNIFICANT CHANGE WAS FOUND Confirmed by JIM FERREIRA, HEAVEN ([id number]) on 05/31/2019 11:46:13 AM Referred By: Confirmed By:HEAVEN FERNANDEZ MD
== END 2019-05-30 14:30 | disposition home or self-care (01) ==
LOC: JER 00:44
DX: R07.89 Other chest pain (principal)
CPT/HCPCS: 36415; 71046-TC-FY; 71275-TC; 80053; 82550; 82553; 84484; 85025; 85610; 85730; 93005; 93010; 99285-25; Q9967

== ENCOUNTER 2021-11-19 21:44 | Observation (INO) | payer OTHER ==
[2021-11-19 21:58] VITALS: BMI 17.6
[2021-11-19 23:05] LABS: BASO % 0.9 % (0-2.0); HEMATOCRIT 35.2 % (32.4-45.2); HEMOGLOBIN 12.2 GM/dL (10.7-15.3); LYMPH % 33.3 % (8-40); MCH 35.6 pg (25.7-33.7); MCHC 34.6 g/dl (32.0-36.0); MEAN CELL VOLUME 103.1 fl (80-96); MEAN PLT VOLUME 7.9 fl (7.5-11.1); MONO % 10.1 % (3.8-10.2); NEUT % 54.7 % (42.8-82.8); PLATELET COUNT 159 10^3/uL (134-434); RBC 3.42 M/mm3 (3.60-5.2); RDW 13.1 % (11.6-15.6); WHITE BLOOD COUNT 3.4 K/mm3 (4.0-10.0)
[2021-11-19 23:27] LABS: CALCIUM 8.8 mg/dL (8.5-10.1)
[2021-11-19 23:28] LABS: ALBUMIN 3.9 g/dl (3.4-5.0); BLOOD UREA NITROGEN 19.2 mg/dL (7-18)
[2021-11-19] MEDS ORDERED: ASPIRIN 81 MG CHEWABLE TABLETS PO ONE (23:29)
[2021-11-19 23:31] LABS: CREATININE 0.9 mg/dL (0.55-1.3)
[2021-11-19 23:32] LABS: BILIRUBIN,TOTAL 0.4 mg/dL (0.2-1); TOT PROT 7.5 g/dl (6.4-8.2)
[2021-11-19] MEDS ORDERED: ASPIRIN 325 MG ENTERIC COATED TABLET (FP) ONE (23:42)
[2021-11-20] MEDS ORDERED: PATIENT'S OWN MEDICATION (NON-FORMULARY) (Olmesartan Medoxomil [Benicar] 20 MG Tablet) PO SCH (04:38)
[2021-11-20] MEDS ORDERED: amLODIPine BESYLATE 5 MG TABLET (FP) PO SCH ×2 (04:38→10:00)
[2021-11-20] MEDS ORDERED: amLODIPine BESYLATE 5 MG TABLET (FP) PO ONE (04:38)
[2021-11-20] MEDS ORDERED: HYDROCHLOROTHIAZIDE 12.5 MG CAPSULE (FP) PO SCH (07:00)
[2021-11-20] MEDS ORDERED: APIXABAN 2.5 MG TABLET ONE (08:48)
[2021-11-20] MEDS ORDERED: AMIODARONE HCL 200 MG TABLET ONE (08:48)
[2021-11-20] MEDS ORDERED: AMIODARONE HCL 200 MG TABLET PO SCH (10:00)
[2021-11-20] MEDS ORDERED: APIXABAN 2.5 MG TABLET PO SCH (10:00)
[2021-11-20] MEDS ORDERED: LOSARTAN POTASSIUM 50 MG TABLET PO SCH ×2 (10:00→22:00)
[2021-11-20 11:16] LABS: EPI CELLS 1 /uL (0-25.1); HYALINE CASTS 0 /uL (0-3.1); URINE APPEARANCE CLEAR; URINE BACTERIA 3 /uL (0-1359); URINE BILIRUBIN NEGATIVE (NEGATIVE); URINE COLOR YELLOW; URINE GLUCOSE (UA) NEGATIVE (NEGATIVE); URINE KETONE NEGATIVE (NEGATIVE); URINE LEUK ESTERASE NEGATIVE (NEGATIVE); URINE NITRITE NEGATIVE (NEGATIVE); URINE PROTEIN NEGATIVE (NEGATIVE); URINE RBC 20 /uL (0-23.9); URINE UROBILINOGEN 0.2 mg/dL (0.2-1.0); URINE WBC 3 /uL (0-25.8)
[2021-11-20 12:20] LABS: BASO % 0.9 % (0-2.0); HEMATOCRIT 36.2 % (32.4-45.2); HEMOGLOBIN 12.1 GM/dL (10.7-15.3); LYMPH % 36.9 % (8-40); MCH 34.4 pg (25.7-33.7); MCHC 33.5 g/dl (32.0-36.0); MEAN CELL VOLUME 102.8 fl (80-96); MEAN PLT VOLUME 8.4 fl (7.5-11.1); NEUT % 52.2 % (42.8-82.8); PLATELET COUNT 166 10^3/uL (134-434); RBC 3.53 M/mm3 (3.60-5.2); WHITE BLOOD COUNT 3.3 K/mm3 (4.0-10.0)
[2021-11-20 12:41] LABS: CALCIUM 8.7 mg/dL (8.5-10.1)
[2021-11-20 12:43] LABS: ALBUMIN 3.5 g/dl (3.4-5.0); BLOOD UREA NITROGEN 15.8 mg/dL (7-18)
[2021-11-20 12:45] LABS: PHOSPHOROUS 3.6 mg/dL (2.5-4.9)
[2021-11-20 12:46] LABS: CREATININE 0.8 mg/dL (0.55-1.3)
[2021-11-20 12:47] LABS: BILIRUBIN,TOTAL 0.6 mg/dL (0.2-1); TOT PROT 6.8 g/dl (6.4-8.2)
[2021-11-20 19:11] VITALS: BP 138/57; PULSE 76; RESP 19; TEMP 97.8
[2021-11-20] MEDS ORDERED: ATORVASTATIN CA 40 MG TABLET (FP) PO SCH (22:00)
[2021-11-21] MEDS ORDERED: amLODIPine BESYLATE 5 MG TABLET (FP) PO SCH (07:00)
== END 2021-11-20 19:11 | disposition home or self-care (01) ==
LOC: JER 21:44 → JERBED 23:24
PROVIDERS: ADMIT Internal Medicine; ATTEND Nurse Practitioner Family
DX: I48.91 Unspecified atrial fibrillation (principal); I25.10 Atherosclerotic heart disease of native coronary artery without angina pectoris; Z98.61 Coronary angioplasty status; I11.9 Hypertensive heart disease without heart failure; Z79.01 Long term (current) use of anticoagulants; E78.5 Hyperlipidemia, unspecified
CPT/HCPCS: 36415; 71045-TC-FY; 80053; 80061; 81003; 83735; 84100; 84443; 84484; 85025; 87086; 93005; 93010; 93306-TC; 99285-25; C9803-CS; G0378; U0003; U0005